=== PATIENT | male | born 1965 | race Caucasian/White ===

== ENCOUNTER 2018-04-18 15:30 | Outpatient (RCR) | payer BC, SELFPAY ==
--- NOTE | 2018-03-09 10:30 | PTTR_ITS ---
DATE: 04/06/18 SUBJECTIVE: Checo indicates today that he has had increased soreness in his L knee for the last few days. Has been trying very hard to pace himself with his activity level, especially things like walking. Did complain of some increased swelling, and noted sensitivity with end range stretching into extension, only limited over pressure was given with end range extension stretches. Manual therapy: ([id number]). Did perform soft tissue stretching of L hamstring , ITB, quad musculature as well as mobilization of patella in all planes, tibiofemoral, anterior, and posterior glides while in seated and supine positions. Gentle soft tissue stretching into end range extension was performed initially was giving patient slight over pressure, but due to complaints of this being uncomfortable, had patient focus on end range extension with towel under heel, pushing knee into full extension independently. Continues to lack approximately 5-10 degrees of end range extension and end range flexion, continues to remain at approximately 130 degrees. Therapeutic procedures ([id number]). * X See flow sheet: Focus was on strengthening of L LE and hip stabilizers as per TKA protocol. * x Provided skilled instruction in proper exercise performance: * x Provided skilled manual cues to facilitate proper muscle recruitment and/ or movement pattern: * Performed 15 mins of wellness as well as IFC and cryotherapy to the L knee with leg elevated on wedge pillow x15 mins. Direct treatment time: 30 mins Total treatment time: 60 mins SG/dl
--- NOTE | 2018-03-22 10:30 | PTTR_ITS ---
DATE: 03/22/18 SUBJECTIVE: Patient states he is less sore today than Monday. States he has been compliant with HEP. Patient educated to focus on ROM exercises at home. He has been icing with his cryocuff OBJECTIVE: Manual therapy: ([id number]). Performed grade 2/3 anterior tibiafemoral joint mobilizations in sitting with distraction. Seated knee flexion stretch. Performed supine tibial distraction to promote total knee extension. Grade 2/3 posterior tibiafemoral mobilizations. Patellafemoral mobilizations all directions. Single knee to chest and hamstring stretch left side. Knee flexion and extension P/AAROM. Knee AAROM after mobilizations and stretching 8-100 degrees. Therapeutic procedures ([id number]). [X] See flow sheet: Continued with left LE strengthening program and ROM. Able to perform 5 minutes pedaling backwards, and 5 minutes pedaling forwards on bike with mild pain. [X] Provided skilled instruction in proper exercise performance: [X] Provided skilled manual cues to facilitate proper muscle recruitment and/or movement pattern: 15 minutes of Wellness portion of the program followed. Inferential stim with cryotherapy x 15 minutes post session. Plan to focus on improving knee ROM emphasized compliancy with home stretching and to focus on the ROM more at home. Direct treatment time: 30 minutes Total treatment time: 60 minutes Geraldine Howard, SPT Mini Medley, MPT
--- NOTE | 2018-03-26 13:25 | PTTR_ITS ---
DATE: 03/26/18 SUBJECTIVE: Checo states that he is doing really well. He has been walking at home as well as his HEP. OBJECTIVE: Manual therapy: ([id number]). mobilization of tib/fem jt including posterior and anterior glides in seated and supine positions. Patellar glides in all directions as well as stretching of hamstrings, ITB and hip flex/quads in modified Jermain test position. LE distractions via leg pulls with over pressure into extension. STM t/o popliteal fossa, ITB and gastroc region. I then continued ROM into extension. He continues to lack approx 5 degrees of ext, and achieved 116 degrees of flex. Therapeutic procedures (64827a N/C). he performed a ther ex routine for global LE strength and stabilization via wellness at no charge. ESTIM, unattended ([id number]) ended with IFC and cryo x 15 min Direct treatment time: 45 min Total treatment time: 65 min
--- NOTE | 2018-03-29 10:30 | PTTR_ITS ---
DATE: March 29, 2018 SUBJECTIVE: Checo notes that last few days he has been really sore. He contributes it to his increased work out post last PT session however is unsure. He notes pain in the distal ITB and into the posterior compartment of his knee. He has not been doing much of anything due to this other than icing. OBJECTIVE: Upon observation incision continues to be healing well. No signs of increased edema. Does present with increased tenderness to the distal ITB and into the distal hamstring, medial compartment. Manual therapy: ([id number]).Patellofemoral joint mobilization all planes to the left knee. Tibiofemoral anterior glides Gr III in seated position to the left knee. Posterior glides to the tibiofemoral joint in supine Gr III to the left knee. Soft tissue stretching to the hamstring, ITB. P/AAROM performed throughout all planes to the left knee. LE distraction via leg pull also provided along with terminal extension stretching. STM throughout the distal ITB into the extensor mechanism and into the posterior hamstring. Good relief post mobilization. Therapeutic procedures (58021p5). * X See flow sheet: Completed open and closed chain stabilization holding on resisted tasks today due to level of irritation. He was able to complete full revolution on stationary bike with first revolution without irritation. * X Provided skilled instruction in proper exercise performance: avoiding compensatory movement promoting body mechanics and postural awareness. Also completed in an alternate fashion to avoid any prolonged stance to reduce irritation to the left knee. * X Provided skilled manual cues to facilitate proper muscle recruitment and/ or movement pattern: Electrical Stim Unattended - Provided to the left knee along with cryotherapy to the posterior and anterior knee with wedge pillow for elevation. This was provided for 15minutes post session. Tolerated session well without complaints of increased irritation. Will monitor his response and continue to advance within symptom allowance. Recommended due to not being back in clinic before next Monday that he complete the stationary bike for ROM. Direct treatment time: 55 minutes Total treatment time: 70 minutes
--- NOTE | 2018-04-04 10:30 | PTTR_ITS ---
DATE: April 04, 2018 SUBJECTIVE: Checo overall pleased with how he is recovering. He follows up with Dr. Leach later today He is having overall less swelling, pain and feels his range continues to improve. He has been doing more walking around campus taking rests as needed. OBJECTIVE: See copy of scanned MD note filed in patients chart Manual therapy: ([id number]).Patellofemoral joint mobilization all planes. Tibiofemoral joint mobilization Gr II/III anterior glides in seated position, posterior glides in supine. Soft tissue stretching to the hamstring, ITB, and SKC. P/AAROM with focus on TKE. LE distraction. Scar tissue mobilization. STM throughout the distal ITB. AA ROM 5-130. Therapeutic procedures ([id number]). * X HEP review: Upgraded to incorporate a TKE stretch * X See flow sheet: Open and closed chain strength and stabilization per protocol. Incorporated fashion pose with resisted theraband. Good isolation noted. Continued to increase repetitions and will continue to advance resistance training within symptom allowance. * X Provided skilled instruction in proper exercise performance: promoting body mechanics and postural awareness. * X Provided skilled manual cues to facilitate proper muscle recruitment and/ or movement pattern: Ended with unattended estim along with cryotherapy to the left knee post session for 15 minutes. Direct treatment time: 45 minutes Total treatment time: 60 minutes
--- NOTE | 2018-04-09 13:00 | PTTR_ITS ---
DATE: April 09, 2018 SUBJECTIVE: Checo notes that he had a good weekend. He did a lot of riding in the car so is a little stiff. He notes less overall soreness since Monday. He also notes that his follow up with his surgeon went great. Next follow up on Jun 20. Continues to note tightness into his hamstring, but less irritation into the distal ITB. Has been utilizing Vit E on his incision. Sleep is improving however still has not gotten a full nights rest. OBJECTIVE: Manual therapy: ([id number]).Patellofemoral joint mobilization all planes to the left knee. Tibiofemoral joint mobilization anterior and posterior glides Gr II/ III in seated and supine position. Sof tissue stretching to the hamstring, ITB, and SKC. Terminal knee extension stretching also provided with LE distraction. Scar tissue mobilization followed. Stitch protruding at distal incision. No drainage or redness noted. Will continue to monitor. Therapeutic procedures ([id number]). * X HEP review: Promoting TKE stretching. Gait mechanics * X See flow sheet: Incorporated open and closed chain stabilization per flow sheet. Completed alternate fashion to reduce stress on the right knee which is close to replacement level. He tolerated this much better in comparison to previous sessions. Advanced to sit to stand transfers with use of Airex under to reduce stress and promote eccentric control. * X Provided skilled instruction in proper exercise performance: promoting proper body mechanics and activation of the quadriceps musculature * X Provided skilled manual cues to facilitate proper muscle recruitment and/ or movement pattern: avoiding compensatory movement patterns. Electrical Stim Unattended : Provided to the left knee at no charge along with cryotherapy post session. Wedge pillow utilized for elevation. Completed for 15 minutes to end todays session. Patient hesitant to advance his strengthening in fear of increased pain. Will continue to advance slowly with PRE's. Direct treatment time: 45 minutes Total treatment time: 60 minutes
--- NOTE | 2018-04-12 08:14 | PTTR_ITS ---
DATE: 04/12/18 NO CHARGE OBJECTIVE: Today I took Checo through his strengthening program in a circuit fashion. Emphasized LE strengthening as well as core stabilization. See flow sheets for lists of exercises, weights and repetitions. He did note increased fatigue throughout the LE. Did report lateral quadriceps discomfort when performing sit to stands. At the conclusion of today's session did have what he describes as increased sensation to the popliteal fossa, not noting pain, but felt as though he had stretched the back of his knee during today's session. This could be contributed to the change in his program or stretching into extension. Will monitor [place]o's response progressing his program accordingly. He received cryotherapy to the left knee at the end of today's session x10 minutes. Direct treatment time: 11:00 til 11:40 A.M. ESTUARDO/arron
--- NOTE | 2018-04-12 10:30 | PTTR_ITS ---
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 He notes generalized stiffness however overall feels that he is holding up well. OBJECTIVE: Manual therapy: ([id number]). Patellofemoral joint mobilization to the left knee all planes. Tibiofemoral anterior glides in seated position Gr II. Posterior glides in supine Gr III. Soft tissue stretching to the hamstring, and SKC. P/ AAROM promoting TKE. Improved TKE post mobilization today. Flexion remains WNL. Therapeutic procedures: Under supervision of Paolo Sommers ATC see his note for specifics. 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 Will monitor his response to this and proceed accordingly. Direct treatment time: 30 minutes Continuation of treatment via ATC. See his note for specifics.
--- NOTE | 2018-04-18 15:30 | PTTR_ITS ---
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 Does not note any increase in pain after last session. OBJECTIVE: Manual therapy: ([id number]). Received patella-femoral mobs in all planes, PA and AP glides to the tibio-femoral joint, soft tissue stretching of hamstring and piriformis. PROM into left knee flexion and extension. Extension ROM coupled with tibial distraction in supine position. Therapeutic procedures ([id number]).After warm up on stationary bike performed modified therex program as per flow sheet focusing on open and closed chain strengthening of left LE. Treatment concluded with cryo for 10 min. Continues to present with excellent ROM into flexion with mild tightness into extension. * X See flow sheet: [] Direct treatment time: 30 min Total treatment time: 40 min
== END 2018-04-20 23:59 | disposition home or self-care (01) ==
LOC: PT 15:30
PROVIDERS: PCP Emergency Medicine; Referring Provider Orthopaedic Surgery Adult Reconstructive Orthopaedic Surgery; Visit Provider Orthopaedic Surgery Adult Reconstructive Orthopaedic Surgery
DX: Z47.1 Aftercare following joint replacement surgery (principal); Z96.652 Presence of left artificial knee joint
CPT/HCPCS: 97014; 97110; 97140

== ENCOUNTER 2018-10-15 12:20 | Outpatient (CLI) | payer BC, SELFPAY ==
[2018-10-15 13:55] LABS: Cholesterol 232 mg/dL (50-200); HDL Cholesterol 49 mg/dL (40-60); LDL CHOLESTEROL 152 mg/dL (<100); Triglyceride 132 mg/dL (30-150)
== END 2018-10-15 12:40 ==
PROVIDERS: PCP Emergency Medicine; Visit Provider Emergency Medicine
DX: E78.5 Hyperlipidemia, unspecified (principal)
CPT/HCPCS: 36415; 80061; 83721

== ENCOUNTER 2019-02-04 09:53 | Outpatient (CLI) | payer BC, SELFPAY ==
[2019-02-04 10:51] LABS: HCT 40.9 % (40.0-50.0); HGB 14.6 g/dL (13.5-17.5); Mean Corp. HGB Concentration 35.7 g/dL (32.0-36.0); Mean Corpuscular Volume 86.8 fL (80-95); Mean Platelet Volume 10.9 fL (8.0-11.0); Platelet Count 194 x1000/uL (130-400); RBC 4.71 m/cumm (4.50-6.00); RBC Distribution Width 13.3 % (11.8-14.1)
[2019-02-04 11:42] LABS: ALT 52 U/L (12-78); AST 27 U/L (15-37); Albumin 4.2 g/dL (3.4-5.0); Alkaline Phosphatase 82 U/L (46-116); Anion Gap 9.2 mmol/L (3-11); BUN 28 mg/dL (7-18); Bilirubin, Total 0.5 mg/dL (0.2-1.0); CO2 27.8 mmol/L (21.0-32.0); CREATININE 0.88 mg/dL (0.70-1.30); Calcium 9.6 mg/dL (8.5-10.1); Chloride 103 mmol/L (98-107); Glucose 124 mg/dL (70-100); Potassium 4.6 mmol/L (3.5-5.1); Sodium 140 mmol/L (136-145); Total Protein 7.5 g/dL (6.4-8.2)
== END 2019-02-04 10:13 ==
PROVIDERS: PCP Emergency Medicine; Visit Provider Family Medicine
DX: Z01.818 Encounter for other preprocedural examination (principal); M25.561 Pain in right knee
CPT/HCPCS: 36415; 80053; 85027

== ENCOUNTER 2020-12-10 04:03 | Outpatient (CLI) | payer BC, SELFPAY ==
[2020-12-10 07:42] LABS: Hemoglobin A1C 5.4 % (<5.7)
[2020-12-10 08:19] LABS: Calculated LDL 129 mg/dL (<100); Cholesterol 205 mg/dL (<200); HDL Cholesterol 42 mg/dL (40-60); Triglyceride 174 mg/dL (<150)
[2020-12-10 18:12] LABS: PSA, Screening <0.1 ng/mL (0.0-3.5)
== END 2020-12-10 04:04 | disposition home or self-care (01) ==
LOC: LBO 04:03
PROVIDERS: PCP Emergency Medicine; Visit Provider Emergency Medicine
DX: E11.9 Type 2 diabetes mellitus without complications (principal); E66.9 Obesity, unspecified; Z12.5 Encounter for screening for malignant neoplasm of prostate
CPT/HCPCS: 36415; 80061; 84153; 83036

== ENCOUNTER 2020-12-14 04:29 | Outpatient (CLI) | payer BC, SELFPAY ==
[2020-12-14 17:11] LABS: Calculated LDL 137 mg/dL (<100); Cholesterol 218 mg/dL (<200); HDL Cholesterol 48 mg/dL (40-60); Triglyceride 168 mg/dL (<150)
[2020-12-14 22:22] LABS: PSA, Diagnostic 0.9 ng/mL (0.0-3.5)
== END 2020-12-14 04:30 | disposition home or self-care (01) ==
LOC: LBO 04:29
PROVIDERS: PCP Emergency Medicine; Visit Provider Emergency Medicine
DX: E78.5 Hyperlipidemia, unspecified (principal); R97.20 Elevated prostate specific antigen [PSA]
CPT/HCPCS: 36415; 80061; 84153

== ENCOUNTER → 2022-03-08 00:33 | Outpatient (CLI) | payer BC, SELFPAY ==
--- OUTSIDE RECORDS SUMMARY | 2022-03-08 00:35 | XMS_ITS | Encounter Summary ---
:1965 Author Organization [facility] [place] [address] Care Team Providers Name Role Phone Jermain Montalvo DO Primary Care Provider Encounter Details Date Type Department Care Team Description 02/19/2019 Telephone Pre-Admission Rayna strange at [facility] [address] [facility] [place] [address] Social History Tobacco Use Types Packs/Day Years Used Date Never Smoker Smokeless Tobacco: Never Used Alcohol Use Standard Drinks/Week Comments Not Currently 0 (1 standard drink = 0.6 oz pure alcoho l) Sex Assigned at Date Recorded Not on file documented as of this encounter Plan of Treatment Upcoming Encounters Date Type Specialty Care Team Description 03/15/2022 Procedure visit Dermatology Olamide Grayson MD [facility] DERMATOLOGY [place], [place] [address] (Wo rk) documented as of this encounter Visit Diagnoses Not on filedocumented in this encounter Care Teams Electrophonic Engineer Relationship Specialty Start Date End Date Jermain Montalvo DO PCP - General 01/28/[address] [place] [address] documented as of this encounter
--- OUTSIDE RECORDS SUMMARY | 2022-03-08 00:35 | XMS_ITS | Encounter Summary ---
:1965 Author Organization [facility] [place] [address] Care Team Providers Name Role Phone Jermain Montalvo DO Primary Care Provider Encounter Details Date Type Department Care Team Description 12/05/2018 External Results Laboratory at Mesfin Meyers MD [address] [place] [address] [place] [address] [phone] Social History Tobacco Use Types Packs/Day Years Used Date Never Smoker Sex Assigned at Date Recorded Not on file documented as of this encounter Plan of Treatment Upcoming Encounters Date Type Specialty Care Team Description 03/15/2022 Procedure visit Dermatology Olamide Grayson MD [facility] DERMATOLOGY [place], [place] [address] (Wo rk) documented as of this encounter Procedures Procedure Name Priority Date/Time Associated Comments Diagnosis HEMOGRAM Routine 12/05/2018 12:00 Results for this PM EDT procedure are i n the results section. TYPE AND SCREEN Routine 12/05/2018 12:00 Results for this (MC/CGP/JUAN) PM EDT procedure a re in the results section. MRSA CULTURE Routine 12/05/2018 12:00 Results for this PM EDT procedure are i n the results section. COMPREHENSIVE Routine 12/05/2018 12:00 Results fo r this METABOLIC PANEL PM EDT procedure ar e in (NON-FASTING) the results section. documented in this encounter Results (ABNORMAL) Staph aureus/MRSA Culture Screen (12/05/2018 12:00 PM EDT[facility] Signature [facility] RESULT MRSA SCREEN [facility] (EXTERNAL/A [facility]) Specimen (Source) Anatomical Collection Method Collection Time Re ceived Time Location / / Volume Laterality Nasal structure 12/05/2018 12:00 12/06/19 19 1:23 (body structure) PM EDT PM EDT Narrative [facility] - 12/06/2018 7:4 0 AM EDT Specimen source: NARES Microbiology susceptibilities will displ ay in 'Abn?' column if performed. NO METHCILLIN RESISTANT STAPH. AUREUS (M RSA) ISOLATED. Mesfin Leach MD MICROBIOLOGY - GENERAL ORDER STEVEN Performing Organization Address City/[facility] Code Phon e Number [facility] [address] [place], [place] [address] (ABNORMAL) Type and screen (LEB/CGP) (12/05/2018 12:00 PM EDT) [facility] gist Method Time Signature ABO Grouping B (External ABO [facility] Lab) [facility] Rh POSITIVE [facility] (External [facility]) AB Screen NEGATIVE NEGATIVE [facility] Interp (External [facility]) Specimen Anatomical Collection Method Collection Time Receive d Time (Source) Location / / Volume Laterality 12/05/2018 12:00 12/05/2018 1:23 PM EDT PM EDT Narrative [facility] - 12/05/2018 3:4 3 PM EDT Has the pt. been transfused or in the last 3 mths? NO Mesfin Leach MD BLOOD BANK ORDERABLES Performing Organization Address City/[facility] Phon e Number [facility] [address] [place], [place] [address] (ABNORMAL) Comprehensive metabolic panel (non-fasting) (12/05/2018 12:00 PM EDT) Analysis Performed At Patho logist Time Signature Sodium 141 135 - 145 [facility] (External mmol/L [facility] Lab) Potassium 4.5 3.5 - 5.1 [facility] (External mmol/L [facility]) Chloride 103 98 - 107 [facility] (External mmol/L [facility]) CO2 28 21 - 32 [facility] (External mmol/L [facility]) Anion Gap 14.5 9 - 16.5 [facility] (External mmol/L [facility]) Osmolality 277 261 - 280 [facility] (External mosm/kg [facility]) Glucose Lvl 110 (ExtH) 74 - 106 [facility] mg/dL [facility] BUN 24 (ExtH) 7 - 18 [facility] mg/dL [facility] Creatinine 1.02 0.70 - [facility] (External 1.30 mg/dL [facility]) BUN/Cre Ratio 23.5 7.0 - 25.0 [facility] (External [facility]) Estimated GFR > 60 mL/min [facility] (External [facility]) Comment: Estimated GFR is to assist you in evalua ting your patient and optimizing drug dosing. Per NKDBP, they classify normal renal function as any GFR > 60 ml/min/1.72m2; chronic kidney disea se when GFR <60, and renal failure when GFR <15. ??This calcu lation may not be valid for patients with atypical muscle mass (very lean or obese), acute renal failure, and in ry ents with diabetic kidney disease. Calcium 9.5 (External Lab) 8.5 - 10.1 mg/dL [facility] Total Protein 8.4 (ExtH) 6.4 - 8.2 g/dL [facility] Albumin 4.6 (External Lab) 3.4 - 5.0 g/dL [facility] Globulin 3.8 (External Lab) 2.7 - 4.5 g/dL [facility] Alb/Globulin Ratio 1.2 (External Lab) 0.8 - 1.4 [facility] Alk Phos 81 (External Lab) 50 - 136 U/L [facility] ALT 45 (External Lab) 16 - 63 U/L [facility] AST 26 (External Lab) 15 - 37 U/L [facility] Total Bilirubin 0.6 (External Lab) 0.2 - 1.0 mg/dL [facility] Specimen Anatomical Collection Method Collection Time Receive d Time (Source) Location / / Volume Laterality 12/05/2018 12:00 12/05/2018 1:23 PM EDT PM EDT Mesfin Leach MD CHEMISTRY ORDERABLES Performing Organization Address City/[facility]/ZIP Code Phon e Number [facility] [address] [place], [place] [address] (ABNORMAL) Hemogram (12/05/2018 12:00 PM EDT) [facility] Method Time Signature WBC 5.5 4.0 - 10.0 [facility] (External 10^3/uL [facility]) RBC 4.76 4.63 - [facility] (External 6.08 [facility]) 10^6/uL Hemoglobin 14.5 13.7 - [facility] (External 17.5 g/dL [facility]) Hematocrit 41.3 40.0 - [facility] (External 51.0 % [facility]) MCV 86.8 79.0 - [facility] (External 92.0 fL [facility]) MCH 30.5 25.6 - [facility] (External 32.2 pg [facility]) MCHC 35.1 32.0 - [facility] (External 36.5 g/dL [facility]) RDWCV 13.4 10.9 - [facility] (External 14.4 % [facility]) RDWSD 41 35 - 46 fL [facility] (External [facility]) Platelets 215 145 - 370 [facility] (External 10^3/uL [facility]) MPV 11.0 9.0 - 12.0 [facility] (External fL [facility]) Periph Smear NO [facility] Rev (External [facility]) Specimen Anatomical Collection Method Collection Time Receive d Time (Source) Location / / Volume Laterality 12/05/2018 12:00 12/05/2018 1:23 PM EDT PM EDT Mesfin Leach MD HEMATOLOGY ORDERABLES Performing Organization Address City/[facility] Phon e Number [facility] [address] [place], [place] [address] documented in this encounter Visit Diagnoses Not on filedocumented in this encounter Care Teams Net Front End Developer Relationship Specialty Start Date End Date Jermain Montalvo DO PCP - General 01/28/[address] [place] [address] (work) documented as of this encounter
--- OUTSIDE RECORDS SUMMARY | 2022-03-08 00:35 | XMS_ITS | Encounter Summary ---
:1965 Author Organization [facility] [place] [address] Care Team Providers Name Role Phone Jermain Montalvo DO Primary Care Provider Encounter Details Date Type Department Care Team Description 02/08/2021 Clinical Support Dermatology at [facility] Yam[place], Neris sit for suture Road Mini Salomon MD removal [address] [place], [place] [address] [facility] [phone] [place] [address] Social History Tobacco Use Types Packs/Day Years Used Date Never Smoker Smokeless Tobacco: Never Used Alcohol Use Standard Drinks/Week Comments Not Currently 0 (1 standard drink = 0.6 oz pure alcoho l) Sex Assigned at Date Recorded Not on file documented as of this encounter Progress Notes Mini Ovalle MD - 02/08/2021 9:40 AM EDT Images from the original note were not included. Patient: Checo Sanchez Date of . 1965 Today's Date: 02/08/2021 Checo Sanchez is a 55 y.o. male here for suture removal, 7 days s/p Mohs for BCC on right paranasalwith advancement flap repair and Mohs for BCC on right nasal dorsum with FTSG. Photograph: Plan: 1. Sutures removed today 2. 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 3. Follow up with Dr. Buck as scheduled - Thursday 02/15 Reviewed and signed by: Mini Ovalle MD Dermatology Resident [facility] documented in this encounter Plan of Treatment Upcoming Encounters Date Type Specialty Care Team Description 03/15/2022 Procedure visit Dermatology Olamide Grayson MD [facility] DERMATOLOGY [place], [place] [address] (Wo rk) documented as of this encounter Visit Diagnoses Diagnosis Visit for suture removal Encounter for removal of sutures documented in this encounter Care Teams Residential Treatment Staff Relationship Specialty Start Date End Date Jermain Montalvo DO PCP - General 01/28/[address] [place] [address] documented as of this encounter
--- OUTSIDE RECORDS SUMMARY | 2022-03-08 00:35 | XMS_ITS | Encounter Summary ---
:1965 Author Organization [facility] [place] [address] Care Team Providers Name Role Phone Jermain Montalvo DO Primary Care Provider Reason for Visit Reason Comments Basal Cell Carcinoma Consultation (Routine) - Closed Specialty Diagnoses / Procedures Referred By Contact Refer red To Contact Dermatology Diagnoses Neoplasm of uncertain behavior of skin Basal cell carcinoma (BCC) of forehead Alayna Villalba MD Leboeuf, Matthew R, MD [facility] [address] [facility] [place] [address] [place] [address] Fax: Referral ID Status Reason Start Date Expiration Date Visits V isits Requested Authorized [id number] Closed Consult, 12/07/2020 12/07/2021 1 1 Test & Treat Encounter Details Date Type Department Care Team Description 02/01/2021 Procedure visit Dermatology at [facility] Basal cell carcinoma (BCC) of dorsum of nose; Annmarie Mckay MD Basal cell carcinoma of right side of no se; [address] [facility] Prophylactic antibiotic [facility] [id number] [place] [phone] [place] [address] Social History Tobacco Use Types Packs/Day Years Used Date Never Smoker Smokeless Tobacco: Never Used Alcohol Use Standard Drinks/Week Comments Not Currently 0 (1 standard drink = 0.6 oz pure alcoho l) Sex Assigned at Date Recorded Not on file documented as of this encounter Last Filed Vital Signs Vital Sign Reading Time Taken Comments Blood Pressure 135/88 02/01/2021 7:58 AM EDT Pulse 60 02/01/2021 7:58 AM EDT Temperature - - Respiratory Rate - - Oxygen Saturation - - Inhaled Oxygen Concentration - - Weight - - Height - - Body Mass Index - - documented in this encounter Patient Instructions Patient InstructionsSaGretel calles, KILN FURNITURE CASTER - 02/01/2021 8:00 AM EDT Your staff Mohs surgeon today was Alexys Siegel MD, PhD. FLAP CLOSURE Your wound(s) was repaired by a flap closure. A flap closure is rearrangement of skin tissue. A flapis performed when the area has too much tension, or when a simple side to side closure cannot be performed, or when a flap would lead to better cosmetic outcome with a flap. You will need to have sutures removed in one week. Caring for a flap is very similar to caring for regular side to side stitches, except more caution should be used when cleaning the incisions as some flaps can be delicate. Instructions for wound care are below. Please keep in mind these are general guidelines. When in doubt, or if you have more specific questions, please call us. Keep below as a reference while caring for your wound(s): Wound Care ??? Gently remove your initial bandage (after 48 hours from surgery). It is normal to have swelling and bruising. ??? Begin wound care as below. ??? If your initial bandage only stayed on for 24 hours (for example, falls off sooner), this is okay. Resume your wound care and bandaging instructions as below. ??? Change your bandage once a day (and whenever it becomes wet or soaks through) continue for 7 days. ??? For bandage changes: o Wash hands with soap and water, or use gloves that you can purchase at a local pharmacy or drug store. o Clean the surgical area with cotton-tipped swabs or soft gauze dipped in soapy water (recommend liquid soap in clean room temperature water). Roll the cotton swab over the incision with soapy water, then with plain water, and then gently pat dry. Do not scrub the area with a washcloth. Do not put direct shower water pressure onto your wound. Do not pick off any scabs. It is okay to allow soapy water to run over your wound in the shower, however. o If you cannot remove any bloody or crusted areas, you may soak the area with wet gauze first for 15 to 20 minutes to help soften it o Pat the area dry with clean gauze or cotton swabs. Do not rub. o Use a cotton swab to apply a generous layer of petrolatum over the incision lines and any open-wound areas. o Make sure your tube or jar of petrolatum is new or unused to prevent prior contamination from entering your wound. Avoid double dipping. o After applying petrolatum, use a clean nonstick gauze or other nonstick dressing, such as Telfa. This may be purchased over the counter at a drug store. Do not use regular gauze as it will stick to your wound and can peel off healing skin with bandage changes. o Secure the bandage with paper tape or a bandage. Band-aids are okay, but typically have more adhesive that can irritate the skin compared to paper tape. This can be purchased at a drug store. o Continue this wound care daily for 7 days. If any areas of the flap were left open to heal, continue to apply Vaseline until healed. o Keep in mind that if you do not want to use a bandage at all due to difficulty, irritation of skin, cost, or inconvenience --- you can certainly avoid bandages altogether. However, it is imperative that you continue with topical petrolatum (plain, fragrance-free). This may need to be applied several times daily if it gets wiped off, washed off, or dries out. Things to purchase for wound care: -Nonstick gauze -A tube or tub of petrolatum jelly (fragrance-free, no dye, not lotion) -paper tape -cotton swabs -gloves (optional) -Dial or other antibacterial liquid soap After Surgery 1. Avoid tobacco, smoking/vapors, and cannabis (marijuana) for at least 3 weeks after your surgery. Smoking impairs healing and leads to worse scarring. Even cutting back on tobacco is helpful if you cannot abstain completely. 2. Limit alcohol intake to one drink per day over the next 3 days. 3. Do not participate in athletic activities for 5-7 days. Athletic activity is a relative term, butthis is considered to be anything that could potentially raise your heartrate or blood pressure. Elevating your heart rate and blood pressure can increase risks of swelling, bleeding, wound opening, orlead to worse scarring. Walking at a leisurely pace is fine for most people, but not if you are going walking for the purpose of exercise. 4. Do not lift anything heavier than 10 pounds until your sutures are removed. 5. Some project controls scheduler may need to be delayed or delegated such as vacuuming, mowing the lawn, snow shoveling, or caring for young children that need to be carried/lifted. Working any major muscle groups increases your heart rate and can increasing bleeding. 6. Avoid swimming, hot tubs, and direct water pressure for 3 weeks after surgery. You may shower once your initial bandage comes off in 48 hours, however. 7. Avoid antibiotic ointments such as triple antibiotic creams. Stick with your wound care instructions, please. 8. Whenever possible, it is helpful to take photographs with your camera or cell phone of any problems or concerns you see with your wound. We often ask for photos when you call with questions. 9. Starting 2 months following surgery, you can begin firm massage to any areas of firm scar along your incision to soften the scar and reduce bumpiness. Do this 3 times per day, 3 minutes each time. Do not start massage before 2 months. 10. Your wound will appear completely healed soon after sutures are removed (about 1 week), but incisions can remain bright red for several weeks. Then the scarring and healing process continues under the skin for 6 months up to 2 years. The scar may become less red, less firm, and more subtle during this time but the rate of improvement varies depending on the person. Most redness, discoloration, bumpiness resolves by 6 months. 11. Keep your follow-up appointments and make sure to continue to have your skin checked, as often as is recommended by your crime scene investigator, for new skin cancers. This is once per year for most patients. 12. Your can expect your scar to be red for several weeks with gradual fading of the redness. The scar will also be raised and lumpy until the dissolvable sutures under the skin get absorbed by your body which can take 3-4 months. The scar will flatten eventually. 13. Occasionally, about 20% of the time, on the face, the stitches under the skin can spit out of the incision to the surface. It can start out looking like a pimple or blemish directly on your incision. Sometimes it can look like a small mini infection so please let us know before you go to another provider for antibiotics. This means that the suture may need to be trimmed or removed when you return for your wound check. This typically occurs a few weeks after surgery if it does occur. 14. To optimize your scar, and best cosmetic result, please avoid direct sunlight to your incision for the first 6 months following surgery. UV ray exposure to your incision may cause the redness to last longer, or to cause permanent darkening of your scar. You can avoid sun by covering your incision w ith a bandage when outdoors, or wearing SPF 30 to 50 sunscreen (broad spectrum). 15. Sometimes after your sutures are removed, your incision may still be healing for 1 more week. Because of this, avoid make-up and sunscreen until approximately 2 weeks after surgery, or sooner if your skin edges look completely sealed. 16. Flaps may sometimes thicken or become firm several weeks after surgery. This is expected in sometypes of flaps and in certain locations on the face. This is called hypertrophy. If this occurs, at your wound check, you may need small amounts of medicine injected into your flap to help it soften orthin. This will be determined at your follow-up visit. 17. Flaps and skin surgery in general can lead to mild sensation loss (numbness) in the area of surgery. Massage starting at 8 weeks after surgery can help. 18. Bruising. It is very common to have bruising in swelling in any area of the face, even in areas that are distant from where we did surgery. This is especially common 24 to 48 hours after surgery when fluid and swelling shifts around in the face. For example, surgery on the forehead, temples, or cheeks often leads to eyelid swelling of both eyes, black eyes, or dark purple bruising. This is expected in most patients and will gradually resolve. However, if you have severe pain not resolving withover the counter medicine, please call us. You can use ice packs or a bag of frozen peas for 15-20 minutes 3-4 times daily to areas of swelling on the face; use caution not to put the icy item directlyon your incision, directly onto your skin as this can damage skin, and avoid prolonged use more than20 minutes. The best way to use ice packs is over the bandage, or a light cloth/paper towel between the ice pack and your skin. You can ice for as many days as needed until swelling has resolved. Antibiotics: If you were given antibiotic prescription, it is important to start them the evening of your surgerydate. Most patients do not need antibiotics after surgery. For pain: Most patients of different ages do not require pain medications. If you do feel soreness or pain, start by taking over the counter extra strength acetaminophen (up to 3000 mg in a 24 hour period). Generally, we like you to avoid NSAIDS (non-steroid anti-inflammatory drugs such as ibuprofen) for the first 48 hours after surgery as this can increase risk of bleeding. However, if acetaminophen is not helping with pain, you can alternate acetaminophen with iburpofen (ibuprofen 400 mg every 4 hours.) Icepacks over your bandage without getting your bandage wet can also help with pain and swelling, for up to 20 minutes at a time (20 minutes off between icing sessions). Frozen peas work well as ice packs. THIS IS AN EXAMPLE OF A PAIN TREATMENT SCHEDULE: 1) You can take 500 mg acetaminophen one tablet by mouth at 6:00pm. This is over the counter. 2) You can take 400 mg of ibuprofen two hours later, at 8:00 pm, or other NSAID such as naproxen, aslong as it does not interact with your other medications and your other doctors have not told you toavoid this. This is over the counter. Check to see how many milligrams (mg) each of your ibuprofen tablets are. Most of the time, ibuprofen comes in 200 mg tablets, so 400 mg would mean taking two of these tablets or capsules. 3) You can take 500 mg of acetaminophen at 10:00 pm. Keep track of your total acetaminophen in a 24 hour period as your maximum should be 3000 mg total in a 24 hour period of this medication. 4) At midnight, you can take another 400 mg of ibuprofen. 5) you can continue on this schedule over the next 2 days, making sure to keep tabs of your total acetaminophen. If you are still in pain after trying the above, please call us. When to call your surgeon: ??? Fever of 100.4 degrees Fahrenheit or higher ??? Bleeding not controlled with direct firm pressure to your wound. Bleeding is most common in the first 48 hours. ??? Pain that is worsening and not relieved by over the counter medications such as acetaminophen (up to 3000 mg in a 24 hour period) ??? Wound reopening after stitching ??? Pus or bad odor from your wound ??? Worsening redness and warmth around your wound ??? If you think your surgery site is infected, please call us before seeking care or antibiotics from other providers ??? Please call us before seeking care in an emergency room or primary care. ??? If you do call, please leave your full name, phone number, date of , date of surgery, and medical record number if you have it. If after hours, please call the terminal system operator or [phone] and ask for the crime scene investigator on-call. If you have any non-urgent questions or concerns, please feel free to call my office or contact me through our patient portal, DIY, at [email or web address] How to contact us during business hours Dermatology at [facility] [address]: Mohs scheduling or Mohs follow-up appointments: [phone] documented in this encounter Progress Notes Alexys Siegel MD - 02/01/2021 8:00 AM EDT Images from the original note were not included. Summary of Procedure(s): Site#1: Right paranasal Tumor Type: basal cell carcinoma Stages to clear tumor: 2 Repair: advancement flap Site#2: Right nasal dorsum Tumor Type: Basal Cell Carcinoma, nodular Stages to clear tumor: 1 Repair: full-thickness skin graft Images: Patient with multiple other sites that will be treated at a future visit. The patient was asked to call with any issues and is aware that I am available 13/03 should questionsarise. Alexys Siegel MD PhD Mohs Micrographic Surgery and Dermatologic Oncology Department of Dermatology Please note that I have reviewed the preoperative checklist from today's nursing visit including relevant social history and medications. I have reviewed the preoperative photos if available and the biopsy report. VITAL SIGNS: BP 135/88 (BP Location (NBP): Left arm, Patient Position: Sitting, BP Cuff Sizes: Adult (25-34 cm)) Pulse 60 PHYSICAL EXAMINATION: General: patient is awake, alert, oriented and in no acute distress. Skin: Focused examination of surgical site(s) performed which shows a pearly plaque. PHYSICIAN REVIEW OF REPORTS, RECORDS, IMAGES: 1) The accompanying pathology report(s) associated with aforementioned biopsy slide(s) were/was alsoreviewed. Assessment: Checo Sanchez is a 55 y.o. male presenting for: 1. Biopsy-proven basal cell carcinoma located on the right paranasal. Frozen biopsy performed today. 2. Biopsy-proven basal cell carcinoma, nodular located on the right nasal dorusm. Frozen biopsy performed today. Plan: 1. Findings from the biopsy report, today's clinical exam, and other pertinent details were reviewedwith patient today. All questions were answered. 2. Discussed treatment options based on the above findings. We recommended Mohs micrographic surgeryfor treatment of this tumor. Mohs micrographic surgery was indicated due to patient, site and/or tumor characteristics (see operative report for specific indication). 3. We discussed risks, benefits, and alternative treatment options to the Mohs micrographic surgery procedure and pertinent information including but not limited to the following: ?? Risks include bleeding, infection, scar, recurrence, incomplete tumor removal or inability to cure with surgery alone if the tumor features are more aggressive than the initial pathology indicates. Occasionally, additional adjuvant treatments may be recommended. Additional risks include large wound, prolonged wound and healing, pain, swelling, bruising, increased appearance of vessels or worseningerythema of baseline skin; more rarely risks include damage to underlying structures such as nerves,cartilage, or muscle which could lead to temporary or permanent loss of sensation or motor function. ?? Benefit is precise tumor removal ?? If reconstruction is performed, it is specific to the patient and defect. ?? Discussed that the shape, size, depth of the wound is often not known until the tumor is cleared and thus the reconstruction options are sometimes not known until after tumor clearance. Occasionally, referrals to other providers may be recommended for reconstruction based on patient preference and need. ?? Reviewed the pros and cons of common reconstructions used for this tumor type, size, and location, and that reconstruction may lead to change in appearance. ?? Natural history of scar was discussed, including that the scar will continue to mature for 1-2 years. Recommended avoidance of special ointments or scar creams, and avoidance of direct sun exposure to the scar for optimal recovery. ?? Reviewed that there are some aspects of cosmesis that are dependent on patient's characteristics such as age, skin laxity/texture factors, inflammatory skin diseases such as rosacea, prior surgery/radiation, degree of actinic damage, smoking status, strength of the patient's immune system, diligentwound care, medications, and genetics. ?? Having Mohs surgery may lead to physical limitations for optimal healing, such as restricted physical activity and heavy lifting. 4. The nature of sun-induced photo-aging and skin cancers was discussed. Recommended sun avoidance when possible, especially peak hours of sun 10 am to 2pm, protective clothing such as wide-brimmed hats and long-sleeved clothing, and the use of SPF broad-spectrum sunscreen SPF 50 or higher. 5. Signs and symptoms of skin cancer reviewed. Patient to report any new, changing, or symptomatic lesions and follow up with his or her crime scene investigator or other skin provider. 6. Discussed avoiding direct sun exposure to scars for best cosmetic result. Note initiated by Adalgisa Santana, RN Adalgisa Santana RN has performed the documentation for this encounter in the presence of and acting as a scribe for Dr. Siegel I performed the above scribed service and agree with the accuracy of the documentation in this encounter. Reviewed and signed by: Alexys Siegel Dermatology [facility] Alexys Siegel MD - 02/01/2021 8:00 AM EDT Frozen Biopsy Procedure: Skin biopsy by shave technique Location: right paranasal Discussed indications for procedure and expectations including risks and benefits. Verbal consent obtained. Skin prep with alcohol. Local anesthesia with 1% xylocaine, 1/100,000 epinephrine. A sample of the lesion was removed by shave technique to the level of the dermis and submitted for frozen sections and revealed basal cell carcinoma. Hemostasis obtained (AlCl and/or electrocautery). There were no complications; the pt. tolerated the procedure well. Alexys Siegel MD PhD Mohs Micrographic Surgery and Dermatologic Oncology Department of Dermatology [address] [place] [address] Mohs micrographic Surgery Operative Report Site#1: Right paranasal Patient name: Checo Sanchez : 1965 Date: 02/01/2021 Staff Surgeon: Alexys Siegel MD PhD Nursing/Road Grader Operator(s): Adalgisa Santana RN, Gretel Brush KILN FURNITURE CASTER, Laura Senior KIER OPERATOR, Ava Viveros [facility], Ton Mendenhall KILN FURNITURE CASTER, Dilcia Smith [facility] Claims Representative (s): Michelle Johnson Pre-operative diagnosis: Basal Cell Carcinoma Post-operative diagnosis: Basal Cell Carcinoma Location/Site: right paranasal Procedure: Mohs micrographic surgery Indication(s) for Mohs micrographic surgery: Anatomic location for tissue conservation Stages: 2 Preoperative size of tumor: 1.0 x 0.8 cm Stage I The nature and purpose of the procedure, associated risks, possible consequences and complications,and alternative forms of treatment were explained in detail. We reviewed the possible repairs based on the clinical appearance of tumor but discussed that often the repair options may not be known until the tumor has hayder extirpated. Informed consent and permission to take photographs were obtained. The site was confirmed with the patient/authorized route service representative/referring physician and/or a photograph form time of biopsy. A pre-operative time-out (procedural pause) was conducted with no unresolved d iscrepancies noted. Local anesthesia was obtained with 1% lidocaine with 1:100,000 epinephrine. The surgical site was prepped and draped in the usual sterile manner. With all visible gross tumor completely excised, the borders of the tumor and 2-3 mm margins were excised as a complete layer. Hemostasis was achieved by electrocoagulation. The excised tissue was oriented and divided into 2 sections, chromacoded, and submitted for frozen sections. The patient tolerated the procedure well and without complications. On microscopic evaluation of the frozen sections, residual tumor was identified as basal cell carcinoma (type of tumor) on section A2 (see section number on map). Stage II The surgical site was re-anesthetized with 1% lidocaine with 1:100,000 epinephrine, re-prepped and redraped in a sterile manner. The residual tumor was re-excised as a complete layer 2-3mm in thickness using the Mohs map to delineate area of residual tumor. Hemostasis was achieved with electrocoagulat ion. The tissue was oriented and divided into 1 sections, chromacoded, and submitted for frozen sections. The patient tolerated the procedure well and without complications. On microscopic evaluation of the frozen sections, no residual tumor was identified on the deep or outer border of the sections. Depth of excision subcutaneous tissue Final defect size: 1.6 x 1.3 cm Alexys Siegel MD PhD Mohs Micrographic Surgery and Dermatologic Oncology Department of Dermatology [address] [place] [address] Repair Report (Flap) Patient name: Checo Sanchez Staff Surgeon: Alexys Siegel MD PhD Nurse Transition(s): same as above assistant account executive: Mini Harris MD, Adalgisa Santana RN Date: 02/01/2021 Clinical Diagnosis: skin and soft tissue defect status post Mohs micrographic surgery Location/Site: right paranasal Indication: repair of wound with hinduism of anatomy/function Defect size to be repaired: 1.6 x 1.3 cm Procedure: advancement flap repair (tissue rearrangement) Final flap size: 5 x 3 cm 2 Procedure Details: Due to the size and location of the defect resulting from the complete removal of the tumor, the postoperative risk of hemorrhage, infection, and the possibility of serious deformity from scarring, and in order to restore proper function and prevent loss of function, the defect was closed with an advancement flap. The nature and purpose of the procedure, associated risks, possible consequences, complications andalternative methods of treatment were explained to the patient in detail. An informed consent was obtained. Local anesthesia was obtained with a solution of 1-% lidocaine with 1:100,000 epinephrine. The surgical site was prepped and draped in the usual sterile manner. Any beveled edges of the defect were repaired with a scalpel blade. The flap was created by making incisions along right paranasal cheek. The flap and the wound edges were undermined, and hemostasis was obtained with electrocoagulation. The flap was advanced onto the defect. The skin edges were closed using 4.0 Monocryl dermal/subcutaneous sutures and 6.0 Prolene skin sutures. Final flap size: 5 x 3 cm2. Estimated blood loss: Minimal. Complications: None. Wound care:Routine. Follow up for suture removal in 7 days. The patient was discharged in good condition. Alexys Siegel MD PhD Mohs Micrographic Surgery and Dermatologic Oncology Department of Dermatology [address] [place] [address] Note initiated by Gretel Brush CMA. Gretel Brush CMA has performed the documentation for this encounter in the presence of and acting as a scribe for Dr. Siegel I performed the above scribed service and agree with the accuracy of the documentation in this encounter. Reviewed and signed by: Alexys Siegel [facility] Frozen Biopsy Procedure: Skin biopsy by shave technique Location: right nasal dorsum Discussed indications for procedure and expectations including risks and benefits. Verbal consent obtained. Skin prep with alcohol. Local anesthesia with 1% xylocaine, 1/100,000 epinephrine. A sample of the lesion was removed by shave technique to the level of the dermis and submitted for frozen sections and revealed basal cell carcinoma, nodular. Hemostasis obtained (AlCl and/or electrocautery). There were no complications; the pt. tolerated the procedure well. Alexys Siegel MD PhD Mohs Micrographic Surgery and Dermatologic Oncology Department of Dermatology [address] [place] [address] Mohs micrographic Surgery Operative Report Site#2: Right nasal dorsum Patient name: Checo Sanchez : 1965 Date: 02/01/2021 Staff Surgeon: Alexys Siegel MD PhD Nursing/Road Grader Operator(s): Adalgisa Santana RN, Gretel Brush CMA, Laura Senior LPN, Ava Viveros CMA, Ton Mendenhall CMA, Dilcia Smith CMA Claims Representative (s): Michelle Johnson Pre-operative diagnosis: Basal Cell Carcinoma nodular Post-operative diagnosis: Basal Cell Carcinoma nodular Location/Site:right nasal dorsum Procedure: Mohs micrographic surgery Indication(s) for Mohs micrographic surgery: Anatomic location for tissue conservation Stages: 1 Preoperative size of tumor: 0.5 x 0.4 cm Stage I The nature and purpose of the procedure, associated risks, possible consequences and complications,and alternative forms of treatment were explained in detail. We reviewed the possible repairs based on the clinical appearance of tumor but discussed that often the repair options may not be known until the tumor has hayder extirpated. Informed consent and permission to take photographs were obtained. The site was confirmed with the patient/authorized route service representative/referring physician and/or a photograph form time of biopsy. A pre-operative time-out (procedural pause) was conducted with no unresolved d iscrepancies noted. Local anesthesia was obtained with 1% lidocaine with 1:100,000 epinephrine. The surgical site was prepped and draped in the usual sterile manner. With all visible gross tumor completely excised, the borders of the tumor and 2-3 mm margins were excised as a complete layer. Hemostasis was achieved by electrocoagulation. The excised tissue was oriented and divided into 2 sections, chromacoded, and submitted for frozen sections. The patient tolerated the procedure well and without complications. On microscopic evaluation of the frozen sections, no residual tumor was identified on the deep or outer border of the sections. The final size of the defect after complete tumor removal was 0.9 x 0.8 cm, extending to level of subcutaneous tissue. Aleyxs Siegel MD PhD Mohs Micrographic Surgery and Dermatologic Oncology Department of Dermatology [address] [place] [address] Repair Report (Burow's Full-thickness skin graft) Patient name: Checo Sanchez Staff Surgeon: Alexys Siegel MD PhD Nurse Transition(s): same as above Clinical Diagnosis: skin and soft tissue defect status post Mohs micrographic surgery Location/Site: right nasal dorsum Indication: repair of wound with hinduism of anatomy/function Defect size to be repaired: 0.9 x 0.8 cm Procedure: Reji's full-thickness skin graft Final graft size: 0.9 x 0.8 cm Graft donor site: redundant tissue from the right paranasal Procedure Details: Due to the size and location of the defect resulting from the complete removal of the tumor, the postoperative risk of hemorrhage, infection, and the possibility of serious deformity from scarring, and in order to restore proper function and prevent loss of function, the defect was closed with the following graft repair. The nature and purpose of the procedure, associated risks, possible consequences, complications andalternative methods of treatment were explained to the patient in detail. An informed consent was obtained. Local anesthesia was obtained with 1-% lidocaine with 1:100,000 epinephrine. The surgical site was prepped and draped in the usual sterile manner. Procedural pause (timeout performed). First, any beveled edges of the defect were undermined with scissors. A Reji's graft was designed adjacent to the defect using tissue redundancy, and strategically to minimize tension vectors affecting free margin(s). The Burow's graft borders were incised down to the dermal subcutaneous junction and graft excised. Hemostasis was achieved with electrocoagulation. The graft donor site (redundancy) was located on the right paranasal and repaired primarily with 4.0 Monocryl subcutaneous/dermal sutures and 6.0 Prolene epidermal sutures. The full-thickness skin graft was defatted and trimmed to fit the defect and sutured into place with 6.0 Prolene sutures. After the resulting closure, there was no active bleeding from the incision site. There was minimalto no distortion to surrounding anatomic structures. The surgical site was cleaned and covered with white petrolatum and a Xeroform and gauze pressure dressing. The patient tolerated the procedure welland without complications and was given both verbal and written instructions on postoperative wound care. Follow up for suture removal in 7 days. The patient was discharged in good condition. Total local anesthesia with 1% lidocaine with 1:100,000 epinephrine used: 15 cc Total local with 0.25% bupivacaine with 1:100,000 epinephrine used: 3 cc Preoperative Medications: None Post-operative medications: Keflex 500 mg PO BID x 7 days Note initiated by BERENICE Bernardo CMA has performed the documentation for this encounter in the presence of and acting as a scribe for Dr. Cielo Lord performed the above scribed service and agree with the accuracy of the documentation in this encounter. Reviewed and signed by: Alexys Siegel [facility] Alexys Siegel MD PhD Mohs Micrographic Surgery and Dermatologic Oncology Department of Dermatology [address] [place] [address], [place] [address] documented in this encounter Plan of Treatment Upcoming Encounters Date Type Specialty Care Team Description 03/15/2022 Procedure visit Dermatology Olamide Grayson MD [facility] D[facility]Y [place], [place] [address] (Wo rk) documented as of this encounter Visit Diagnoses Diagnosis Basal cell carcinoma (BCC) of dorsum of nose Basal cell carcinoma of right side of no se Basal cell carcinoma of skin of other an d unspecified parts of face Prophylactic antibiotic Encounter for long-term (current) use of antibiotics documented in this encounter Care Teams Grated Cheese Maker Relationship Specialty Start Date End Date Jermain Montalvo DO PCP - General 01/28/[address] [place] [address] documented as of this encounter
--- OUTSIDE RECORDS SUMMARY | 2022-03-08 00:35 | XMS_ITS | Encounter Summary ---
:1965 Author Organization [facility] [place] [address] Care Team Providers Name Role Phone Jermain Montalvo DO Primary Care Provider Encounter Details Date Type Department Care Team Description 11/15/2017 Abstract Luisa Gross Conversion Apd Conversion, Flowsheet Results Provider, [place] [address] Social History Tobacco Use Types Packs/Day Years Used Date Never Smoker Sex Assigned at Date Recorded Not on file documented as of this encounter Last Filed Vital Signs Vital Sign Reading Time Taken Comments Blood Pressure - - Pulse - - Temperature - - Respiratory Rate - - Oxygen Saturation - - Inhaled Oxygen - - Concentration Weight 95.9 kg (211 lb 6.7 11/15/2017 3:45 Sourced from [facility] oz) PM EDT Conversion Height 185 cm (6' 0.84) 11/15/2017 3:45 Sourced from [facility] PD PM EDT Conversion Body Mass Index 28.02 11/15/2017 3:45 PM EDT documented in this encounter Plan of Treatment Upcoming Encounters Date Type Specialty Care Team Description 03/15/2022 Procedure visit Dermatology Olamide Grayson MD [facility] DER[facility] [place], [place] [address] (Wo rk) documented as of this encounter Visit Diagnoses Not on filedocumented in this encounter Care Teams Financial Brokers Relationship Specialty Start Date End Date Jermain Montalvo DO PCP - General 01/28/[address] [place], [place] [address] documented as of this encounter
--- OUTSIDE RECORDS SUMMARY | 2022-03-08 00:35 | XMS_ITS | Encounter Summary ---
:1965 Author Organization [facility] Address [address] [place] [address] Care Team Providers Name Role Phone Jermain Montalvo DO Primary Care Provider Reason for Visit Reason Comments Follow-up consent signing RT TKR Encounter Details Date Type Department Care Team Description 02/15/2019 Office Visit Orthopaedics at [facility] Prim ary osteoarthritis Peck Day MD of right knee 10 [address] Gross [address] [place] [address] [phone] [place] [address] Social History Tobacco Use Types Packs/Day Years Used Date Never Smoker Sex Assigned at Date Recorded Not on file documented as of this encounter Last Filed Vital Signs Vital Sign Reading Time Taken Comments Blood Pressure 128/81 02/15/2019 8:01 AM EDT Pulse 51 02/15/2019 8:01 AM EDT Temperature - - Respiratory Rate - - Oxygen Saturation 98% 02/15/2019 8:01 AM EDT Inhaled Oxygen Concentration - - Weight 95.3 kg (210 lb) 02/15/2019 8:01 AM EDT Height 185.4 cm (6' 1) 02/15/2019 8:01 AM EDT Body Mass Index 27.71 02/15/2019 8:01 AM EDT documented in this encounter Patient Instructions Patient InstructionsFany Enriquez RN - 02/15/2019 8:00 AM EDT Surgical Consent -Surgery: Right total knee replacement with a Gutierrez and Nephew component Date: 02/26/19 - Non-operative options were reviewed: activity modification, physical therapy, medication, injection, assistive devices. The patient has failed with these non- operative modalities. - The patient is significantly impacted with their worsening pain, weakness and decreased range of motion. The pain is affecting their quality of life and ability to perform ADL's. The patient would like to proceed with surgical intervention and will be prepared for surgery at [facility] on 02/26/19. - The consent was reviewed with the patient in its entirety and signed during the office visit today. - I reviewed the surgical as well as non-operative measures, and we discussed the risks of infection, blood clot, fracture, dislocation, leg length inequality, ongoing pain, nerve or blood vessel injury, reoperation and the risk of anesthesia. Pre Op Medical Clearance - The patient has been seen by their PCP and has been medically cleared to proceed with the planned procedure. Pre Op Instructions - No food or drink after midnight the night before surgery. - Hibiclens antimicrobial wash was provided to the patient today. Please wash with Hibiclens the night before surgery and the morning of surgery, paying special attention to the surgical site area. Useclean towels with each shower, put on clean clothes after each shower, and put clean sheets on the bed the night before surgery. You may use your own face wash and shampoo. Recommend avoiding use on genital region. - Confirmed that patient obtained Mupirocin from the pharmacy and reviewed instructions to apply small amount to both nostrils morning and night for 5 consecutive days the week prior to surgery. - You may continue to use NSAIDs for pain control up to the day prior to surgery. (Advil, Motrin, Aleve, ibuprofen, naproxen) - If you take multivitamins containing Vitamin K, Vitamin E, Fish Oil or herbal supplements, you should stop these medications 7 days prior to surgery. - If you take any of the following medications, please contact the office for instructions on when to stop them prior to surgery: methotrexate, Arava (leflunomide), Gold, Azulfidine (sulfasalazine), Plaquenil (hydroychloroquine), Imuran (azathioprine), cyclosporine, Cytoxan (cyclophosphamide), Cuprimine (penicillamine), Enbrel (etanercept ), Humira (adalimumab), Remicade (infliximab), Kineret (anakinra), Rituxan (rituximab). - Items to bead picker and have at home for use after surgery: Prune juice, bottle of Aspirin 81mg tabs,Colace (docusate sodium) 100mg capsules, Miralax powder (polyethylene glycol), Bottle of Extra Strength Tylenol (acetaminophen) 500mg tabs. Sleep Apnea: - Have you ever been diagnosed with sleep apnea? no - If you have a CPAP (continuous positive airway pressure) machine, please bring it with you on the day of surgery. Pre Admission Testing (PAT) - The PAT office will send you a letter in the mail with a phone number and a time to call in. During that call they will give you a 'tentative' arrival time for surgery. Your 'actual' arrival time will be confirmed the day before surgery by a phone call from the Pre-op staff. If you have not receivedyour letter within a week of your surgery, you can reach the nurses in the PAT office at . DVT Prevention - Have you ever had a clot in your leg (Deep Vein Thrombosis or DVT) or a clot in your lung (Pulmonary Embolism or PE)? no - Have any of your family members ever had a DVT or PE? no - Have you had a personal history of cancer in the last two years? no - Do you have a clotting or bleeding disorder? no - Do you take any blood thinning medications such as Coumadin (warfarin), Plavix (clopidogrel) or Xarelto (rivaraoxaban)? no - The patient has no risk factors for thromboembolic disease, in other words no previous DVT (a clotin your leg) or PE (a clot in your lung), no cancer history in the last 2 years, no family history of DVT, PE or clotting disorder and consequently we will use aspirin 81 mg by mouth twice a day for 4 weeks after surgery for clot prevention. Post Op Instructions -Pain medication will be prescribed upon discharge from the hospital -Narcotic pain medications can cause constipation. We recommend taking over the counter Colace (docusate) 100mg by mouth twice daily while taking the pain medication. - After surgery, you can also use Tylenol (acetaminophen) for pain. Extra Strength Tylenol 500mg tablets. Take 2 tablets, 3 times a day. DO NOT EXCEED 3000mg in a 24 hour period. Anesthesia and code status - Anesthesia: Spinal and Sedation Code Status: Full code. Rehabilitation and Post Op Instructions - Rehabilitation: He plans to go home after surgery with VNA for Physical Therapy. - Expected Length of Stay in hospital:1-2 days - Support at home after surgery: Mother/Friend - Best phone number to reach you at after surgery: [phone] - You may shower the day after surgery. No baths, pools , hot tubs or submerging the incision for 1 month post-op or until the wound is completely healed. - Disposition: A post-operative follow-up appointment has already been scheduled. Please plan to arrive early for check-in and x-rays. - No driving for 4 weeks after surgery. - Dressing can be removed 5 days after surgery. You will be given another dressing to apply once thefirst is removed. Remove 5 days after applying. - Ice is recommended for 20 minutes of every hour. - Bruising, swelling and pain are to be expected during the post-operative recovery period and should resolve over time. Please keep in mind that the initial recovery period is four weeks and total recovery is one year. - Some numbness, burning or stinging can be a normal part of healing after surgery. - Lifting restriction of 10lbs for post-operative month 1, then lifting restriction of 25 lbs for post-op months 2 and 3. Avoid high impact exercises. Avoid twisting motions. Do not pivot on your operative leg. Returning to high impact/endurance activities should be to tolerance after post-op month 3. Additional Instructions - No dental procedures for 1 month PRIOR to surgeryand 6 months AFTER surgery. Please call us for antibiotics prior to any dental work. - Bring your walker with you on the day of surgery. Physical therapy will adjust the height for you and assist with proper use. - Post-op follow-up visits are scheduled at 1 month, 3 months, 1 year, 5 year, 10 years. You will have x-rays at all of these visits with the exception of the 3 month visit. - If you have any questions, please call us at . You can ask to speak with any of our Registered Nurses. - Patient was provided with the Opioid Factsheet, material reviewed and patient verbalized understanding documented in this encounter Progress Notes Fany Enriquez RN - 02/15/2019 8:00 AM EDT Surgical Consent -Surgery: Right total knee replacement with a Gutierrez and Nephew component Date: 02/26/19 - Non-operative options were reviewed: activity modification, physical therapy, medication, injection, assistive devices. The patient has failed with these non- operative modalities. - The patient is significantly impacted with their worsening pain, weakness and decreased range of motion. The pain is affecting their quality of life and ability to perform ADL's. The patient would like to proceed with surgical intervention and will be prepared for surgery at [facility] on 02/26/19. - The consent was reviewed with the patient in its entirety and signed during the office visit today. - I reviewed the surgical as well as non-operative measures, and we discussed the risks of infection, blood clot, fracture, dislocation, leg length inequality, ongoing pain, nerve or blood vessel injury, reoperation and the risk of anesthesia. Pre Op Medical Clearance - The patient has been seen by their PCP and has been medically cleared to proceed with the planned procedure. Pre Op Instructions - No food or drink after midnight the night before surgery. - Hibiclens antimicrobial wash was provided to the patient today. Please wash with Hibiclens the night before surgery and the morning of surgery, paying special attention to the surgical site area. Useclean towels with each shower, put on clean clothes after each shower, and put clean sheets on the bed the night before surgery. You may use your own face wash and shampoo. Recommend avoiding use on genital region. - Confirmed that patient obtained Mupirocin from the pharmacy and reviewed instructions to apply small amount to both nostrils morning and night for 5 consecutive days the week prior to surgery. - You may continue to use NSAIDs for pain control up to the day prior to surgery. (Advil, Motrin, Aleve, ibuprofen, naproxen) - If you take multivitamins containing Vitamin K, Vitamin E, Fish Oil or herbal supplements, you should stop these medications 7 days prior to surgery. - If you take any of the following medications, please contact the office for instructions on when to stop them prior to surgery: methotrexate, Arava (leflunomide), Gold, Azulfidine (sulfasalazine), Plaquenil (hydroychloroquine), Imuran (azathioprine), cyclosporine, Cytoxan (cyclophosphamide), Cuprimine (penicillamine), Enbrel (etanercept ), Humira (adalimumab), Remicade (infliximab), Kineret (anakinra), Rituxan (rituximab). - Items to bead picker and have at home for use after surgery: Prune juice, bottle of Aspirin 81mg tabs,Colace (docusate sodium) 100mg capsules, Miralax powder (polyethylene glycol), Bottle of Extra Strength Tylenol (acetaminophen) 500mg tabs. Sleep Apnea: - Have you ever been diagnosed with sleep apnea? no - If you have a CPAP (continuous positive airway pressure) machine, please bring it with you on the day of surgery. Pre Admission Testing (PAT) - The PAT office will send you a letter in the mail with a phone number and a time to call in. During that call they will give you a 'tentative' arrival time for surgery. Your 'actual' arrival time will be confirmed the day before surgery by a phone call from the Pre-op staff. If you have not receivedyour letter within a week of your surgery, you can reach the nurses in the PAT office at . DVT Prevention - Have you ever had a clot in your leg (Deep Vein Thrombosis or DVT) or a clot in your lung (Pulmonary Embolism or PE)? no - Have any of your family members ever had a DVT or PE? no - Have you had a personal history of cancer in the last two years? no - Do you have a clotting or bleeding disorder? no - Do you take any blood thinning medications such as Coumadin (warfarin), Plavix (clopidogrel) or Xarelto (rivaraoxaban)? no - The patient has no risk factors for thromboembolic disease, in other words no previous DVT (a clotin your leg) or PE (a clot in your lung), no cancer history in the last 2 years, no family history of DVT, PE or clotting disorder and consequently we will use aspirin 81 mg by mouth twice a day for 4 weeks after surgery for clot prevention. Post Op Instructions -Pain medication will be prescribed upon discharge from the hospital -Narcotic pain medications can cause constipation. We recommend taking over the counter Colace (docusate) 100mg by mouth twice daily while taking the pain medication. - After surgery, you can also use Tylenol (acetaminophen) for pain. Extra Strength Tylenol 500mg tablets. Take 2 tablets, 3 times a day. DO NOT EXCEED 3000mg in a 24 hour period. Anesthesia and code status - Anesthesia: Spinal and Sedation Code Status: Full code. Rehabilitation and Post Op Instructions - Rehabilitation: He plans to go home after surgery with [facility]NA for Physical Therapy. - Expected Length of Stay in hospital:1-2 days - Support at home after surgery: Mother/Friend - Best phone number to reach you at after surgery: [phone] - You may shower the day after surgery. No baths, pools , hot tubs or submerging the incision for 1 month post-op or until the wound is completely healed. - Disposition: A post-operative follow-up appointment has already been scheduled. Please plan to arrive early for check-in and x-rays. - No driving for 4 weeks after surgery. - Dressing can be removed 5 days after surgery. You will be given another dressing to apply once thefirst is removed. Remove 5 days after applying. - Ice is recommended for 20 minutes of every hour. - Bruising, swelling and pain are to be expected during the post-operative recovery period and should resolve over time. Please keep in mind that the initial recovery period is four weeks and total recovery is one year. - Some numbness, burning or stinging can be a normal part of healing after surgery. - Lifting restriction of 10lbs for post-operative month 1, then lifting restriction of 25 lbs for post-op months 2 and 3. Avoid high impact exercises. Avoid twisting motions. Do not pivot on your operative leg. Returning to high impact/endurance activities should be to tolerance after post-op month 3. Additional Instructions - No dental procedures for 1 month PRIOR to surgeryand 6 months AFTER surgery. Please call us for antibiotics prior to any dental work. - Bring your walker with you on the day of surgery. Physical therapy will adjust the height for you and assist with proper use. - Post-op follow-up visits are scheduled at 1 month, 3 months, 1 year, 5 year, 10 years. You will have x-rays at all of these visits with the exception of the 3 month visit. - If you have any questions, please call us at . You can ask to speak with any of our Registered Nurses. - Patient was provided with the Opioid Factsheet, material reviewed and patient verbalized understanding Iqra Alexander LNA - 02/15/2019 8:00 AM EDT REVIEW OF SYMPTOMS: Constitutional: Denies fever, chills, fatigue Cardiovascular: Denies chest pain Respiratory: Denies shortness of breath Gastrointestinal: Denies nausea, vomiting, diarrhea, constipation or abdominal pain Neurovascular: Denies numbness or tingling Musculoskeletal: Admits pain in the right knee depending on activity Psychiatric: Mood and affect appropriate Laura Kemp Maeve - 02/15/2019 8:00 AM EDT REVIEW OF SYMPTOMS: Constitutional: Denies fever, chills, fatigue Cardiovascular: Denies chest pain Respiratory: Denies shortness of breath Gastrointestinal: Denies nausea, vomiting, diarrhea, constipation or abdominal pain Neurovascular: Denies numbness or tingling Musculoskeletal: Admits pain in the right knee depending on activity Psychiatric: Mood and affect appropriate PHYSICAL EXAM: Constitutional : alert, in no acute distress, well-developed, well-nourished, well-groomed, body habitus normal Head/Face : Atraumatic, normocephalic Gait/Station: Normal Gait, Station normal . General: alert and oriented. He appears in no acute discomfort and is resting comfortably in a chair in the exam room. Lumbar/Pelvis: Full ROM of lumbar spine in all planes, no point tenderness, no SI joint tenderness Right lower extremity : Hip: Inspection/Plan: no tenderness to palpation, no greater trochanteric tenderness, no effusion, no warmth, no swelling. Range of Motion: Full and painless ROM Strength: 5/5 Stability: normal Test/Signs Thigh: no tenderness, no ecchymosis, no swelling Knee : Flexion 0-129 Lower leg: No tenderness to palpation, no swelling, no ecchymosis, stable ligaments, mid flexion ACL looseness Left lower extremity : Hip: Inspection/Plan: no tenderness to palpation, no greater trochanteric tenderness, no effusion, no warmth, no swelling Range of Motion: Full and painless ROM Strength: 5/5 Stability: normal Test/Signs Thigh: no tenderness, no ecchymosis, no swelling Knee : Flexion 0-128 Lower leg: No tenderness to palpation, no swelling, no ecchymosis Muscle tone: tone normal Leg Length Discrepancy: No Skin: no erythema present, no ecchymosis present, no signs of skin lesions or infection Sensation: : normal sensation, neurovascularly intact Mental status Examination: grossly oriented to person, place and time Mood and Affect: mood normal, affect appropriate Imaging Results: Impression/Plan: Right knee pain I Laura Kemp am acting as scribe for Mesfin Leach MD. All work documented was performed by Mesfin Leach MD. I, Mesfin Leach MD personally performed the services described in this documentation, as scribed by Laura Kemp is both accurate and complete. documented in this encounter Plan of Treatment Upcoming Encounters Date Type Specialty Care Team Description 03/15/2022 Procedure visit Dermatology Olamide Grayson MD [facility] [address] [place], [place] [address] (Wo rk) documented as of this encounter Visit Diagnoses Diagnosis Primary osteoarthritis of right knee Primary localized osteoarthrosis, lower leg documented in this encounter Care Teams Solderer Assembly Repair Relationship Specialty Start Date End Date Jermain Montalvo DO PCP - General 01/28/13 [facility] [address] [place] [address] documented as of this encounter
--- OUTSIDE RECORDS SUMMARY | 2022-03-08 00:35 | XMS_ITS | Encounter Summary ---
:1965 Author Organization [facility] [place] [address] Care Team Providers Name Role Phone Jermain Montalvo DO Primary Care Provider Reason for Visit Reason Comments Follow Up Surgery right total knee Encounter Details Date Type Department Care Team Description 03/29/2019 Office Visit Orthopaedics at [facility]ry Harper tatus post total Charlton Day ROBERTH Castellon right knee 10 Luisa [address] Day 10 [address] [place] [address] [facility] on 02/26/19 [place] [id number] (Wo rk) Social History Tobacco Use Types Packs/Day Years Used Date Never Smoker Smokeless Tobacco: Never Used Alcohol Use Standard Drinks/Week Comments Not Currently 0 (1 standard drink = 0.6 oz pure alcoho l) Sex Assigned at Date Recorded Not on file documented as of this encounter Progress Notes Ary Alexander PA - 03/29/2019 2:00 PM EDT Date of Surgery: 02/26/2019 Procedure: Right total knee arthroplasty Checo Sanchez is a 53 y.o. male presents today for a first postoperative visit after undergoing a total knee arthroplasty with Dr. Leach. He is currently full weightbearing without an assistive device. Pain: Minimal pain at this time Current pain medications: Tylenol, Meloxicam, Dilaudid once every several days. DVT Prophylaxis: ASA 81mg BID Physical Therapy: Outpatient twice weekly PHYSICAL EXAM: Well-appearing male in NAD. A&O x 3 and answers all questions appropriately. Easily gets up from a seated position. Normal gait. Mild generalized tenderness. Mild residual soft tissue swelling present. No effusion. No erythema, warmth or ecchymosis. Incision is well healed without erythema or drainage. Knee ROM: 130 degrees flexion, 6 degrees extension Strength: 5/5 knee flexion and extension Negative Madeline's. No varus or valgus instability. Motor and sensory function are intact in the superficial peroneal, deep peroneal, and tibial nerve distributions. Calves are soft and nontender. Negative Allyson's. X-RAYS: Weightbearing PA, lateral and sunrise views were obtained and demonstrate a stable well seated total knee arthroplasty in good alignment with no evidence of loosening or periprosthetic fracture ASSESSMENT: 4 weeks s/p Right total knee arthroplasty with Dr. Leach. PLAN: Continue weightbearing as tolerated Slowly and gradually increase activity to tolerance Continue use of ice, elevation and compression as needed for swelling Continue working on range of motion including stretching, strengthening, heat before exercise, patellar mobilization and scar massage with Vitamin E oil Stop DVT prophylaxis at 4 weeks post op Continue with outpatient PT. 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 Patient is permitted to drive at 4 weeks postoperatively if He is not taking any medications that can cause drowsiness including Dilaudid, Oxycodone, Tramadol, Flexeril, etc We discussed the appropriate precautions surrounding dental prophylaxis. The patient should avoid elective dental procedures for the first 6 months after surgery. After 6 months, antibiotics will not be required for routine dental cleanings. Patient advised to call our office before any more invasive dental work to determine if a prophylactic antibiotic is warranted. Katie Batres LNA - 03/29/2019 2:00 PM EDT REVIEW OF SYMPTOMS: Constitutional: Denies fever, chills, fatigue Cardiovascular: Denies chest pain Respiratory: Denies shortness of breath Gastrointestinal: Denies nausea, vomiting, diarrhea, constipation or abdominal pain Neurovascular: Admits numbness Musculoskeletal: Admits limitation of range of motion Psychiatric: Mood and affect appropriate documented in this encounter Plan of Treatment Upcoming Encounters Date Type Specialty Care Team Description 03/15/2022 Procedure visit Dermatology Olamide Grayson MD [facility] [address] [place], [place] [address] (Wo rk) documented as of this encounter Visit Diagnoses Diagnosis Status post total right knee replacement with Dr. Leach on 02/26/19 documented in this encounter Care Teams Silk Spreader Relationship Specialty Start Date End Date Jermain Montalvo DO PCP - General 01/28/[address] [place] [address] documented as of this encounter
--- OUTSIDE RECORDS SUMMARY | 2022-03-08 00:35 | XMS_ITS | Encounter Summary ---
:1965 Author Organization [facility] [place] [address] Care Team Providers Name Role Phone Jermain Montalvo DO Primary Care Provider Encounter Details Date Type Department Care Team Description 06/20/2018 Abstract Luisa Gross Conversion Apd Conversion, Flowsheet Results Provider, [place] [address] Social History Tobacco Use Types Packs/Day Years Used Date Never Smoker Sex Assigned at Date Recorded Not on file documented as of this encounter Last Filed Vital Signs Vital Sign Reading Time Taken Comments Blood Pressure - - Pulse - - Temperature - - Respiratory Rate - - Oxygen Saturation - - Inhaled Oxygen - - Concentration Weight 95.8 kg (211 lb 3.2 06/20/2018 3:30 Sourced from [facility] oz) PM EDT Conversion Height 185 cm (6' 0.84) 06/20/2018 3:30 Sourced from [facility] PM EDT Conversion Body Mass Index 27.99 06/20/2018 3:30 PM EDT documented in this encounter Plan of Treatment Upcoming Encounters Date Type Specialty Care Team Description 03/15/2022 Procedure visit Dermatology Olamide Grayson MD [facility] ER DERMATOLOGY [place], [place] [address] (Wo rk) documented as of this encounter Visit Diagnoses Not on filedocumented in this encounter Care Teams Product Tester [employer]erg[employer] Relationship Specialty Start Date End Date Jermain Montalvo DO PCP - General 01/28/[address] [place], [place] [address] documented as of this encounter
--- OUTSIDE RECORDS SUMMARY | 2022-03-08 00:35 | XMS_ITS | Encounter Summary ---
:1965 Author Organization [facility] Address [address] [place] [address] Care Team Providers Name Role Phone Jermain Montalvo DO Primary Care Provider Reason for Visit Reason Comments Follow Up Surgery RIGHT TKR - 02/26/2019 Encounter Details Date Type Department Care Team Description 06/12/2019 Office Visit Orthopaedics at [facility] post total right knee replacement with Dr. Leach on 02/26/19; ROBERTH Chaudhari Aftercare following surgery of the [facility] [address] [place], [place] [address] [id number] [place], [place] [id number] Social History Tobacco Use Types Packs/Day Years Used Date Never Smoker Smokeless Tobacco: Never Used Alcohol Use Standard Drinks/Week Comments Not Currently 0 (1 standard drink = 0.6 oz pure alcoho l) Sex Assigned at Date Recorded Not on file documented as of this encounter Last Filed Vital Signs Vital Sign Reading Time Taken Comments Blood Pressure 143/89 06/12/2019 3:42 PM EDT Pulse 76 06/12/2019 3:42 PM EDT Temperature - - Respiratory Rate - - Oxygen Saturation 97% 06/12/2019 3:42 PM EDT Inhaled Oxygen Concentration - - Weight 95.3 kg (210 lb) 06/12/2019 3:42 PM EDT Height 185.4 cm (6' 1) 06/12/2019 3:42 PM EDT Body Mass Index 27.71 06/12/2019 3:42 PM EDT documented in this encounter Patient Instructions Patient InstructionsThierno Do PA - 06/12/2019 3:30 PM EDT ASSESSMENT: 3 months s/p Right total knee arthroplasty with Dr. Leach. PLAN: Continue working on your home physical therapy exercises focusing on lower extremity strengthening, gait, balance, proprioception and return to functional activities. Recommended that the patient progress activities to tolerance. Use of an assistive device for safety with ambulation until strength and balance improve. Antibiotic prophylaxis reviewed. We recommend that the patient please wait until they are 6 months postoperative to undergo any routine dental cleaning. After this period recommend the patient will call the clinic to determine if antibiotic prophylaxis prior to any dental care is necessary. Discussed with patient indications for prompt return or to call the clinic if they have any questions, otherwise they will follow-up in 9 months with repeat images and with their PCP as scheduled. documented in this encounter Progress Notes Thierno Do PA - 06/12/2019 3:30 PM EDT Date of Surgery: 02/26/2019 Procedure: Right total knee arthroplasty Checo Sanchez is a 54 y.o. male presents today for a second postoperative visit after undergoing a total knee arthroplasty with Dr. Leach. He has been back at school for 5-6 weeks. He continues to go to PT and will go up until the end of the year. He is happy with his progress thus far. Only discomfort is when he is going upstairs. He is currently full weightbearing without an assistive device. Pain: Minimal pain at this time Current pain medications: Tylenol DVT Prophylaxis: ASA 81mg BID Physical Therapy: Outpatient twice weekly PHYSICAL EXAM: Well-appearing male in NAD. A&O x 3 and answers all questions appropriately. Easily gets up from a seated position. Normal gait. Mild generalized tenderness. Mild residual soft tissue swelling present. No effusion. No erythema, warmth or ecchymosis. Incision is well healed without erythema or drainage. Knee ROM: 134 degrees flexion, 6 degrees extension Strength: 5/5 knee flexion and extension Negative Madeline's. No varus or valgus instability. Motor and sensory function are intact in the superficial peroneal, deep peroneal, and tibial nerve distributions. Calves are soft and nontender. Negative Allyson's. X-RAYS: Weightbearing PA, lateral and sunrise views were obtained on and demonstrated a stable well seated total knee arthroplasty in good alignment with no evidence of loosening or periprosthetic fracture ASSESSMENT: 3 months s/p Right total knee arthroplasty with Dr. Leach. PLAN: Continue working on your home physical therapy exercises focusing on lower extremity strengthening, gait, balance, proprioception and return to functional activities. Recommended that the patient progress activities to tolerance. Use of an assistive device for safety with ambulation until strength and balance improve. Antibiotic prophylaxis reviewed. We recommend that the patient please wait until they are 6 months postoperative to undergo any routine dental cleaning. After this period recommend the patient will call the clinic to determine if antibiotic prophylaxis prior to any dental care is necessary. Discussed with patient indications for prompt return or to call the clinic if they have any questions, otherwise they will follow-up in 9 months with repeat images and with their PCP as scheduled. documented in this encounter Plan of Treatment Upcoming Encounters Date Type Specialty Care Team Description 03/15/2022 Procedure visit Dermatology Olamide Grayson MD [facility] [address] [address] (Wo rk) documented as of this encounter Visit Diagnoses Diagnosis Status post total right knee replacement with Dr. Leach on 02/26/19 Aftercare following surgery of the [facility] Aftercare [facility] documented in this encounter Care Teams [employer] Interpreter Relationship Specialty Start Date End Date Jermain Montalvo DO PCP - General 01/28/[address] [place] [address] documented as of this encounter
--- OUTSIDE RECORDS SUMMARY | 2022-03-08 00:35 | XMS_ITS | Encounter Summary ---
:1965 Author Organization [facility] [place] [address] Care Team Providers Name Role Phone Jermain Montalvo DO Primary Care Provider Encounter Details Date Type Department Care Team Description 11/15/2017 Orders Only Radiology and Cardiology Apd Conversion, Results Results Provider, [address] [place] [phone] Social History Tobacco Use Types Packs/Day Years Used Date Never Smoker Sex Assigned at Date Recorded Not on file documented as of this encounter Plan of Treatment Upcoming Encounters Date Type Specialty Care Team Description 03/15/2022 Procedure visit Dermatology Olamide Grayson MD [facility] ER DERMATOLOGY [place], [place] [address] (Wo rk) documented as of this encounter Procedures Procedure Name Priority Date/Time Associated Diagnosis Comme nts TYPE AND SCREEN Routine 11/15/2017 Results for this ([facility] procedure a re in the results section . documented in this encounter Results (ABNORMAL) Type and screen (LEB/CGP) (11/15/2017) [facility] gist Method Time Signature AB Screen NEGATIVE NEGATIVE [facility] Interp (External CONVERSION Lab) Rh POSITIVE [facility] (External CONVERSION Lab) ABO Grouping B (External ABO [facility] Lab) CONVERSION Specimen (Source) Anatomical Location Collection Method / Collectio n Time Received Time / Laterality Volume 11/15/2017 Results Provider Apd Conversion BLOOD BANK ORDERABL ES Performing Organization Address City/State/ZIP Code Phon e Number [facility] CONVERSION [address] [place], [place] [address] [facility] CONVERSION documented in this encounter Visit Diagnoses Not on filedocumented in this encounter Care Teams Conservation Planner Relationship Specialty Start Date End Date Jermain Montalvo DO PCP - General 01/28/[address] [place] [address] documented as of this encounter
--- OUTSIDE RECORDS SUMMARY | 2022-03-08 00:35 | XMS_ITS | Encounter Summary ---
:1965 Author Organization [facility] [place] [address] Care Team Providers Name Role Phone Jermain Montalvo DO Primary Care Provider Reason for Visit Auth/Cert Specialty Diagnoses / Procedures Referred By Contact Refer red To Contact Diagnoses Unilateral primary osteoarthritis, right knee OA/DJD Procedures PRO TOTAL KNEE ARTHROPLASTY TOTAL KNEE ARTHROPLASTY (WRVU 20.72) [facility] Referral ID Status Reason Start Date Expiration Date Visits Requ ested Visits Authorized [id number] 1 1 Encounter Details Date Type Department Care Team Description 02/26/2019 Surgery Operating Room Mesfin García MD TOTAL KNEE ARTHROPLASTY [facility] [address] ([facility]VU 20.72) [address] [place] [address] [place] [address] [phone] Social History Tobacco Use Types Packs/Day Years Used Date Never Smoker Smokeless Tobacco: Never Used Alcohol Use Standard Drinks/Week Comments Not Currently 0 (1 standard drink = 0.6 oz pure alcoho l) Sex Assigned at Date Recorded Not on file documented as of this encounter Last Filed Vital Signs Vital Sign Reading Time Taken Comments Blood Pressure 132/78 02/26/2019 1:52 PM EDT Pulse 55 02/26/2019 1:52 PM EDT Temperature 36.5 ??C (97.7 ??F) 02/26/2019 12:42 PM EDT Respiratory Rate 14 02/26/2019 1:52 PM EDT Oxygen Saturation 97% 02/26/2019 1:52 PM EDT Inhaled Oxygen Concentration - - Weight 93 kg (205 lb) 02/26/2019 12:42 PM EDT Height 185.4 cm (6' 1) 02/26/2019 12:42 PM EDT Body Mass Index 27.05 02/26/2019 12:42 PM EDT documented in this encounter Discharge Summaries Thierno Do PA - 02/28/2019 8:31 AM EDT Luisa [facility] Discharge Summary Admit date: 02/26/2019 Expected D/C date and time: 02/28/19 Attending Physician: Mesfin Leach MD Discharge Physician: ROBERTH Milligan Discharge disposition: Home without services Discharge Diagnoses (Hospital Problems) Active Hospital Problems Status post total right knee replacement with Dr. Leach on 02/26/19 Resolved Hospital Problems No resolved problems to display. Active Non-Hospital Problems Diagnosis ??? Knee pain ??? Hyperlipidemia ??? Hiatal hernia ??? Conductive hearing loss ??? Bradycardia ??? Basal cell carcinoma of skin ??? Actinic keratosis ??? Abnormal sexual function ??? Osteoarthrosis Follow-up Recommendations for Providers: Follow-up with PCP as scheduled Pending Studies and Lab Data: N/A Hospital course: The patient was admitted electively from the same day surgery area, and underwent total replacement of the right knee using a spinal and sedation anesthetic. The postoperative course followed the postoperative pathway for lower extremity total joint replacement. A multimodal analgesia protocol was used, with intraoperative injection of bupivacaine and additives into the tissues surrounding the operated joint. The patient received a total of 24 hours of perioperative intravenous antibiotics. A referral to physical therapy was ordered, and the goals for safe discharge were reinforced including safe am bulation with an assistive device, stair climbing, and exercises specific to the muscle groups around the replaced joint. An occupational therapy referral was also entered, and goals for safe dischargeincluded functional mobility and training in activities of daily living including toileting, dressing, and self-care. On postoperative day #1 the bandages were removed and changed. The surgical incision was clean, dry,well approximated and dressed with Steri-Strips. A Mepilex dressing was applied over the surgical incision without complication. Notable medical or safety events related to the hospitalization include the following:none. Significant Procedures, Labs and Imaging Tests: Operations: Procedure(s): TOTAL KNEE ARTHROPLASTY (WRVU 20.72) [facility] 02/26/2019 Other Major Procedures: none Labs: Last 3 wbc, hgb, hct plt Recent Labs 02/28/19 0628 02/27/19 0612/05/18 1200 WBC 9.5 11.2* 5.5* HGB 13.1* 13.2* 14.5* HCT 37.1* 37.0* 41.3* PLATELET 185 195 215* Last 3 Lytes Recent Labs 02/28/1962702/27/1960512/05/18 1200 NA 139 139 141* K 4.6 4.6 4.5* CL 102 105 103* CO2 25 24 28* BUN 23* 16 24* CREATININE 0.90 0.93 1.02* Discharge Medications/Significant Medication Changes: Your Medications New Medications Dose Details acetaminophen 500 mg Tab Commonly known as: TYLENOL Take 1 tablet by mouth every 4 hours. 500 mg Quantity: 30 tablet Refills: 1 aspirin 81 mg Tbec Take 1 tablet by mouth 2 times daily. 81 mg Quantity: 30 tablet Refills: 3 HYDROmorphone 2 mg Tab Commonly known as: DILAUDID Take 1 tablet by mouth every 4 hours as needed for Pain. 2 mg Quantity: 40 tablet Refills: 0 polyethylene glycol 17 gram Pwpk Commonly known as: MIRALAX Take 17 g by mouth daily as needed. 17 g Quantity: 14 each Refills: 0 senna-docusate 8.6-50 mg Tab Commonly known as: PERICOLACE Take 1 tablet by mouth 2 times daily. 1 tablet Quantity: 60 tablet Refills: 11 Continued medications with new dosing Dose Details gabapentin 300 mg Cap Commonly known as: NEURONTIN Take 1 capsule by mouth nightly. Attempt to wean off as tolerated What changed: ?? how much to take ?? how to take this ?? when to take this ?? additional instructions 300 mg Quantity: 35 capsule Refills: 0 Continued medications, unchanged Dose Details gemfibrozil 600 mg Tab Commonly known as: LOPID Take 600 mg by mouth 2 times daily (before meals). 600 mg Refills: 0 meloxicam 15 mg Tab Commonly known as: MOBIC Take 1 tablet by mouth daily. 15 mg Quantity: 30 tablet Refills: 12 multivitamin Tab Commonly known as: THERAGRAN Take by mouth. Refills: 0 omeprazole 20 mg Cpdr Commonly known as: PriLOSEC Take 40 mg by mouth daily. Indications: TAKING EVERY OTHER DAY WILL BE DUE ON THE February 40 mg Refills: 0 [place] 500-1,000 mg Cap Take by mouth. Refills: 0 STOPPED Medications mupirocin 2 % Oint Commonly known as: BACTROBAN The patient???s preoperative medications were resumed after surgery, see above. Aspirin 81 mg was ordered as chemical thromboprophylaxis to prevent deep venous thrombosis. The patient was instructed tocontinue on this regimen for a total of 4 weeks and to avoid for 4 weeks any vitamins (E and K), herbal or dietary supplements that may affect blood clotting. The patient was specifically told to contact the clinic in cases of visible bleeding, swelling that was painful to manual compression, or extreme cases of swelling. In addition, the following medications were prescribed by the orthopaedic team and prescriptions (when necessary) were provided: - Dilaudid 2 mg 1-2 tabs every 4 hours PRN Pain, Meloxicam 15 mg once daily and Gabapentin 300 mg once nightly and begin to wean - Aspirin 81 mg A full summary of discharge medications was completed by the discharging provider, and reviewed by the nursing staff with the patient before leaving the hospital. Allergies: Allergies Allergen Reactions ??? Ranitidine Hcl Other reaction(s): swelling and soreness ASSESSMENT AND PLAN: At the time of discharge, the patient was medically stable, meeting PT and OT goals, had good pain control, no active nausea, and satisfactory bladder and bowel function. They weredischarged with out-patient Physical therapy referral starting next week, at their request. The following unique medical or postsurgical issues were identified at the time of discharge, and the following plans of care were reviewed: The patient did not tolerate gabapentin and will lower his dose to 300 mg nightly and taper off to tolerance. Discharge Condition: At the time of discharge patient's vitals were as noted below. Patient Vitals for the past 8 hrs: BP Temp Temp src Pulse Resp SpO2 02/28/19 0412 130/76 36.4 ??C (97.5 ??F) Temporal 63 18 96 % Patient Instructions: ACTIVITY: The patient was counseled about gradually resuming activity after joint replacement. Specific limitations were discussed regarding physical activity (no strenuous activity until 3 months after surgery), lifting (no more than 10 lbs for first month, 20 lbs maximum for months 2 and 3, then no formal limit), and the use of assistive devices. The importance of muscle strengthening around the joint was emphasized. Range of motion exercises were taught to the patient and reviewed before discharge, with instructions to continue doing those exercises at home. The patient was told to contact orthopedic clinic at any time with questions, and was specifically counseled on signs and symptoms of infec tion, blood clot, or the types of cardiopulmonary symptoms that should prompt immediate or urgent attention. In addition, the patient was asked to not submerge their incision in water for the first 4 weeks after the operation, even though contact with water such as in a shower is normal and permissible. First follow-up clinic visit will take place 4 weeks after the date of surgery approximately. New radiographs will be obtained of the operated joint during the course of his post-operative follow-up. Patient was counseled specifically about opioid narcotics, the fact that they should be used in conjunction with nonnarcotic pain medication, the fact that their dosage and frequency should be tapered gradually as symptoms allow. General Instructions Precautions: ??? Try not to bend, lift, twist, or carry heavy objects. No lifting greater than 10lbs for one month after surgery. ??? Do not turn your feet excessively inward or outward. ??? Use of a shower seat is recommended to prevent a fall. ??? Use a walker, crutches, or cane. As your strength and stability improve you may begin to decrease use of an assistive walking device. ??? It is recommended you follow the above precautions for 3 months after surgery. ??? Use of narcotic pain medications and muscle relaxants can have a sedating effect; please use caution as this may increase your risk of a fall. Restrictions: ??? Do not drive a car. The ability to drive will be decided by your physician, physician preschool teacher's assistant and physical therapist. ??? To be able to return to driving the following is recommended: o No longer taking pain medications. o Having the leg strength to press hard on the car brakes. o Clearance is usually between 4-6 weeks after surgery. ??? Do not return to work until cleared by your physician or physician preschool teacher's assistant. o You may need to return to modified duty initially. ??? No routine dental work or dental cleaning until 6 months after joint replacement surgery. Pleasecall if you have a dental emergency and it will determined if you need a prophylactic antibiotic to prevent a joint infection. o Please call the orthopaedic if you have any questions. Home Care Instructions: ??? Good personal hygiene and hand washing is recommended at home as they are critical to preventingillness and infection. If soap and water are unavailable, you can use an alcohol-based hand emergency response officer to clean your hands. ??? A Mepilex dressing was applied to your incision site. This dressing should stay on for 5 days. After 5 days the dressing can be removed. INCISION INSTRUCTIONS: Dressing change 5 days from application of Mepilex dressing post-op, trim distal incision suture tail to skin level after 14 days post-op ??? You may shower (no bathing), with a Mepilex dressing covering your incision site. Pat the incision/dressing dry with a clean, dry towel. ??? Once the Mepilex dressing is removed you often do not need additional dressings to cover your incision unless otherwise instructed by your physician, physician preschool teacher's assistant, or nurse. ??? Steri-strips have been applied to your incision and should fall off on their own. If they have not fallen off they can be gently removed 21 days after your surgery. ??? Do not apply ointments, lotions, or creams to your incision site. ??? Once your incision is completely healed, you may use Vitamin E and Aloe on the incision to lessen and soften the scar, please obtain clearance from Orthopedics prior to doing so. Diet: ??? Continue your usual diet. Fresh fruits, vegetables, and foods containing fiber and iron are recommended. ??? Drink plenty of fluids especially water. Comfort: ??? Surgical incision soreness can be expected. ??? Frequent use of ice is recommended. ??? Take pain medications as prescribed. Lessen the use of pain medication as your pain decreases. ??? You may take Tylenol (Acetaminophen) for mild to moderate pain. Please avoid use if you have an allergy or sensitivity to Tylenol. o Tylenol 650 mg may be taken every 6-8 hours or Tylenol 500 mg may be taken every 4 hours. Do not take more than 3000 mg of Tylenol in a 24 hour period of time. o Avoid use of Ibuprofen, Naproxen or other NSAIDs in the first four weeks following surgery and while taking an anti-coagulant medication, unless otherwise directed by your physician or physician preschool teacher's assistant. ??? Celebrex is a non-steroidal anti-inflammatory (NSAID) that may be prescribed for you to take after surgery. Do not take additional NSAIDs such as Ibuprofen or Naproxen at the same time. ??? Your throat may be sore for the first 2-3 days following surgery; throat lozenges may be helpful. ??? Pain medications can cause you to become constipated. You will need to have a bowel movement before discharge to home and then again within 2-3 days. o Stool softeners or mild laxatives are encouraged and may be needed for the duration of pain medication use. o Zgch-zft-crqqpnk options: Colace 100 mg twice daily or MiraLAX 17 grams mixed in 8 ounces of wateronce daily. ??? Prescription Dilaudid 2 mg 1-2 tabs every 4 hours PRN Pain PRN pain was written and sent to yourpharmacy. ??? Call the orthopaedic office to discuss medication refills if needed. The prescriptions will needto be picked up at the office or could be mailed to you with several days??? notice. Exercise/Activities: ??? Activities of daily living as tolerated. ??? Use a cane, crutches, or walker while walking until your strength and stability improves. Your Physical Therapist will provide you with guidance. EXERCISE/ACTIVITIES (continued): ??? Walk several times each day on flat surfaces to tolerance. Gradually work up to a mile (20 minutes) per day. ??? Avoid sitting for longer than an hour when not asleep. Short walks around the home every hour isrecommended. This will help to prevent a blood clot. ??? Stairs are difficult after surgery; use an assistive walking device for stair safety. ??? Sexual activity can be resumed 4-6 weeks after surgery. ANTICOAGULATION therapy: You will be prescribed Aspirin, Coumadin, or Eliquis to thin your blood and prevent a blood clot after surgery. Please check your prescription and refer to the instructions below. [x]Aspirin, Enteric Coated: ??? After surgery, take Aspirin 81 mg tablet every 12 hours for 4 weeks. ??? Once you have completed your initial 4 week Aspirin Therapy, you may return to your routine aspirin dose if you were taking it prior to surgery. MEDICATIONS: ??? Read all medication instructions and take as prescribed. ??? Keep a list of your medicines, vitamins, and herbal supplement you take. Keep this list with youat all times. Show it to all of your caregivers at every visit. Keep the list up-to-date. ??? If any new medications are prescribed as a result of this surgery, and you have questions, please ask for written information on their side effects, interactions, foods to avoid, and when to stop taking it. Information will be provided by the pharmacy that fills the prescription. ??? Only take glmd-avi-adjwvby or prescription medicine for pain, discomfort or fever as directed byyour caregiver. ??? Consult your Orthopaedic provider, nurse or pharmacist with any questions. CALL YOUR SURGEON OR SEEK MEDICAL CARE IF: ??? You have a fever over 101.5 degrees Fahrenheit. ??? You have increased pain, tenderness, or redness in your calf or leg. ??? You have increased swelling of your thigh, calf, ankle, or foot. ??? You develop redness, swelling, or drainage from your incision. ??? You have increased hip pain with both activity and rest. ??? You have pain with urination, increased frequency and urgency of urination. Your physician may want to assess you for a urinary tract infection. CALL 911 IF: ??? You have shortness of breath or chest pain with breathing. SMOKING CESSATION INFORMATION: ??? [place] QUITLINE: ??? [place] QUITLINE: ??? www.[employer].Availink If you smoke, stop now! Smoking may impede healing. MAKE SURE YOU: ??? Understand these instructions. ??? Will seek medical care if you are feeling poor, or get worse. ??? Will call the Orthopaedic Department with any questions or concerns at . Future Appointments Date Time Provider Department Center 03/29/2019 2:00 PM Ary Alexander PA [facility] OR[facility]O [facility] very [facility] and we look forward to seeing you in the office soon. Future Appointments and Orders Future Appointments and Orders Future Appointments Provider Department Dept Phone 03/29/2019 2:00 PM Ary Alexander PA Orthopaedics at [facility] Arrive at: [facility] Inpatient Provider Contact Information: For questions regarding this summary or this inpatient hospitalization, please call the [facility] Orthopedic Office at [phone]. ROBERTH Milligan 02/28/2019 documented in this encounter Discharge Instructions Discharge InstructionsThierno Do PA - 02/28/2019 8:31 AM EDT Precautions: ??? Try not to bend, lift, twist, or carry heavy objects. No lifting greater than 10lbs for one month after surgery. ??? Do not turn your feet excessively inward or outward. ??? Use of a shower seat is recommended to prevent a fall. ??? Use a walker, crutches, or cane. As your strength and stability improve you may begin to decrease use of an assistive walking device. ??? It is recommended you follow the above precautions for 3 months after surgery. ??? Use of narcotic pain medications and muscle relaxants can have a sedating effect; please use caution as this may increase your risk of a fall. Restrictions: ??? Do not drive a car. The ability to drive will be decided by your physician, physician preschool teacher's assistant and physical therapist. ??? To be able to return to driving the following is recommended: o No longer taking pain medications. o Having the leg strength to press hard on the car brakes. o Clearance is usually between 4-6 weeks after surgery. ??? Do not return to work until cleared by your physician or physician preschool teacher's assistant. o You may need to return to modified duty initially. ??? No routine dental work or dental cleaning until 6 months after joint replacement surgery. Pleasecall if you have a dental emergency and it will determined if you need a prophylactic antibiotic to prevent a joint infection. o Please call the orthopaedic if you have any questions. Home Care Instructions: ??? Good personal hygiene and hand washing is recommended at home as they are critical to preventingillness and infection. If soap and water are unavailable, you can use an alcohol-based hand emergency response officer to clean your hands. ??? A Mepilex dressing was applied to your incision site. This dressing should stay on for 5 days. After 5 days the dressing can be removed. INCISION INSTRUCTIONS: Dressing change 5 days from application of Mepilex dressing post-op, trim distal incision suture tail to skin level after 14 days post-op ??? You may shower (no bathing), with a Mepilex dressing covering your incision site. Pat the incision/dressing dry with a clean, dry towel. ??? Once the Mepilex dressing is removed you often do not need additional dressings to cover your incision unless otherwise instructed by your physician, physician preschool teacher's assistant, or nurse. ??? Steri-strips have been applied to your incision and should fall off on their own. If they have not fallen off they can be gently removed 21 days after your surgery. ??? Do not apply ointments, lotions, or creams to your incision site. ??? Once your incision is completely healed, you may use Vitamin E and Aloe on the incision to lessen and soften the scar, please obtain clearance from Orthopedics prior to doing so. Diet: ??? Continue your usual diet. Fresh fruits, vegetables, and foods containing fiber and iron are recommended. ??? Drink plenty of fluids especially water. Comfort: ??? Surgical incision soreness can be expected. ??? Frequent use of ice is recommended. ??? Take pain medications as prescribed. Lessen the use of pain medication as your pain decreases. ??? You may take Tylenol (Acetaminophen) for mild to moderate pain. Please avoid use if you have an allergy or sensitivity to Tylenol. o Tylenol 650 mg may be taken every 6-8 hours or Tylenol 500 mg may be taken every 4 hours. Do not take more than 3000 mg of Tylenol in a 24 hour period of time. o Avoid use of Ibuprofen, Naproxen or other NSAIDs in the first four weeks following surgery and while taking an anti-coagulant medication, unless otherwise directed by your physician or physician preschool teacher's assistant. ??? Celebrex is a non-steroidal anti-inflammatory (NSAID) that may be prescribed for you to take after surgery. Do not take additional NSAIDs such as Ibuprofen or Naproxen at the same time. ??? Your throat may be sore for the first 2-3 days following surgery; throat lozenges may be helpful. ??? Pain medications can cause you to become constipated. You will need to have a bowel movement before discharge to home and then again within 2-3 days. o Stool softeners or mild laxatives are encouraged and may be needed for the duration of pain medication use. o Skab-ktd-tpigzwo options: Colace 100 mg twice daily or MiraLAX 17 grams mixed in 8 ounces of wateronce daily. ??? Prescription Dilaudid 2 mg 1-2 tabs every 4 hours PRN Pain PRN pain was written and sent to yourpharmacy. ??? Call the orthopaedic office to discuss medication refills if needed. The prescriptions will needto be picked up at the office or could be mailed to you with several days??? notice. Exercise/Activities: ??? Activities of daily living as tolerated. ??? Use a cane, crutches, or walker while walking until your strength and stability improves. Your Physical Therapist will provide you with guidance. EXERCISE/ACTIVITIES (continued): ??? Walk several times each day on flat surfaces to tolerance. Gradually work up to a mile (20 minutes) per day. ??? Avoid sitting for longer than an hour when not asleep. Short walks around the home every hour isrecommended. This will help to prevent a blood clot. ??? Stairs are difficult after surgery; use an assistive walking device for stair safety. ??? Sexual activity can be resumed 4-6 weeks after surgery. ANTICOAGULATION therapy: You will be prescribed Aspirin, Coumadin, or Eliquis to thin your blood and prevent a blood clot after surgery. Please check your prescription and refer to the instructions below. [x]Aspirin, Enteric Coated: ??? After surgery, take Aspirin 81 mg tablet every 12 hours for 4 weeks. ??? Once you have completed your initial 4 week Aspirin Therapy, you may return to your routine aspirin dose if you were taking it prior to surgery. MEDICATIONS: ??? Read all medication instructions and take as prescribed. ??? Keep a list of your medicines, vitamins, and herbal supplement you take. Keep this list with youat all times. Show it to all of your caregivers at every visit. Keep the list up-to-date. ??? If any new medications are prescribed as a result of this surgery, and you have questions, please ask for written information on their side effects, interactions, foods to avoid, and when to stop taking it. Information will be provided by the pharmacy that fills the prescription. ??? Only take sihz-jcz-nmmazrf or prescription medicine for pain, discomfort or fever as directed byyour caregiver. ??? Consult your Orthopaedic provider, nurse or pharmacist with any questions. CALL YOUR SURGEON OR SEEK MEDICAL CARE IF: ??? You have a fever over 101.5 degrees Fahrenheit. ??? You have increased pain, tenderness, or redness in your calf or leg. ??? You have increased swelling of your thigh, calf, ankle, or foot. ??? You develop redness, swelling, or drainage from your incision. ??? You have increased hip pain with both activity and rest. ??? You have pain with urination, increased frequency and urgency of urination. Your physician may want to assess you for a urinary tract infection. CALL 911 IF: ??? You have shortness of breath or chest pain with breathing. SMOKING CESSATION INFORMATION: ??? [place] QUITLINE: ??? [place] QUITLINE: ??? [email or web address].Availink If you smoke, stop now! Smoking may impede healing. MAKE SURE YOU: ??? Understand these instructions. ??? Will seek medical care if you are feeling poor, or get worse. ??? Will call the Orthopaedic Department with any questions or concerns at . Future Appointments Date Time Provider Department Center 03/29/2019 2:00 PM Ary Alexander PA APD ORTHO APD We are very pleased [facility] and we look forward to seeing you in the office soon. AttachmentsThe following attachments cannot be sent through Care Everywhere.TKR (Total Knee Replacement): Post-op (Beninese)documented in this encounter Medications at Time of Discharge Medication Sig Dispensed Refills Start Date End Date acetaminophen (TYLENOL) Take 1 tablet by 30 tablet 1 2018 500 mg Tablet mouth every 4 hours. aspirin 81 mg Tablet, Take 1 tablet by 30 tablet 3 02/29/20 19 Delayed Release (E.C.) mouth 2 times daily. multivitamin (THERAGRAN) Take by mouth. 0 Tablet [place] 500-1,000 mg Take by mouth. 0 Capsule gemfibrozil (LOPID) 600 Take 600 mg by 0 mg tablet mouth 2 times daily (before meals). omeprazole (PRILOSEC) 20 Take 40 mg by mouth 0 mg capsule daily. gabapentin (NEURONTIN) Take 1 capsule by 35 capsule 0 201803/29/2019 300 mg mouth nightly. CapsuleIndications: Attempt to wean off Primary osteoarthritis of as tolerated right knee polyethylene glycol Take 17 g by mouth 14 each 0 02/29/20 19 03/29/2019 (MIRALAX) 17 gram Powder daily as needed. in Packet senna-docusate Take 1 tablet by 60 tablet 11 02/28/2019 08/0 04/2019 (PERICOLACE) 8.6-50 mg mouth 2 times Tablet daily. HYDROmorphone (DILAUDID) Take 1 tablet by 40 tablet 0 02/2812/07/2020 2 mg Tablet mouth every 4 hours as needed for Pain. meloxicam (MOBIC) 15 mg Take 1 tablet by 30 tablet 12 201812/07/2020 TabletIndications: mouth daily. Primary osteoarthritis of right knee documented as of this encounter Progress Notes Melanie Randall RN - 02/28/2019 10:05 AM EDT Checo Sanchez discharged per provider order to home via private car. All IV???s removed. Discharge instructions reviewed with patient . All questions or concerns answered at this time. Patient encouraged to call with any further questions or concerns. Copy of After Visit Summary given to patient at time of discharge. All personal belongings returned to patient, including prescription medications. Patient assisted to personal vehicle via staff member and wheelchair. Melanie Randall RN, 02/28/2019 Thierno Do PA - 02/28/2019 8:13 AM EDT [facility] PROGRESS NOTE Admit Date: 02/26/2019 Hospital Day 2 days ATTENDING: Mesfin Leach M.D. Problem List-based Assessment & Plan: No notes have been filed under this hospital service. Service: Orthopaedics Active Non-Hospital Problems Diagnosis ??? Knee pain ??? Hyperlipidemia ??? Hiatal hernia ??? Conductive hearing loss ??? Bradycardia ??? Basal cell carcinoma of skin ??? Actinic keratosis ??? Abnormal sexual function ??? Osteoarthrosis History of Present Illness: Checo Sanchez is a 53 y.o. male. Status post right total knee arthroplasty ROS: Negative Significant 24 hour events: Feeling well. Pain is well controlled. Tolerating PO, No N/V. No CP/SOB. Wood out, voiding. OOB with Room independence. Ready for DC. Infusions: ??? lactated ringers infusion 1,000 mL Intravenous Continuous ### Peripheral IV Line - Single Lumen 02/26/19 1310 basilic vein (medial side of arm), right 20 gauge (Active) Indication/Daily Review of Necessity medication therapy intermittent 02/27/2019 12:48 AM Site Preparation/Maintenance site cleansed: chlorhexidine solution 02/26/2019 1:09 PM Securement sterile tape strips, secured with 02/27/2019 12:48 AM Patency/Maintenance flushed without difficulty 02/27/2019 12:48 AM Phlebitis 0-->no symptoms 02/27/2019 9:15 AM Infiltration 0-->no symptoms 02/27/2019 9:15 AM Site Signs/Symptoms no redness;no swelling;no warmth;no pain 02/26/2019 4:42 PM Incision 07/09/19 1502 Right anterior knee (Active) Incision WDL WDL 02/27/2019 7:47 AM Dressing Appearance no drainage;dry;intact 02/27/2019 7:47 AM MEDICATIONS: Scheduled Meds: ??? sodium chloride 0.9 % (flush) 3 mL Intravenous 2 times per day ??? senna-docusate 1 tablet Oral BID ??? acetaminophen 500 mg Oral Q4H WILMER ??? ketorolac 30 mg Intravenous Q6H ??? dexamethasone 4 mg Intravenous BID ??? aspirin 81 mg Oral BID ??? gabapentin 600 mg Oral Nightly ??? pantoprazole 40 mg Oral Daily ??? lactobacillus with pectin 1 capsule Oral BID Continuous Infusions: ??? lactated Ringers Vitals: Patient Vitals for the past 8 hrs: BP Temp Temp src Pulse Resp SpO2 02/28/19 0412 130/76 36.4 ??C (97.5 ??F) Temporal 63 18 96 % Intake/Output Summary (Last 24 hours) at 02/28/2019 0813 Last data filed at 02/27/2019 1800 Gross per 24 hour Intake 720 ml Output 500 ml Net 220 ml Body mass index is 27.05 kg/m??. EXAM: General: WA. A&O x 3, NAD CV: RRR Resp: No acute distress Right LE: Mepilex bandage clean, dry and intact Calf and thigh compartments are soft, Homans negative Mild distal quadriceps tenderness, tolerates quad activation and active knee flexion/extension, 5/5 DF/PF, distally N/V intact Studies/Imaging previous 24hr reviewed. Remarkable for the following: NA LABS: Recent Results (from the past 24 hour(s)) Basic Metabolic Panel (non-fasting) Result Value Ref Range Glucose Lvl 166 65 - 199 mg/dL BUN 23 (H) 10 - 20 mg/dL Creatinine 0.90 0.80 - 1.50 mg/dL Sodium 139 135 - 145 mmol/L Potassium 4.6 3.5 - 5.0 mmol/L Chloride 102 98 - 107 mmol/L CO2 25 22 - 31 mmol/L Anion Gap 12 5 - 15 mmol/L Calcium 9.8 8.5 - 10.5 mg/dL eGFR 98 >=60 mL/min/1.73 m?? eGFR 113 >=60 mL/min/1.73 m?? Hemogram Result Value Ref Range WBC 9.5 4.0 - 9.5 x10(3)/mcL RBC 4.27 (L) 4.58 - 5.54 x10(6)/mcL Hemoglobin 13.1 (L) 13.7 - 16.5 gm/dL Hematocrit 37.1 (L) 40.5 - 48.5 % MCV 86.9 82.9 - 93.1 fL MCH 30.7 27.5 - 32.1 pg MCHC 35.3 32.0 - 35.7 gm/dL Platelets 185 145 - 357 x10(3)/mcL RDWSD 39.4 36.0 - 45.0 fL RDWCV 12.4 11.4 - 13.8 % MPV 10.9 7.6 - 12.9 fL Differential, Automated Result Value Ref Range Neutrophils % 86.9 % Neutr Abs (ANC) 8.29 (H) 1.70 - 6.10 x10(3)/mcL Lymphocytes % 8.2 % Lymphocytes Abs 0.8 (L) 0.9 - 3.2 x10(3)/mcL Monocytes % 4.6 % Monocyte Abs 0.4 0.3 - 0.9 x10(3)/mcL Eosinophils % 0.0 % Eosinophils Abs 0.0 0.0 - 0.4 x10(3)/mcL Basophils % 0.1 % Basophils Abs 0.0 0.0 - 0.1 x10(3)/mcL Immature Gran % 0.20 % Paula Gran Abs 0.02 0.00 - 0.04 x10(3)/mcL A/P: 53 y.o. male POD#2 Status post right knee arthroplasty. Doing very well. No current issues Plan: ?? Weight bear as tolerated with walker and assist. ?? Physical and Occupational Therapy twice daily during duration of stay ?? Frequent icing to the surgical site Antibiotics x 24 hours - completed Pain Control: Dilaudid 2mg, Acetaminophen 500 mg, Gabapentin 600 mg, Ketoralac and Dexamethasone DVT Prophalaxis: Aspirin 81 mg Case management for discharge planning and assistance with setting up home VNA services at the patient's request. Patient is set up with [facility] and declines VNA services. Dispo: Anticipate discharge today, 02/28/19, if patient is meeting safety goals with physical therapy. ROBERTH Milligan Trina Zarco OTA - 02/27/2019 2:38 PM EDT OT Progress Note BIB [facility] Note Type: Daily Note Charges: [x] Self-Care/Home Management x1 [] Therapeutic/Functional Dynamic Activities x [] Therapeutic Exercise x [] Neuro Re-education x Start Time: 1:44PM Minutes: 17 Equipment Recommendations: [] Power Press Operator []Sock Aid []Shoe Horn []Dressing Stick []Long Handled Sponge []Elastic Shoe laces []Walker Basket [x]Other: Pt reported he has a walker basket at home to use to assist with independence with ADL and IADL tasks. Precautions/Restrictions: WBAT Patient Assessment: Pt agreeable to engage in session. Pt attentive and interested in reviewing pacing, movement activities and rest breaks. Pt reports having assist as needed. At the end of his tx session, pt resting in recliner with his legs elevated and ice on his right knee. Call ely/tv remote, phone, bedside tray table and personal items within reach. Vital Signs: Pt's vital signs remained stable throughout his tx session. ADL: Bathing-Pt and DIGITAL TECHNICIAN(Radha) reported pt completing a shower at Mod I level. Pt reported no questions orconcerns. Dressing-Pt able to complete all dressing tasks at Mod I level. Pt reported no questions or concerns. toileting-Pt reported completing tasks independently. Grooming-Pt reported washing his hair while showering. He completed additional hair and oral care atthe sink. Mobility: Shower Transfers-Pt completes transfers with a FWW. Functional Mobility-Pt completes fxl mobility with a FWW. He completes sit<- >stand transfers independently. IADL: Pt able to gather clothing and shoes to complete ADL tasks. Goals: LTG: Complete TB dressing tasks with Mod I. STG: Complete TB dressing tasks with Mod I. Date Goal Established: 02/27/2019 Estimated time to achieve goal: 3 days Pt has met above goal with no questions or concerns. The patient did not demonstrate any signs of symptoms of pain throughout session. Education Completed ?? Education Topics: Other-pacing, movement activities and rest breaks ?? Completed with: [x] Patient [] Spouse [] Significant other [] Family [] Caregiver ?? [] Other ?? Completed by [x] Verbal education [] Demonstration [] Handout [] Other: ?? Response to Education: [x] Stated Understanding [] Reinforcement necessary [] Returned demonstration [x] Demonstrated understanding [] No evidence of learning [] Refused Barriers to d/c at this time include: [] Home environment [] Family support [x] Equipment needs-pt has items at home from previous surgery to use as needed. [] Cognitive deficits impacting functional independence [] Physical deficits impacting functional independence [] Self-care deficits impacting functional independence [] Other Ary Alexander PA - 02/27/2019 9:27 AM EDT [facility] PROGRESS NOTE Admit Date: 02/26/2019 Hospital Day 1 day ATTENDING: Mesfin Leach M.D. Problem List-based Assessment & Plan: No notes have been filed under this hospital service. Service: Orthopaedics Active Non-Hospital Problems Diagnosis ??? Knee pain ??? Hyperlipidemia ??? Hiatal hernia ??? Conductive hearing loss ??? Bradycardia ??? Basal cell carcinoma of skin ??? Actinic keratosis ??? Abnormal sexual function ??? Osteoarthrosis History of Present Illness: Cheoc Sanchez is a 53 y.o. male. Status post right total knee arthroplasty ROS: Negative Significant 24 hour events: Feeling well, good pain control. Tolerating PO, No N/V. No CP/SOB. Wood out, voiding. OOB with RN last night ambulating with walker. Infusions: ??? lactated ringers infusion 1,000 mL Intravenous Continuous ### Peripheral IV Line - Single Lumen 02/26/19 1310 basilic vein (medial side of arm), right 20 gauge (Active) Indication/Daily Review of Necessity medication therapy intermittent 02/27/2019 12:48 AM Site Preparation/Maintenance site cleansed: chlorhexidine solution 02/26/2019 1:09 PM Securement sterile tape strips, secured with 02/27/2019 12:48 AM Patency/Maintenance flushed without difficulty 02/27/2019 12:48 AM Phlebitis 0-->no symptoms 02/27/2019 9:15 AM Infiltration 0-->no symptoms 02/27/2019 9:15 AM Site Signs/Symptoms no redness;no swelling;no warmth;no pain 02/26/2019 4:42 PM Incision 02/26/19 1502 Right anterior knee (Active) Incision WDL WDL 02/27/2019 7:47 AM Dressing Appearance no drainage;dry;intact 02/27/2019 7:47 AM MEDICATIONS: Scheduled Meds: ??? sodium chloride 0.9 % (flush) 3 mL Intravenous 2 times per day ??? senna-docusate 1 tablet Oral BID ??? acetaminophen 500 mg Oral Q4H WILMER ??? ceFAZolin 2 g Intravenous Q8H ??? ketorolac 30 mg Intravenous Q6H ??? dexamethasone 4 mg Intravenous BID ??? aspirin 81 mg Oral BID ??? gabapentin 600 mg Oral Nightly ??? pantoprazole 40 mg Oral Daily ??? lactobacillus with pectin 1 capsule Oral BID Continuous Infusions: ??? lactated Ringers Vitals: Patient Vitals for the past 8 hrs: BP Temp Temp src Pulse Resp SpO2 02/27/19 0741 139/71 36.4 ??C (97.5 ??F) Oral 66 20 98 % 02/27/19 0408 132/81 36.8 ??C (98.2 ??F) -- 56 16 96 % Intake/Output Summary (Last 24 hours) at 02/27/2019 0928 Last data filed at 02/27/2019 0906 Gross per 24 hour Intake 3340 ml Output 3900 ml Net -560 ml Body mass index is 27.05 kg/m??. EXAM: General: WA. A&O x 3, NAD CV: RRR Resp: No acute distress Right LE: Postop bandage clean, dry and intact, removed Incision well approx, Mepilex applied Calf and thigh compartments are soft, Homans negative Mild distal quadriceps tenderness, tolerates quad activation and active knee flexion/extension, 5/5 DF/PF, distally N/V intact Studies/Imaging previous 24hr reviewed. Remarkable for the following: NA LABS: Recent Results (from the past 24 hour(s)) Basic Metabolic Panel (non-fasting) Result Value Ref Range Glucose Lvl 154 65 - 199 mg/dL BUN 16 10 - 20 mg/dL Creatinine 0.93 0.80 - 1.50 mg/dL Sodium 139 135 - 145 mmol/L Potassium 4.6 3.5 - 5.0 mmol/L Chloride 105 98 - 107 mmol/L CO2 24 22 - 31 mmol/L Anion Gap 10 5 - 15 mmol/L Calcium 9.2 8.5 - 10.5 mg/dL eGFR 94 >=60 mL/min/1.73 m?? eGFR 109 >=60 mL/min/1.73 m?? Hemogram Result Value Ref Range WBC 11.2 (H) 4.0 - 9.5 x10(3)/mcL RBC 4.28 (L) 4.58 - 5.54 x10(6)/mcL Hemoglobin 13.2 (L) 13.7 - 16.5 gm/dL Hematocrit 37.0 (L) 40.5 - 48.5 % MCV 86.4 82.9 - 93.1 fL MCH 30.8 27.5 - 32.1 pg MCHC 35.7 32.0 - 35.7 gm/dL Platelets 195 145 - 357 x10(3)/mcL RDWSD 39.2 36.0 - 45.0 fL RDWCV 12.4 11.4 - 13.8 % MPV 11.0 7.6 - 12.9 fL Differential, Automated Result Value Ref Range Neutrophils % 91.2 % Neutr Abs (ANC) 10.25 (H) 1.70 - 6.10 x10(3)/mcL Lymphocytes % 5.3 % Lymphocytes Abs 0.6 (L) 0.9 - 3.2 x10(3)/mcL Monocytes % 3.2 % Monocyte Abs 0.4 0.3 - 0.9 x10(3)/mcL Eosinophils % 0.0 % Eosinophils Abs 0.0 0.0 - 0.4 x10(3)/mcL Basophils % 0.1 % Basophils Abs 0.0 0.0 - 0.1 x10(3)/mcL Immature Gran % 0.20 % Paula Gran Abs 0.02 0.00 - 0.04 x10(3)/mcL A/P: 53 y.o. male POD#1 Status post right knee arthroplasty Plan: ?? Weight bear as tolerated with walker and assist. ?? Physical and Occupational Therapy twice daily during duration of stay ?? Frequent icing to the surgical site Antibiotics x 24 hours Pain Control: Dilaudid 2mg, Acetaminophen 500 mg, Gabapentin 600 mg, Ketoralac and Dexamethasone DVT Prophalaxis: Aspirin 81 mg Case management for discharge planning and assistance with setting up home VNA services at the patient's request. Patient is set up with [facility] and declines VNA services. Dispo: Anticipate discharge on 02/28/19, if patient is meeting safety goals with physical therapy. He lives alone and would benefit from an additional night and another day of PT/OT. ROBERTH Abdullahi Marcellus Green RN - 02/26/2019 6:47 PM EDT Welcomed patient to floor. Oriented to ely, bed, menu, bathroom, etc. Requested patient not try to ambulate with out staff assistance. Patient describes pain in knee as a 2(10). Patient had headache in pacu that is now gone. Patient attributes this as being caffeine related. Patient now bothered by burning right eye. Saline drops placed by friend. Dinner arranged to be ordered with PACU nurse from pacu. Lungs clear. No dyspnea noted. On room air. Heart sounds regular. Equal and palpable pulses in all extremities. No edema. No fever. Bowel sounds in all quadrants. Last bowel movement yesterday afternoon 02/25/19. Wood in place. Reviewed chart, orders, labs, vitals, mar, etc. Educated on medications, pain management and care going forward. Patient anticipates two overnights. Will continue to reassess as needed. Amy Lopez RN - 02/26/2019 6:22 PM EDT Uneventful recovery in PACU with exception of WILLIS, better after coffee and food. Report to Almaz Green RN and transferred in hospital bed. documented in this encounter H&P Notes Ary Alexander PA - 02/26/2019 2:09 PM EDT Patient Name: Checo Sanchez Patient Age: 53 y.o. Birthdate: 1965 Admit date: 02/26/2019 Attending Physician: Mesfin Leach MD The patient's history and physical exam have been reviewed and completed. There has been no intervalchange from that of the pre-operative history and physical exam done within the last 30 days. documented in this encounter Miscellaneous Notes Op Note - Mesfin Leach MD - 02/27/2019 1:11 PM EDT [facility] Operative Note [address] [address] Surgery Start Time: 1502 Surgery Stop Time: 163 Date: 02/26/2019 Surgeon: Mesfin Leach MD Railway Track Worker: ROBERTH Hardwick Grader Tender: Keny Meraz CRNA Anesthesia: Spinal and sedation Pre-operative diagnosis: Right knee osteoarthritis Body mass index is 27.05 kg/m??. Post-operative diagnosis: Same Surgical Procedure Performed: Injection right knee with weight-based marcaine 0.25% with epi, 10 mg morphine, ketorolac 30 mg, into skin, subcutaneous and deep tissues Right total knee arthroplasty, CR Findings: Severe right knee OA with full cartilage loss Components Used: Gutierrez and Nephew Journey 2 Oxinium cemented, CR Versabond, 1 package Estimated Blood Loss: 125 cc Tourniquet Time: 60 min Tourniquet Pressure: 200 mmHg Weight bearing status: Weight bearing as tolerated Wound closure: Monocryl Dressing changes: Bandage to be left in place for 5 days before removal. Follow-up Plan: In [facility] orth[facility] clinic in 4 weeks post-operatively with new x-rays of operated joint. Anticoagulation: As per orders Possible barriers to discharge: None Plan for hospital stay: Standard Anticipated Length of Stay: 1 days. Special orders: None Patient who has failed non-operative treatment for severely symptomatic knee osteoarthritis, including activity modification, pain/anti-inflammatory medication and therapy. Patient continues to have significant activity-limiting disability that is reducing quality of life. Prior to the procedure, informed consent was obtained and the patient was educated about surgical and non- surgical options for treatment. Patient understood benefits of total knee replacement including potential reduction of pain and improved joint function. Also understood were potential risks of infection, deep venous thrombosis, pulmonary embolus, stroke, fracture, continued pain or stiffness, bleeding, nerve or blood vessel injury, implant failure that may require further surgical procedures and possible cardiopulmonary morbidity or . Alternatives to surgery were thoroughly discussed. Patient understood, and elected to proceed with the following procedure. Procedure Note: After verification of patient and site, and after administration of adequate anesthesia, patient waspositioned supine and a well-padded tourniquet was placed on the thigh of the operated. A surgical timeout was carried out. Wood catheter was inserted with sterile technique. Patient received prophylactic intravenous antibiotics. Patient was then prepped and draped in the usual sterile manner with the entire operated extremity draped free. The leg was exsanguinated with Esmarch bandage, and tourniquet was inflated. A midline anterior incision was marked over the iodine-impregnated drape, measuring 15 cm, and extending from just above the patella to the medial side of the tibial tubercle. Local anesthetic was injected, skin was incised, and dissection was carried through subcutaneous fat down to the joint capsule, and bleeders were coagulated. A full-thickness medial skin flap was developed and a tendon-splitting medial arthrotomy was carried out after thoroughly freeing adhesions to overlying fat and deep tissues . We began with the patella, after resecting fully the fat pad, the patella was held with the patellarclamp, we obtained the preoperative measurement of the patellar thickness, aligned the clamp and then using an oscillating saw, we made the patellar cut. The patellar diameter was then determined and aappropriately- sized patellar jig was placed, and the three drill-holes were made. The trial patella button was placed, lateral osteophyte was resected, and again the patella was measured with a caliperand found to be restored to its pre-resection thickness. At this point, we turned our attention to the medial periosteum and superficial MCL, which were lifted off the anteromedial tibia, to the mid-saggital line. The patellar tendon adhesions to the anterior tibia were released, stopping at the level of the tibial tubercle. The patella was everted and the knee was flexed to 90 degrees. The ACL was resected from its footprint off the tibia but the PCL was preserved. A thin bent Castillo retractor was carefully placed behind the tibia, and by applying an anterior force, the knee joint was dislocated. The plateau was exposed by placing a second thin bent Hohmann retractor over the lateral side of the plateau, and the PCL footprint was protected with a round chisel. Attention turned to the femur, where the step drill was used to enter the femoral canal from a starting point just anterior and medial to the apex of the intercondylar notch. Canal was suctioned for fat contents, and the intramedularry femoral guide was fully seated, incorporating proper eternal rotation after palpating the epicondyles, with the distal femur cut set to 7 degrees. A 8 mm distal femoral resection was carried out. Rongeur was used to remove any osteophytes. Attention turned back to the tibia which was exposed with blunt Hohmann behind the tibia, then thin bent Hohmans both medially and laterally. While retracting collateral ligaments safely, the tibial alignment guide was set, we used a stylus which was situated in the most deficient portion of the tibial cut, and then the pins were inserted into the tibia. We checked our alignment with an alignment cesar. After confirming alignment, a cross pin was placed. The tibial cut was confirmed with an cirilo wing, and then the cut was made with a narrow oscillating saw, avoiding the bony PCL footprint. The knee was fully extended, a laminar line supply was placed in the intercondylar notch area, and this allowed us to distract the joint and visualize the menisci. Both the medial and lateral meniscus was then resected using electrocautery. Any bony debris in the back of the knee joint was removed. Attention then turned back to the femur where we began sizing of the femoral component. An anterior referencing system was used, using this we determined the correct size and placed the 2 drill holes in the anterior portion of the previously cut femur. The appropriate femoral sizing guide was applied, and we confirmed that the resection amounts were appropriate. The anterior then posterior and chamfer cuts were made, the cutting guide was removed. We returned back to the tibia at this point, we sized the tibial baseplate, and after placing the appropriate guide on a handle, we aligned the center of the component with the center of the tibial tubercle. The baseplate trial was then pinned, we used the drill followed by the punch according to field sales executive's instructions. The provisional baseplate was removed. All trial components were then placed, along with a trial tibial insert. Tracking was examined through [id number], and there was no evidence of lateral tilt or lift-off. No lateral release was performed. At this point, all trial components were removed, bone plug was fashioned to seal the intramedullarycanal, bony surfaces were thoroughly irrigated and then dried. Methylmethacrylate cement one 40 grampackage was then mixed, and applied to the backside of the femur, tibial baseplate, and the patellarbutton. Cement was also manually pressurized into the femur and tibia prior to application of the components. The tibial component was then inserted, fully seated, and excess cement was removed. Femoral component was then placed. An appropriately-sized polyethylene trial was placed after ensuring no debris remained on the baseplate. The knee was reduced, margot to full extension, and held while the pa tella was dried, cement digitally pressurized, and polyethylene button was clamped into place. Once cement completely polymerized, knee was flexed and dislocated, any extruded cement was removed, the final tibial polyethylene was inserted, and the knee was reduced. After thorough pulsatile lavage irrigation, Orthopat drain was placed exiting superolaterally, and the tourniquet was deflated. All visible bleeders were then coagulated. Closure was accomplished with Vicryl 1 for capsule followed by Quill #1, and closed-capsule ROM was from full extension to 120 degrees of flexion with gravity. The deep subcutaneous layers were closed with Vicryl 0, then Vicryl 2-0 was used to close the subdermal interval. Monocryl and Dermabond were used to close skin, and a dry sterile dressing and elastic wrap were applied. The post- surgery timeout, patient was returned to recovery room in stable condition. All counts were correct. The surgical services assistant, ROBERTH Hardwick, worked under my direction for the duration of the operativesession. The preschool teacher's assistant adequately prepped the operative site and maintained the best possible exposure of anatomy incident to the procedure. Implant Name Type Inv. Item Serial No. Medical Equipment Repair Technician Lot No. LRB No. Used Action CEMENT VERSABOND 40GR ([id number] - [id number] IMPLANTS CEMENT VERSABOND 40GR ([id number]) [id number] GUTIERREZ& NEPHEW - GUTIERREZ NEPH [id number] Right 1 Implanted FEMORAL OX WEB SOLUTIONS ARCHITECT CR SZ 6 RT ([id number]) (AutoReq) - [id number] IMPLANTS FEMORAL OX WEB SOLUTIONS ARCHITECT CR SZ 6 RT ([id number]) (AutoReq) [id number] GUTIERREZ [employer] NEPHEW - GUTIERREZ NEPH [id number] Right 1 Implanted PLATE BASE TIBIAL WEB SOLUTIONS ARCHITECT SZ 5 RT ([id number]) (AutoReq) - [id number] IMPLANTS PLATE BASE TIBIAL WEB SOLUTIONS ARCHITECT SZ 5 RT ([id number]) (AutoReq) [id number] GUTIERREZ [employer] NEPHEW - GUTIERREZ NEPH [id number] Right 1 Implanted PATELLA RESURFACING [id number] ([id number]) (AutoReq) - [id number] IMPLANTS PATELLA RESURFACING [id number] ([id number]) (AutoReq) [id number] GUTIERREZ [employer] NEPHEW - GUTIERREZ NEPH [id number] Right 1 Implanted INSRT CR ART XLPE SZ5/6 11MMRT ([id number]) (AutoReq) - [id number] IMPLANTS INSRT CR ART XLPE SZ5/6 11MMRT ([id number]) (AutoReq) [id number] GUT[employer]RE[employer] NEPHEW - GUTIERREZ NEPH [id number] Right 1 Implanted Initial Assessments - Joann Adams, PT - 02/27/2019 11:05 AM EDT PT Initial Ortho Eval Diagnosis: R TKA Rehab Potential: Good Evaluation Date: 02/27/2019 Orders through: 02/28/19 Referring Physician:Dr. Leach Anticipated DME and discharge needs: VNA PT/OT Time In/Out: 1105/1132 Total time: 27 minutes Cognitive Status: Alert and Oriented X3 Patient Active Problem List Diagnosis ??? Status post total right knee replacement with Dr. Leach on 02/26/19 ??? Knee pain ??? Hyperlipidemia ??? Hiatal hernia ??? Conductive hearing loss ??? Bradycardia ??? Basal cell carcinoma of skin ??? Actinic keratosis ??? Abnormal sexual function ??? Osteoarthrosis Past Surgical History: Procedure Laterality Date ??? COLONOSCOPY TIMES 2 ??? JOINT REPLACEMENT Left KNEE ??? KNEE ARTHROPLASTY Left 2018 ??? PRO TOTAL KNEE ARTHROPLASTY Right 02/26/2019 TOTAL KNEE ARTHROPLASTY ([facility] 20.72) performed by Mesfin Leach MD at [facility] OR ??? WISDOM TOOTH EXTRACTION ONLY ONE OF THEM EXTRACTED UNDER LOCAL Prior Hospital Care related to current admission: R TKA on 02/26/19. Hx of L TKA 02/2018 Precautions: WBAT, Fall, Full Code, Regular diet Weight Bearing status: R LE WBAT Subjective Patient reported history: Pt reports he had L TKA in 2018. He was able to get back to umping softball/baseball and was able to move as needed to see plays. 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 Mom and sister will be available to provide assistance as needed. NO stairs to enter/in home. Tub/shower combo with grab bar. Low toilet next to vanity and tub. Pt knows where to obtain shower chair and commode if needed. No trip hazards. Has a cat. Pain: initially: 08/30 with ambulation 11/28, 08/30 post ambulation Objective Pt position at start of session: Semi recumbant in room recliner, no visible discomfort at rest. Pt position and personal items at end of session: Semi recumbant in room recliner, ice to (R) knee. Call ely, room phone, personal items within reach. All Needs met Range of Motion ?? Affected Joint: R knee extension: lacking 11 deg R knee flexion: 98 ?? UE Quick Screen: WNL ?? LE Quick Screen: WNL Strength: ?? Affected Joint: able to move against gravity and accept WB ?? UE Quick Screen: able to move against gravity and accept WB ?? LE Quick Screen: able to move against gravity and accept WB Transfers: ??? Sit/stand o [place]: Mod I o Comments: no significant deviations from elevated surface ??? Ambulation: o [place]: Supervision o Assistive Device: FWW o Distance: 300 feet o Comments: cues to increase (R) knee flexion during toe off and swing phase of gait Balance ??? Static Balance Assessment: o Seated: able to balance safely with/without UE support o Standing normal BECKY: able to balance safely with/without UE support ??? Dynamic Balance Assessment o Seated: able to move within BECKY without LOB o Standing: able to move within BECKY without LOB Today's Treatment: ?? PT Evaluation ?? Self Care/Training: ?? Pt education: pacing, safety, precautions, AD use ?? TherEx: ?? Per protocol: seated, supine, long sitting ?? Gait Training: ?? Cue for heel/toe gait to improve knee flexion Assessment Assessment: Pt is a pleasant 53 y.o. male who presents to acute PT following (R) TKA performed by Dr. Leach on 02/26/19. Pt presents with strength and ROM deficits consistent with recent surgical history. Pt demonstrated good initial mobility. He required intermittent cues for proper mechanics with ambulation. He demonstrated improved ROM with ambulation with increased distance. Pt would benefit from skilled PT to address the above impairments and maximize function. Plan of care has been discussed with the pt and the pt is in agreement. Goals: 1. Pt able to ambulate 250 feet Mod I on regular, indoor surfaces, with use of FWW. 2. Pt able to perform sit/stand transfer Mod I from a variety of surfaces. 3. Pt able to ascend/descend 4 stairs Mod I with appropriate AD 4. Pt instructed in HEP and demonstrate understanding. 5. Pt instructed in pacing and verbalize understanding. Plan Frequency: BID Duration: 1-2 days Planned Interventions: TherEx, Thac, Neuro, GT, MT, Pt/family education, and d/c planning Plan of care has been discussed with the Pt and the Pt is in agreement Charges: Brianna Llanes, Theresilas 2016 PT Evaluation Code Rationale: ?? Diagnosis & Pertinent Co-Morbidities, personal factors, and present illness affecting Plan ofCare: (see above); Additional personal factors or co- morbidities that impact plan: ?? Total # of Factors: 0 1-2 3+ x ?? Examination of body system impairments, functional limitations and behaviors, and/or participation restrictions. Addressing 1-2 elements Addressing 3 + elements x Addressing 4 + elements ?? Clinical presentation: See assessment above. Stable/Uncomplicated Evolving/Fluctuating Symptoms Unstable/Unpredictable x ?? Clinical decision making of low complexity based on pt's functional performance as outlined in this evaluation. Care Management - Kia Carl RN - 02/27/2019 9:23 AM EDT Case Management Initial Assessment Kia Carl RN reviewed record and discussed patient with Interdisciplinary Team. CM introduced self and role of Case Management to patient and services accepted. Contact card left for patient and family???s reference. Source of Information: patient Reason for Hospitalization: Reason for Admission as Stated by Patient: Right Knee Replacement Expected length of stay expressed by patient: 2 nights Hospitalized in the last 30 days: no Current decision making capacity: full capacity Advance Care Planning: no and not interested in any information Functional status prior to admission: independent Home environment: single-level living Social & Family Supports/Community Resources: community supports, parents and friends Behavioral Health History: denied Substance Use/Abuse: denied Primary Care Provider: Jermain Montalvo DO [phone] Pharmacy: [facility] in [facility] /Prescription Coverage: Primary Insurance: [employer] [place] Secondary Insurance: N/A DME: ben Community Resources: lives on [facility] of [facility] VNA: none Transportation: family/friend Anticipated Barriers to discharge: none noted Plan: Plan is d/c to home 02/28/19 @ noon without VNA services. Pt is already set up with 4 weeks of outpatient PT 2x/week. The best phone number to reach you post discharge is home/cell on file. A member of the Case Management team will continue to monitor progress and collaborate with the interdisciplinary team to create a safe discharge plan. See MCG guidelines for further clinical documentation during patient???s hospital stay. Kia Carl RN Initial Assessments - Lacey Dee OT - 02/27/2019 8:33 AM EDT OT Initial Evaluation Lacey Dee OT Low - [id number] Moderate - 60892 High - 28000 History [x] Brief history including review of medical record [] Expanded review of medical records; additional review of physical, cognitive, or psychosocial skills [] Review of medical records; extensive additional review of physical, cognitive, or psychosocial skills Examination [x] Identification of 1-3 performance deficits []Identification of 3-5 performance deficits [] Identification of 5 or more performance deficits Decision Making [x] No comorbidities that affect occupational performance; modification of tasks or assistance is not needed to complete eval [] May present with comorbidities; minimal to moderate modification of tasks or assistance is needed to complete eval [] Presents with comorbidities; significant modification of tasks or assistance is needed to complete eval Clinical Decision Making Complexity: [x] Low 50869 [] Moderate 57202 [] High 51277 Start Time: 8:42 Minutes: 27 Equipment Recommendations: Equipment Provided: Has artist relationship manager and shoe horn, long handled sponge. [] Power Press Operator []Sock Aid []Shoe Horn []Dressing Stick []Long Handled Sponge []Elastic Shoe laces []Walker Basket []Other: Discharge Recommendations: Pt preferring OP therapies. Family will be assisting with household tasks. Precautions/Restrictions: WBAT, Fall risk Patient Living Environment: Pt [facility] an [facility]. Familylocal and able to assist. No stairs to enter the house. BA is shower/tub, grab bars overhead and in shower. No shower chair. Standard height toilet, vanity next to toilet to assist with STS. Patient Prior Level of Functioning: Pt was completing all ADL/IADL's independently. 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 1 indoor cat at home, will have family members assist with litter box. Drives still. Patient Assessment: Pt is a 53 yo female/male admitted for elective R TKR. Pts hx significant for GERD, basal cell CA, L TKR. Pt is s/p R TKR. Chart reviewed, evaluation completed. Pt agreeable to engage in session. Pt would continue to benefit from skilled OT services to address ADL's, IADL's, UE strengthening, Functional mobility, AE needs, D/C planning. Vital Signs: Remained stable throughout. Cognition: A&O x 4 Sensation: No reports numbness/tingling Vision: Contacts for distance. Power Press Operator. 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 ADL: Pt requested to hold on functional dressing tasks until after shower which he wants to do once he is done with his PT session. Will coordinate with treatment team. Mobility: Bed mobility: Pt reports not having any trouble completing bed mobility this AM. Reported he had totoilet multiple times and did not need assist to complete supine to sit transfer. Transfers: Pt reported he transferred to the toilet a few times, used assist initially but started requesting to complete transfer himself using the grab bars. Goals: LTG: Complete TB dressing tasks with Mod I. STG: Complete TB dressing tasks with Mod I. Date Goal Established: 02/27/2019 Estimated time to achieve goal: 3 days Clinical Impression: Rehab Potential: Good Therapy Frequency: follow up x1 Duration of Therapy Interventions: 3 days Planned Interventions: [x] ADL Training [] IADL Training [] Balance Training [] Bed Mobility Training [] Fine Motor Coordination Training [] Joint Mobilization [] Motor Control/Coordination Training [] Neuro Re-Education []Orthotic Fitting/Training [] Prosthetic Fitting/Training [] Range of Motion [] Strengthening [] Stretching [x] Transfer Training The patient did not demonstrate any signs of symptoms of pain throughout session Education Completed ?? Education Topics: pain mgt, POC, ADL's, D/C planning ?? Completed with: [x] Patient [] Spouse [] Significant other [] Family [] Caregiver ?? [] Other ?? Completed by [x] Verbal education [] Demonstration [] Handout [] Other: ?? Response to Education: [x] Stated Understanding [] Reinforcement necessary [] Returned demonstration [] Demonstrated understanding [] No evidence of learning [] Refused Focus for next session: Complete dressing once PT session and shower done Barriers to d/c at this time include: [] Home environment [] Family support [] Equipment needs [] Cognitive deficits impacting functional independence [] Physical deficits impacting functional independence [] Self-care deficits impacting functional independence [] Other documented in this encounter Plan of Treatment Upcoming Encounters Date Type Specialty Care Team Description 03/15/2022 Procedure visit Dermatology Olamide Grayson MD [facility] [address] [place], [place] [address] (Wo rk) documented as of this encounter Procedures Procedure Name Priority Date/Time Associated Comments Diagnosis HEMOGRAM Routine 02/28/2019 6:28 AM Results f or this EDT procedure are i n the results section. DIFFERENTIAL, Routine 02/28/2019 6:28 AM Results for this AUTOMATED EDT procedure are i n the results section. CBC (WITH DIFF) Routine 02/28/2019 6:28 AM EDT BASIC METABOLIC PANEL Routine 02/28/2019 6:28 AM Results for this (NON-FASTING) EDT procedure are in the results section. HEMOGRAM Routine 02/27/2019 6:06 AM Results f or this EDT procedure are i n the results section. DIFFERENTIAL, Routine 02/27/2019 6:06 AM Results for this AUTOMATED EDT procedure are i n the results section. CBC (WITH DIFF) Routine 02/27/2019 6:06 AM EDT BASIC METABOLIC PANEL Routine 02/27/2019 6:06 AM Results for this (NON-FASTING) EDT procedure are in the results section. MODIFIER GUTIERREZ & 02/26/2019 2:34 PM OA/DJD NEPHEW ORTHO EDT TOTAL KNEE 02/26/2019 2:34 PM OA/DJD ARTHROPLASTY ([facility] EDT 20.72) SCAN DOC: TELEMETRY 02/26/2019 12:00 Resu lts for this STRIPS AM EDT procedure are i n the results section. documented in this encounter Results (ABNORMAL) Differential, Automated (02/28/2019 6:28 AM EDT) [facility] gist Method Time Signature Neutrophils % 86.9 % [facility] Neutr Abs (ANC) 8.29 (H) 1.70 - [facility] 6.10 LABORATORY x10(3)/mc L Lymphocytes % 8.2 % [facility] Lymphocytes Abs 0.8 (L) 0.9 - 3.2 [facility] x10(3)/mc LABORATORY L Monocytes % 4.6 % [facility] Monocyte Abs 0.4 0.3 - 0.9 [facility] DAY x10(3)/mc LABORATORY L Eosinophils % 0.0 % [facility] Eosinophils Abs 0.0 0.0 - 0.4 DAY x10(3)/ LABORATORY L Basophils % 0.1 % LABORATORY Basophils Abs 0.0 0.0 - 0.1 x10(3)/ LABORATORY L Immature Gran % 0.20 % LABORATORY Comment: Immature granulocytes(IG's)percentage an d absolute count will include metamyelocytes, myelocytes, and promyelo cytes. Blood smears from CBCs yielding IG's will be scanned manually for concor dance. If this scan disagrees with the automated IG or if promyelocytes are not ed, a manual differential will be performed. Paula Gran Abs 0.02 0.00 - 0.04 x10(3)/mcL LABORATORY Specimen Anatomical Collection Method Collection Time Receive d Time (Source) Location / / Volume Laterality Blood specimen 02/28/2019 6:28 AM 019 7:17 (specimen) EDT AM EDT Resulting Agency Comment Spec In Lab / APD Ary [facility]AT[facility] ORDERABLES Performing Organization Address City/State/ZIP Code Phon e Number LABORATORY [address] [place], [place] [address] (ABNORMAL) Hemogram (02/28/2019 6:28 AM EDT) P athologist Signature WBC 9.5 4.0 - 9.5 x10(3)/mcL LABORATORY RBC 4.27 (L) 4.58 - DAY 5.54 LABORATORY x10(6)/mcL Hemoglobin 13.1 (L) 13.7 - DAY 16.5 gm/dL LABORATORY Hematocrit 37.1 (L) 40.5 - 48.5 % LABORATORY MCV 86.9 82.9 - 93.1 fL LABORATORY MCH 30.7 27.5 - DAY 32.1 pg LABORATORY MCHC 35.3 32.0 - 35.7 gm/dL LABORATORY Platelets 185 145 - 357 DAY x10(3)/mcL LABORATORY RDWSD 39.4 36.0 - DAY 45.0 fL LABORATORY RDWCV 12.4 11.4 - 13.8 % LABORATORY MPV 10.9 7.6 - 12.9 [place] LAB[facility] Specimen Anatomical Collection Method Collection Time Receive d Time (Source) Location / / Volume Laterality Blood specimen 02/28/2019 6:28 AM 019 7:17 (specimen) EDT AM EDT Resulting Agency Comment Spec In Lab / APD Ary [facility] ORDERABLES Performing Organization Address City/State/ZIP Code Phon e Number LABORATORY [address] [place], [place] [address] (ABNORMAL) Basic Metabolic Panel (non-fasting) (02/28/2019 6:28 AM EDT) athologist Signature Glucose Lvl 166 65 - 199 mg/dL LABORATORY Comment: Diabetes: >=200 mg/dL plus symp toms BUN 23 (H) 10 - 20 mg/dL L ABORATORY Creatinine 0.90 0.80 - 1.50 mg/dL LABORATORY Sodium 139 135 - 145 mmol/L LABORATORY Potassium 4.6 3.5 - 5.0 mmol/L LABORATORY Comment: Please note: ??Patients with WBC >100,00 0 may have falsely elevated Potassium levels. ??For accurate Potassium quantif ication in these patients send serum separator tube (gold top) for subsequent determinations. ??Contact the Clinical Chemistry Laboratory if there are any qu estions. Chloride 102 98 - 107 mmol/L LABORATORY CO2 25 22 - 31 mmol/L LABORATORY Anion Gap 12 5 - 15 mmol/L L ABORATORY Calcium 9.8 8.5 - 10.5 mg/dL LABORATORY Estimated GFR 98 >=60 mL/min/1.73 m?? LABORATORY Comment: The eGFR was calculated using the CKD-EP I equation. As with all creatinine based estimates of kidney function, eGFR values calculated with the CKD-EPI equation are not accurate in patients wi th acute kidney failure, extremes of body mass or the acutely ill. http://[employer]/[facility] eGFR 113 >=60 mL/min/1.73 m?? LABORATORY Comment: The eGFR was calculated using the CKD-EP I equation. As with all creatinine based estimates of kidney function, eGFR values calculated with the CKD-EPI equation are not accurate in patients wi th acute kidney failure, extremes of body mass or the acutely ill. http://[employer]/[facility] Specimen Anatomical Collection Method Collection Time Receive d Time (Source) Location / / Volume Laterality Blood specimen 02/28/2019 6:28 AM 019 7:17 (specimen) EDT AM EDT Resulting Agency Comment Spec In Lab / APD Mesfin Leach MD CHEMISTRY ORDERABLES Performing Organization Address City/State/ZIP Code Phon e Number LABORATORY [address] [place], [place] [address] (ABNORMAL) Differential, Automated (02/27/2019 6:06 AM EDT) [facility] Method Time Signature Neutrophils % 91.2 % LABORATORY Neutr Abs (ANC) 10.25 (H) 1.70 - DAY 6.10 LABORATORY x10(3)/mc L Lymphocytes % 5.3 % LABORATORY Lymphocytes Abs 0.6 (L) 0.9 - 3.2 DAY x10(3)/mc LABORATORY L Monocytes % 3.2 % LABORATORY Monocyte Abs 0.4 0.3 - 0.9 DAY x10(3)/mc LABORATORY L Eosinophils % 0.0 % LABORATORY Eosinophils Abs 0.0 0.0 - 0.4 DAY x10(3)/mc LABORATORY L Basophils % 0.1 % LABORATORY Basophils Abs 0.0 0.0 - 0.1 DAY x10(3)/mc LABORATORY L Immature Gran % 0.20 % LABORATORY Comment: Immature granulocytes(IG's)percentage an d absolute count will include metamyelocytes, myelocytes, and promyelo cytes. Blood smears from CBCs yielding IG's will be scanned manually for juan antonio sheehan. If this scan disagrees with the automated IG or if promyelocytes are not ed, a manual differential will be performed. Paula Gran Abs 0.02 0.00 - 0.04 x10(3)/mcL LABORATORY Specimen Anatomical Collection Method Collection Time Receive d Time (Source) Location / / Volume Laterality Blood specimen 02/27/2019 6:06 AM 019 6:43 (specimen) EDT AM EDT Resulting Agency Comment Spec In Lab / APD Ary [facility]AT[facility] ORDERABLES Performing Organization Address City/[facility] Phon e Number LABORATORY [address] [place], [place] [address] (ABNORMAL) Hemogram (02/27/2019 6:06 AM EDT) P athologist Signature WBC 11.2 (H) 4.0 - 9.5 DAY x10(3)/mcL LABORATORY RBC 4.28 (L) 4.58 - DAY 5.54 LABORATORY x10(6)/mcL Hemoglobin 13.2 (L) 13.7 - DAY 16.5 gm/dL LABORATORY Hematocrit 37.0 (L) 40.5 - 48.5 % LABORATORY MCV 86.4 82.9 - 93.1 fL LABORATORY MCH 30.8 27.5 - 32.1 pg LABORATORY MCHC 35.7 32.0 - 35.7 gm/dL LABORATORY Platelets 195 145 - 357 x10(3)/mcL LABORATORY RDWSD 39.2 36.0 - 45.0 fL LABORATORY RDWCV 12.4 11.4 - 13.8 % LABORATORY MPV 11.0 7.6 - 12.9 fL LABORATORY Specimen Anatomical Collection Method Collection Time Receive d Time (Source) Location / / Volume Laterality Blood specimen 02/27/2019 6:06 AM 019 6:43 (specimen) EDT AM EDT Resulting Agency Comment Spec In Lab / APD Ary [facility] ORDERABLES Performing Organization Address City/[facility]/ZIP Code Phon e Number LABORATORY [address] [place], [place] [address] Basic Metabolic Panel (non-fasting) (02/27/2019 6:06 AM EDT) P athologist Signature Glucose Lvl 154 65 - 199 [facility] mg/dL LAB[facility]ATORY Comment: Diabetes: >=200 mg/dL plus symp toms BUN 16 10 - 20 mg/dL [facility] L [facility] Creatinine 0.93 0.80 - 1.50 mg/dL [facility] Sodium 139 135 - 145 mmol/L [facility] Potassium 4.6 3.5 - 5.0 mmol/L [facility] Comment: Please note: ??Patients with WBC >100,00 0 may have falsely elevated Potassium levels. ??For accurate Potassium quantif ication in these patients send serum separator tube (gold top) for subsequent determinations. ??Contact the Clinical Chemistry Laboratory if there are any qu estions. Chloride 105 98 - 107 mmol/L [facility] CO2 24 22 - 31 mmol/L [facility] Anion Gap 10 5 - 15 mmol/L [facility] Calcium 9.2 8.5 - 10.5 mg/dL [facility] Estimated GFR 94 >=60 mL/min/1.73 m?? [facility] Comment: The eGFR was calculated using the CKD-EP I equation. As with all creatinine based estimates of kidney function, eGFR values calculated with the CKD-EPI equation are not accurate in patients wi th acute kidney failure, extremes of body mass or the acutely ill. http://[employer]/[facility] eGFR 109 >=60 mL/min/1.73 m?? [facility] Comment: The eGFR was calculated using the CKD-EP I equation. As with all creatinine based estimates of kidney function, eGFR values calculated with the CKD-EPI equation are not accurate in patients wi th acute kidney failure, extremes of body mass or the acutely ill. http://[employer]/[facility]f Specimen Anatomical Collection Method Collection Time Receive d Time (Source) Location / / Volume Laterality Blood specimen 02/27/2019 6:06 AM 019 6:43 (specimen) EDT AM EDT Resulting Agency Comment Spec In Lab / APD Mesfin Leach MD CHEMISTRY ORDERABLES Performing Organization Address City/State/ZIP Code Phon e Number [facility] [address] [place], [place] [address] SCAN DOC: TELEMETRY STRIPS (02/26/2019 12:00 AM EDT) Narrative 02/26/2019 12:00 AM EDT This result has an attachment that is no t available. Ordered by an unspecified provider. Scanning Provider MEDIA MGR SCAN EXT ORDR/RSLT documented in this encounter Visit Diagnoses Not on filedocumented in this encounter Admitting Diagnoses Diagnosis Status post total right knee replacement documented in this encounter Administered Medications Inactive Administered Medications - up to 3 most recent administrations Medication Order MAR Action Action Date Dose Rate Site acetaminophen (TYLENOL) tablet 500 Given 02/28/2019 7:27 AM EDT 500 mg mg 500 mg, Oral, EVERY 4 HOURS SCHEDULED, First dose on Mon02/26/19 at 2000, Until Discontinued, Maximum dose of acetaminophen is 4000 mg from all sources in 24 hours., Routine Given 02/28/2019 4:24 AM EDT 500 mg Given 02/28/2019 12:09 AM EDT 500 mg aspirin EC tablet 81 mg Given 02/28/2019 8:55 AM EDT 81 mg 81 mg, Oral, 2 TIMES DAILY, First dose on Mon02/26/19 at 2100, Until Discontinued, Routine Given 02/27/2019 9:13 PM EDT 81 mg Given 02/27/2019 9:07 AM EDT 81 mg bacitracin injection Given 02/26/2019 3:35 PM 50,000 Units 19- Surgi joseluis Site ONCE PRN, Starting on Mon EDT 02/26/19 at 1535, Until Keiko 02/28/19 at 1344, Intra-Operative (Intra-Procedure), Routine BUpivacaine-EPINEPHrine 0.25 Given 02/26/2019 3:35 PM 50 mg 19- Surgical Site %-1:200,000 injection EDT ONCE PRN, Starting on Mon02/26/19 at 1535, Until Mon02/28/19 at 1344, Intra-Operative (Intra-Procedure), Routine cloNIDine injection Given 02/26/2019 3:36 PM EDT 10 mcg 19- S urgical Site ONCE PRN, Starting on Mon02/26/19 at 1536, Until Keiko 02/28/19 at 1344, Intra-Operative (Intra-Procedure), Routine dexamethasone (DECADRON) injection 4 mg Given 02/28/2019 8:57 AM EDT 4 mg 4 mg, Intravenous, 2 TIMES DAILY, First dose on Mon02/26/19 at 2100, Until Discontinued, Routine Given 02/27/2019 9:14 PM EDT 4 mg Given 02/27/2019 9:06 AM EDT 4 mg gabapentin (NEURONTIN) capsule 600 mg Given 02/27/2019 9:14 PM EDT 600 mg 600 mg, Oral, NIGHTLY, First dose on Mon02/26/19 at 2100, Until Discontinued, Routine Given 02/26/2019 8:37 PM EDT 600 mg HYDROmorphone (DILAUDID) injection 0.5-1 mg 0.5-1 mg, Intravenous, EVERY 3 HOURS PRN , Starting on Mon02/26/19 at 1845, Until [facility] 02/28/19 at 1344, Pain, Give 0.5 mg for m ild to moderate pain (1-6), 1 mg for severe pain (7-10) Patient may have IV if unable to take PO, Routine HYDROmorphone (DILAUDID) tablet 2-4 mg Given 02/28/2019 4:24 AM EDT 2 mg 2-4 mg, Oral, EVERY 3 HOURS PRN, Starting on Mon02/26/19 at 1845, Until Keiko 02/28/19 at 1344, Pain, Give 2 mg for mild to moderate pain (1-6), 4 mg for severe pain (7-10) Patient may have IV if unable to take PO, Routine Given 02/27/2019 3:47 AM EDT 2 mg ketorolac (TORADOL) injection 30 mg Given 02/28/2019 8:56 AM EDT 30 mg 30 mg, Intravenous, EVERY 6 HOURS, 20 doses, First dose on Mon02/26/19 at 2130, Last dose on Mon03/03/19 at 1530, To be begin 6 hours post last dose given in OR Case, Recovery (Recovery-Hospital Unit), Routine Given 02/28/2019 4:25 AM EDT 30 mg Given 02/27/2019 9:13 PM EDT 30 mg ketorolac (TORADOL) injection Given 02/26/2019 3:36 PM EDT 30 mg 19- S urgical Site ONCE PRN, Starting on Mon02/26/19 at 1536, Until Keiko 02/28/19 at 1344, Intra-Operative (Intra-Procedure), Routine lactobacillus with pectin 1 capsule Given 02/28/2019 8:57 AM EDT 1 capsule 1 capsule, Oral, 2 TIMES DAILY, First dose on Mon02/26/19 at 2100, Until Discontinued, Routine Given 02/27/2019 9:13 PM EDT 1 capsule Given 02/27/2019 9:07 AM EDT 1 capsule morphine 10 mg/mL injection Given 02/26/2019 3:36 PM EDT 10 mg 19- S urgical Site ONCE PRN, Starting on Mon02/26/19 at 1536, Until Keiko 02/28/19 at 1344, Intra-Operative (Intra-Procedure), Routine ondansetron (ZOFRAN) injection 4 mg 4 mg, Intravenous, EVERY 8 HOURS PRN, Starting on Mon02/26/19 at 1845, Until Keiko 02/28/19 at 1344, Nausea, Vomiting, May repeat times on e in 30 minutes if ineffective. If multiple antiemetics are ordered, u se ondansetron first, Recovery (Recovery-Hospital Unit), Routine ondansetron (ZOFRAN) tablet 4 mg 4 mg, Oral, EVERY 8 HOURS PRN, Starting on Mon02/26/19 at 1845, Until Keiko 02/28/19 at 1344, Nausea, Vomiting, If multiple antiemetics are ordered, use ondansetron first. PO Preferred. If patient unable to take PO, may give IV if ordered. May repeat times one in 45 minutes if ineffe ctive., Recovery (Recovery-Hospital Unit), Routine pantoprazole (PROTONIX) tablet 40 mg Given 02/28/2019 8:56 AM EDT 40 mg 40 mg, Oral, DAILY, First dose on Mon02/27/19 at 0900, Until Discontinued, DO NOT CRUSH OR OPEN, Routine Given 02/27/2019 9:06 AM EDT 40 mg senna-docusate (PERICOLACE) 8.6-50 mg per Given 02/28/2019 8 :56 AM EDT 1 tablet tablet 1 tablet 1 tablet, Oral, 2 TIMES DAILY, First dose on Mon02/26/19 at 2100, Until Discontinued, Routine Given 02/27/2019 9:12 PM EDT 1 tablet Given 02/27/2019 9:07 AM EDT 1 tablet sodium chloride 0.9 % (flush) flush 3 mL Given 02/28/2019 9:02 AM EDT 3 mLs 3 mL, Intravenous, EVERY 12 HOURS SCHEDULED (2 times per day), First dose on Mon02/26/19 at 2100, Until Discontinued, Routine Given 02/27/2019 9:00 PM EDT 3 mLs Given 02/27/2019 9:07 AM EDT 3 mLs zolpidem (AMBIEN) tablet 5 mg Given 02/28/2019 12:18 AM EDT 5 mg 5 mg, Oral, NIGHTLY PRN, Starting on Mon02/26/19 at 1845, Until Mon02/28/19 at 1344, Sleep, Routine documented in this encounter Active and Recently Administered Medications Times are shown in EDT. Scheduled Medication Order 02/26/2019 02/27/2019 02/28/2019 acetaminophen (TYLENOL) tablet 500 mg 1931 (Given - Pr ovider: Chely Gillespie RN)2343 (Given - Provider: Chely Gillespie RN) 0340 (Given - Provider: Chely Gillespie RN)0732 (Given - Provider: Melanie Randall, ANTONIO)1157 (Given - Provider: Melanie Randall RN)1600 (Not Given - Provider: Melanie Randall RN - Reason: Patient/family refused) 0009 (Given - Provider: Michela Morales, ANTONIO)0424 (Given - Provider: Michela Morales, ANTONIO)0727 (Given - Provider: Melanie Randall, ANTONIO) 500 mg, Oral, EVERY 4 HOURS SCHEDULED, F irst dose on Mon02/26/19 at 2000, Until Discontinued, Maximum dose of acetaminophen is 4000 mg from all sources in 24 hours., Routine 2111 (Given - Provider: Nely Garnett) aspirin EC tablet 81 mg 2036 (Given - Provider: Chely Gillespie RN) 09 (Given - Provider: Melanie Randall RN)2112 (Given - Provider: Ramesh Myers, RN) 0855 (Given - Provider: Melanie Randall, ANTONIO) 81 mg, Oral, 2 TIMES DAILY, First dose o n Mon02/26/19 at 2100, Until Discontinued, Routine ceFAZolin (ANCEF) 2g in dextrose 5% 100mL (CANCELED) 1 441 (Given - Provider: Carrington Meraz CRNA)1715 (Not Given - Provider: Marcellus rGeen RN - Reason: Per MD Order) 2 g, Intravenous, EVERY 4 HOURS, First d ose on Mon02/26/19 at 1315, Until Discontinued, Administer over 30 Minutes, Administer over 30 minutes, Redose after 4 hours., Intra-Operative (Intra-Procedure), Indication for (Active or Suspected): Prophylaxis ceFAZolin (ANCEF) 2g in dextrose 5% 100mL (COMPLETED) 1931 (New Bag - Provider: Chely Gillespie RN)2001 (Stopped - Provider: Chely Gillespie, ANTONIO) 0347 (New Bag - Provider: Chely Gillespie, ANTONIO)0417 (Stopped - Provider: Chely Gillespie RN)1045 (New Bag - Provider: Melanie Randall, ANTONIO)1115 (Stopped - Provider: Melanie Randall, ANTONIO) 2 g, Intravenous, EVERY 8 HOURS, 3 doses , First dose on Mon02/26/19 at 1900, Last dose on Mon02/27/19 at 1100, Administer over 30 Minutes, Adjust to 4 hours from intraoperative dose. * Beta-lactam based antibiotics (eg. Ampicillin, Cefazolin, Aztreonam) should be administered within 4 hours of the preceding intraoperative dose., Indication for (Active or Suspected): Prophylaxis dexamethasone (DECADRON) injection 4 mg 2036 (Given - Provider: Chely Gillespie RN) 09 (Given - Provider: Melanie Randall, ANTONIO)2113 (Given - Provider: Ramesh Myers, ANTONIO) 0857 (Given - Provider: Melanie Randall, ANTONIO) 4 mg, Intravenous, 2 TIMES DAILY, First dose on Mon02/26/19 at 2100, Until Discontinued, Routine gabapentin (NEURONTIN) capsule 600 mg 2036 (Given - Pr ovider: Chely Gillespie RN) 2113 (Given - Provider: Ramesh Myers RN) 600 mg, Oral, NIGHTLY, First dose on Mon02/26/19 at 2100, Until Discontinued, Routine HYDROmorphone (DILAUDID) tablet 2 mg (COMPLETED) 1724 (Given - Provider: Amy Lopez RN - Comment: override required pyxis profile not showing medication) 2 mg, Oral, ONCE, 1 dose, Mon02/26/19 at 1730, Single dose when taking PO, PACU Recovery, Routine ketorolac (TORADOL) injection 30 mg 2037 (Given - Prov ider: Chely Gillespie RN) 0340 (Given - Provider: Chely casillas RN)0906 (Given - Provider: Melanie Randall RN)1454 (Given - Provider: Melanie Randall RN)2112 (Given - Provider: Ramesh Myers, ANTONIO) 0425 (Given - Provider: Michela Morales RN)0856 (Given - Provider: Melanie Randall, ANTONIO) 30 mg, Intravenous, EVERY 6 HOURS, 20 do ses, First dose on Mon02/26/19 at 2130, Last dose on Mon03/03/19 at 1530, To be begin 6 hours post last dose given in OR Case, Recovery (Recovery-Hospital Unit), Routine lactobacillus with pectin 1 capsule 2036 (Given - Prov ider: Chely Gillespie RN) 0907 (Given - Provider: Melanie Randall RN)2112 (Given - Provider: Ramesh Myers, ANTONIO) 0857 (Given - Provider: Melanie Randall, ANTONIO) 1 capsule, Oral, 2 TIMES DAILY, First do se on Mon02/26/19 at 2100, Until Discontinued, Routine pantoprazole (PROTONIX) tablet 40 mg 090 6 (Given - Provider: Melanie Randall RN) 0856 (Given - Provider: Melanie Randall RN) 40 mg, Oral, DAILY, First dose on 06/08 at 0900, Until Discontinued, DO NOT CRUSH OR OPEN, Routine senna-docusate (PERICOLACE) 8.6-50 mg per tablet 1 tab let 2036 (Given - Provider: Chely Gillespie RN) 09 (Given - Provider: Melanie Randall, ANTONIO)2111 (Given - Provider: Ramesh Myers RN) 0856 (Given - Provider: Melanie Randall, ANTONIO) 1 tablet, Oral, 2 TIMES DAILY, First dos e on Mon02/26/19 at 2100, Until Discontinued, Routine sodium chloride 0.9 % (flush) flush 3 mL 2121 (Given - Provider: Chely Gillespie RN) 09 (Given - Provider: Melanie Randall RN)2099 (Given - Provider: Michela Morales RN) 09 (Given - Provider: Melanie Randall, ANTONIO) 3 mL, Intravenous, EVERY 12 HOURS SCHEDU LED (2 times per day), First dose on Mon02/26/19 at 2100, Until Discontinued, Routine Continuous Medication Order 02/26/2019 02/27/2019 02/28/2019 lactated ringers infusion (CANCELED) 1318 (New Bag - P rovider: Amy Lopez RN)1434 (New Bag - Provider: Carrington Meraz CRNA)1505 (Anesthesia Volume Adjustment - Provider: Carrington Meraz CRNA)1605 (Anesthesia Volume Adjustment - Provider: Carrington Meraz CRNA) 1,000 mL, at 50 mL/hr, Intravenous, CONT INUOUS, Starting Mon02/26/19 at 1300, Until Mon02/26/19 at 1813, Day of Surgery (Day of Procedure) 1640 (Anesthesia Volume Adjustment - Provider: Carrington Meraz CRNA) lactated ringers infusion 1914 (Not Given - Provider: Chely Gillespie RN - Reason: See comment - Comment: LR still infusing) 1,000 mL, at 100 mL/hr, Intravenous, CON TINUOUS, Starting Mon02/26/19 at 1915, Until Keiko 02/28/19 at 1344 PRN Medication Order 02/26/2019 02/27/2019 02/28/2019 bacitracin injection (CANCELED) 1535 (Given - Provider: Mesfin maldonado MD) ONCE PRN, Starting 02/26/19 at 1535, U ntil Keiko 02/28/19 at 1344, Intra- Operative (Intra-Procedure), Routine bisacodyl (DULCOLAX) suppository 10 mg 10 mg, Rectal, ONCE PRN, 1 dose, Startin g 02/26/19 at 1845, Until Keiko 02/28/19 at 1344, Constipation, Administer if no bowel movement within 72 hours and Miralax given with no results If multiple PRN b owel medications ordered, start with Brock alax, then bisacodyl. Multiple medications may be given concomitantly for constipation., Routine BUpivacaine-EPINEPHrine 0.25 %-1:200,000 injection (CA NCELED) 1535 (Given - Provider: Mesfin Leach MD) ONCE PRN, Starting 02/26/19 at 1535, U ntil Keiko 02/28/19 at 1344, Intra- Operative (Intra-Procedure), Routine cloNIDine injection (CANCELED) 1536 (Given - Provider: Mesfin garcía MD) ONCE PRN, Starting 02/26/19 at 1536, U ntil Keiko 02/28/19 at 1344, Intra- Operative (Intra-Procedure), Routine HYDROmorphone (DILAUDID) injection 0.5-1 mg(Linked Group 1) 0347 (See Alternative - Provider: Chely Gillespie, ANTONIO) 0424 (See Alternative - Provider: Michela Morales, ANTONIO) 0.5-1 mg, Intravenous, EVERY 3 HOURS PRN , Starting 02/26/19 at 1845, Until Keiko 02/28/19 at 1344, Pain, Give 0.5 mg for mild to moderate pain (1-6), 1 mg for severe pain (7-10) Patient may have IV if unable to take PO, Routine HYDROmorphone (DILAUDID) tablet 2-4 mg(Linked Group 1) 0347 (Given - Provider: Chely Gillespie, RN) 0424 (Given - Provider: Michela Morales, ANTONIO) 2-4 mg, Oral, EVERY 3 HOURS PRN, Startin g e 02/26/19 at 1845, Until Keiko 02/28/19 at 1344, Pain, Give 2 mg for mild to moderate pain (1-6), 4 mg for severe pain (7-10) Patient may have IV if unable to take PO, Routine ketorolac (TORADOL) injection (CANCELED) 1535 (Given - Provider: Mesfin Leach MD - Comment: infiltration) ONCE PRN, Starting e 02/26/19 at 1536, U ntil Keiko 02/28/19 at 1344, Intra- Operative (Intra-Procedure), Routine LORazepam (ATIVAN) injection 0.5 mg 0.5 mg, Intravenous, EVERY 6 HOURS PRN, Starting e 02/26/19 at 1845, Until Keiko 02/28/19 at 1344, Anxiety, If medication ordered subcutaneously, do not administer more than 2 mL as a single injection., Routine magnesium hydroxide (Milk of Magnesia) (240 mg/mL) oral liquid 1 0 mL 10 mL, Oral, ONCE PRN, 1 dose, Starting e 02/26/19 at 1845, Until Keiko 02/28/19 at 1344, Constipation, Administer if needed per patient's routine or if no bowel movement within 72 hours If multiple PRN becca wel medications ordered, start with Stephani lax, then bisacodyl then Milk of Magnesia, Routine morphine 10 mg/mL injection (CANCELED) 1535 (Given - P rovider: Mesfin Leach MD - Comment: infiltration) ONCE PRN, Starting e 02/26/19 at 1536, U ntil Ekiko 02/28/19 at 1344, Intra- Operative (Intra-Procedure), Routine ondansetron (ZOFRAN) injection 4 mg(Linked Group 2) 4 mg, Intravenous, EVERY 8 HOURS PRN, St arting e 02/26/19 at 1845, Until Keiko 02/28/19 at 1344, Nausea, Vomiting, May repeat times one in 30 minutes if ineffective. If multiple antiemetics are ordered, use ondansetron first, Recovery (Recovery-Hospital Unit), Rou pollo ondansetron (ZOFRAN) tablet 4 mg(Linked Group 2) 4 mg, Oral, EVERY 8 HOURS PRN, Starting Mon02/26/19 at 1845, Until Keiko 02/28/19 at 1344, Nausea, Vomiting, If multiple antiemetics are ordered, use ondansetron first. PO Preferred. If patient unable to take PO, may give IV if ordered. May repeat times one in 45 minutes if ineffective., Recovery (Recovery-Hospital Unit), Routine polyethylene glycol (MIRALAX) packet 17 g 17 g, Oral, DAILY PRN, Starting Mon at 1845, Until Keiko 02/28/19 at 1344, Constipation, Start Post OP day 1 if no BM, Routine sodium chloride 0.9 % (flush) flush 5-20 mL 5-20 mL, Intravenous, EVERY 1 MIN PRN, S tarting Mon02/26/19 at 1845, Until Keiko 02/28/19 at 1344, flush, Flush pertains to all indwelling lines. Flush per protocol found in the job aid using the link provided on this medication record., Routine zolpidem (AMBIEN) tablet 5 mg 00 18 (Given - Provider: Michela Morales RN) 5 mg, Oral, NIGHTLY PRN, Starting 05/09 at 1845, Until Keiko 02/28/19 at 1344, Sleep, Routine Linked Groups Order Group 1: HYDROmorphone (DILAUDID) tablet 2-4 mgJump to med 2-4 mg, Oral, EVERY 3 HOURS PRN, Startin g Mon02/26/19 at 1845, Until Keiko 02/28/19 at 1344, Pain
Give 2 mg for mild to moderate pain (1-6), 4 mg for severe pain (7-10) Patient may have IV if unable to take PO
Routine Or HYDROmorphone (DILAUDID) injection 0.5-1 mgJump to med 0.5-1 mg, Intravenous, EVERY 3 HOURS PRN , Starting Mon02/26/19 at 1845, Until Keiko 02/28/19 at 1344, Pain
Give 0.5 mg for mild to moderate pain (1-6), 1 mg for severe pain (7-10) Patient may have IV if unable to take PO
Routine Group 2: ondansetron (ZOFRAN) tablet 4 mgJump to med 4 mg, Oral, EVERY 8 HOURS PRN, Starting 02/26/19 at 1845, Until Keiko 02/28/19 at 1344, Nausea, Vomiting
If multiple antiemetics are ordered, use ondansetron first. PO Preferred. If patient unable to take PO, may give I V if ordered. May repeat times one in 45 minutes if ineffective.
Recovery (Recovery-Hospital Unit), Routine Or ondansetron (ZOFRAN) injection 4 mgJump to med 4 mg, Intravenous, EVERY 8 HOURS PRN, St arting 02/26/19 at 1845, Until Keiko 02/28/19 at 1344, Nausea, Vomiting
May repeat times one in 30 minutes if ineffective. If multiple antieme tics are ordered, use ondansetron first* *
Recovery (Recovery-Hospital Unit), Routine documented in this encounter Care Teams Offset Press Operator Apprentice Relationship Specialty Start Date End Date Jermain Montalvo DO PCP - General 01/28/[address] [place] [address] documented as of this encounter
--- OUTSIDE RECORDS SUMMARY | 2022-03-08 00:35 | XMS_ITS | Encounter Summary ---
:1965 Author Organization [facility] [place] [address] Care Team Providers Name Role Phone Jermain Montalvo DO Primary Care Provider Encounter Details Date Type Department Care Team Description 12/05/2018 Interpretation Only Ary Gomez , [facility] [address] [place] [address] [phone] [place], [place] [address] (Wo rk) Social History Tobacco Use Types Packs/Day Years Used Date Never Smoker Sex Assigned at Date Recorded Not on file documented as of this encounter Plan of Treatment Upcoming Encounters Date Type Specialty Care Team Description 03/15/2022 Procedure visit Dermatology Olamide Grayson MD [facility] [address] [place], [place] [address] (Wo rk) documented as of this encounter Procedures Procedure Name Priority Date/Time Associated Diagnosis Comme nts XR KNEE AP & LAT Routine 12/05/2018 11:36 AM Resu lts for this RIGHT EDT procedure are i n the results section. documented in this encounter Results XR Knee 1-2 Views Right (Generic) (12/05/2018 11:36 AM EDT) Anatomical Region Laterality Modality Knee Right Radiographic Imaging Specimen (Source) Anatomical Collection Method Collection Time Re ceived Time Location / / Volume Laterality 12/05/2018 11:36 AM EDT Impressions 12/05/2018 12:07 PM EDT Severe narrowing the medial joint space right knee. Mild spurring at the inferior articular margin of the patella Thank you for letting us participate in the care of this patient. For questions regarding this report, please contact th e number below. ? Narrative 12/05/2018 12:07 PM EDT EXAMINATION: KNEE -RT (1-2VWS) CLINICAL HISTORY: ASSESS RT KNEE PAIN TECHNIQUE: 3 views right knee COMPARISON: None FINDINGS: There is no evidence for joint effusion, the patella position is good with spurring at the inferior articular celeste n. There is narrowing of the medial joint space with sclerotic change along the medial tibial total. No joint effusion is seen. No definite loose body is seen Procedure Note Kobe Dorman MD - 12/05/2018Format ting of this note might be different from the original. EXAMINATION: KNEE -RT (1-2VWS) CLINICAL HISTORY: ASSESS RT KNEE PAIN TECHNIQUE: 3 views right knee COMPARISON: None FINDINGS: There is no evidence for joint effusion, the patella position is good with spurring at the inferior articular celeste n. There is narrowing of the medial joint space with sclerotic change along the medial tibial total. No joint effusion is seen. No definite loose body is seen IMPRESSION Severe narrowing the medial joint space right knee. Mild spurring at the inferior articular margin of the patella Thank you for letting us participate in the care of this patient. For questions regarding this report, please contact e number below. Ary LEPE IMG DX ORDERABLES documented in this encounter Visit Diagnoses Not on filedocumented in this encounter Care Teams Base Ply Hand Relationship Specialty Start Date End Date Jermain Montalvo DO PCP - General 01/28/[address] [place] [address] documented as of this encounter
--- OUTSIDE RECORDS SUMMARY | 2022-03-08 00:35 | XMS_ITS | Encounter Summary ---
:1965 Author Organization [facility] [place] [address] Care Team Providers Name Role Phone Jermain Montalvo DO Primary Care Provider Encounter Details Date Type Department Care Team Description 03/05/2019 Telephone Orthopaedics at [facility] Mesfin Leach MD [address] [facility] [place] [address] [phone] [place], [place] [address] (Wo rk) Social History Tobacco Use Types Packs/Day Years Used Date Never Smoker Smokeless Tobacco: Never Used Alcohol Use Standard Drinks/Week Comments Not Currently 0 (1 standard drink = 0.6 oz pure alcoho l) Sex Assigned at Date Recorded Not on file documented as of this encounter Miscellaneous Notes Telephone Encounter - Fany Enriquez RN - 03/05/2019 1:06 PM EDT Checo Sanchez is contacted by the office today to follow up with then and check in to see how they're doing since their recent surgery. Checo Sanchez is status post right total knee replacement whichwas performed on 02/26/19 by Mesfin Leach MD . The patient states he is doing very well. He previously had his other knee replaced. He is doing outpatient physical therapy. He did not go home with VNA. His pain level is low and he has only taken 5-6 tabs of Dilaudid and doesn't feel he will need more. He is taking tylenol for pain. He is also taking ASA 81mg twice daily, meloxicam as directed, and states he did end up taking the neurontin as he feels better when taking it with food. He is icing frequently. He has changed his dressing. He is ambulatory with his walker but feels he won't need it much longer. The patient states that he does not have questions regarding his post operative instructions. The patient is advised to call the clinic with any concerns or questions that may arise. The patienthas a follow up appointment scheduled for 03/29/19. documented in this encounter Plan of Treatment Upcoming Encounters Date Type Specialty Care Team Description 03/15/2022 Procedure visit Dermatology Olamide Grayson MD [facility] [address] [place], [place] [address] (Wo rk) documented as of this encounter Visit Diagnoses Not on filedocumented in this encounter Care Teams Silver [employer]are Assembler Relationship Specialty Start Date End Date Jermain Montalvo DO PCP - General 01/28/[address] [place] [address] documented as of this encounter
--- OUTSIDE RECORDS SUMMARY | 2022-03-08 00:35 | XMS_ITS | Encounter Summary ---
:1965 Author Organization [facility] [place] [address] Care Team Providers Name Role Phone Jermain Montalvo DO Primary Care Provider Encounter Details Date Type Department Care Team Description 04/04/2018 Abstract Luisa Gross Conversion Apd Conversion, Flowsheet Results Provider, [place] [address] Social History Tobacco Use Types Packs/Day Years Used Date Never Smoker Sex Assigned at Date Recorded Not on file documented as of this encounter Last Filed Vital Signs Vital Sign Reading Time Taken Comments Blood Pressure 130/86 04/04/2018 1:58 Sourced from [facility] PM EDT Conversion Pulse - - Temperature - - Respiratory Rate - - Oxygen Saturation - - Inhaled Oxygen - - Concentration Weight 95.8 kg (211 lb 3.2 04/04/2018 1:58 Sourced from [facility] oz) PM EDT Conversion Height 185 cm (6' 0.84) 04/04/2018 1:58 Sourced from [facility] PM EDT Conversion Body Mass Index 27.99 04/04/2018 1:58 PM EDT documented in this encounter Plan of Treatment Upcoming Encounters Date Type Specialty Care Team Description 03/15/2022 Procedure visit Dermatology Olamide Grayson MD [facility] [address] [place], [place] [address] (Wo rk) documented as of this encounter Visit Diagnoses Not on filedocumented in this encounter Care Teams Clinical Cytogeneticist Relationship Specialty Start Date End Date Jermain Montalvo DO PCP - General 01/28/[address] [place] [address] documented as of this encounter
--- OUTSIDE RECORDS SUMMARY | 2022-03-08 00:35 | XMS_ITS | Encounter Summary ---
:1965 Author Organization [facility] Address [address] [place] [address] Care Team Providers Name Role Phone Jermain Montalvo DO Primary Care Provider Reason for Visit Reason Comments Skin Check Encounter Details Date Type Department Care Team Description 08/11/2014 Follow-Up Dermatology at Jaxson Waddell MD [place] (actinic keratosis); [facility] History of nonmelanoma skin cancer; [address] ALMANZAR (seborrheic keratosis) [place] [address] [facility] [phone] RD-DERMATOLOGY [place] [phone] (Wo rk) Social History Tobacco Use Types Packs/Day Years Used Date Never Smoker Sex Assigned at Date Recorded Not on file documented as of this encounter Progress Notes Anastasiia Price MD - 08/11/2014 8:38 AM EST I was the supervising physician working with dermatology resident Dr. Lazcano in the dermatology clinic during this patient visit. The level of Resident supervision for this patient visit was indirect supervision with direct supervision immediately available. (definition: [facility]ME Policy Statement [facility], Supervision of Graduate Medical Trainees) I was immediately available to Dr. Lazcano for questions and discussion regarding this visit. I have reviewed her encounter note detailsand level of service. ANASTASIIA PRICE MD Staff Physician Siobhan Lazcano MD - 08/11/2014 8:04 AM EST DERMATOLOGY - ESTABLISHED PATIENT FOLLOW-UP Date of service: 08/11/2014 Checo Sanchez : 1965 Dermatology Resident Note: Siobhan Lazcano MD Chief Problem: Chief Complaint Patient presents with ??? Skin Check Mr. Checo Sanchez is a 49 y.o. male. This is an established patient, last seen by myself on 12/04/2013. HPI: Mr. Sanchez presents for skin cancer evaluation. he is concerned with scaly red lesion on right cheekand right side of nose. He has a few new rough spots on his arms and back. Skin History: ?? BCC-left chest/excised 01/2013, outside facility ?? seborrheic keratosis ?? actinic keratosis ?? Tinea Versicolor ?? Guttate hypomelanosis lateral and posterior neck ?? Dermatofibroma-right lateral knee Medical History: There is no problem list on file for this patient. Medications: Current Outpatient Prescriptions Medication Sig Dispense Refill ??? gemfibrozil (LOPID) 600 mg tablet Take 600 mg by mouth 2 times daily (before meals). ??? omeprazole (PRILOSEC) 20 mg capsule Take 40 mg by mouth daily. No current facility-administered medications for this visit. 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 - Skin: As per HPI; no other skin concerns. Examination: - Constitutional: Patient was alert, well-appearing and in no noticeable distress. - Skin: Examination of skin from the waist up was performed. This includes examination of the skin of the face, ears, neck, chest, axillae, left and right upper extremities, hands, back, and abdomen. Specific skin findings: 1. 0.2-0.3cm scaly irregular pink papules right cheek adjacent to scar, right paranasal cheek 2. Multiple scattered 0.4-0.6cm brown papules with waxy, stuck-on appearance including lesions of concern on back and left arm. Milia like cysts, comedone- like openings and/or fissuring on dermoscopy. 3. Well healed violaceous surgical scar left lateral chest. No clinical evidence of recurrence. No re-pigmentation. No nodularity Diagnosis/Assessment/Treatment Plan: 1. Actinic keratoses- Discussed sun-induced etiology and potential to progress to non-melanoma skin cancer. Patient agreed to treatment with LN. Procedure Note: Procedure: Destruction of lesion(s) with cryotherapy. Number: 2 Location: as above Discussed procedure and expectations including risks (including risk of hypopigmentation) and benefits. Verbal consent obtained. Frozen with LN2, 15-30 second thaw time, TWICE. There were no complications; the patient tolerated the procedure well. Post-procedure expectations and wound care were reviewed. 2. Seborrheic keratoses- Benign lesions. Patient reassured. 3. Scar s/p BCC, NER- previously injected with [place] Kenalog. No longer bothersome. Follow-up: RTC in 1 year, sooner prn. Instructed to call for questions or concerns. PRAVIN CANAS LPN. has performed the documentation for this encounter in the presence of and acting as a scribe for Siobhan Lazcano MD, Dermatology Resident I performed the above scribed service and agree with the accuracy of the documentation in this encounter. Siobhan Lazcano MD Resident in Dermatology [facility] staff manager marketing sales: Anastasiia Price MD Section of Dermatology [facility] documented in this encounter Plan of Treatment Upcoming Encounters Date Type Specialty Care Team Description 03/15/2022 Procedure visit Dermatology Olamide Grayson MD [facility] [address] [place] [place], [place] [address] (Wo rk) documented as of this encounter Visit Diagnoses Diagnosis [place] (actinic keratosis) Actinic keratosis History of nonmelanoma skin cancer Personal history of other malignant neop lasm of skin [place] (seborrheic keratosis) Other seborrheic keratosis documented in this encounter Care Teams Sugar Refinery Supervisor Relationship Specialty Start Date End Date Jermain Montalvo DO PCP - General 01/28/[address] [place] [address] documented as of this encounter
--- OUTSIDE RECORDS SUMMARY | 2022-03-08 00:35 | XMS_ITS | Encounter Summary ---
:1965 Author Organization [place] [address] Care Team Providers Name Role Phone Jermain Montalvo DO Primary Care Provider Encounter Details Date Type Department Care Team Description 03/12/2021 Telephone Dermatology at [facility] Alayna Villalba MD [address] [place] [phone] [facility] [phone] [place] [address] (Wo rk) Social History Tobacco Use Types Packs/Day Years Used Date Never Smoker Smokeless Tobacco: Never Used Alcohol Use Standard Drinks/Week Comments Not Currently 0 (1 standard drink = 0.6 oz pure alcoho l) Sex Assigned at Date Recorded Not on file documented as of this encounter Miscellaneous Notes Telephone Encounter - Bia Lauren - 03/12/2021 9:23 AM EDT I received a call back from Checo Castellon Daniel about scheduling the follow up for the ED&C x 3. 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 He was wondering if we could do something on 03/26. I told him I would double check with Dr. Villalba and get back to him to see if we could squeeze him in. Telephone Encounter - Bia Lauren - 03/12/2021 9:14 AM EDT I left a voicemail for Checo Sanchez requesting a call back to schedule ED&C x 3. Dr. Villalba is requesting a 30min slot for this. It is ok to wait until April. Telephone Encounter - Bia Lauren - 03/12/2021 9:14 AM EDT ----- Message from Alayna Villalba MD sent at 03/11/2021 8:43 AM EDT ----- Regarding: RE: ED&Cs 11:30 on a surgery day would be good if the 11 just has one site and it's not a melanoma. It can wait until Apr. ----- Message ----- From: Bia Lauren Sent: 03/10/2021 1:10 PM EDT To: Alayna Villalba MD, Ary Rao Subject: RE: ED&Cs Oh! He does have a lot going on then! Dr. Villalba would this be ok to put into a 45 min surgery slot? Or maybe at the end of surgery? Let me know how you want me to proceed. Thanks! Bia ----- Message ----- From: Ary Rao Sent: 03/10/2021 11:10 AM EDT To: Bia Lauren Subject: RE: ED&Cs He had a lot of things going on when we saw him and has had 4 of his BCCs treated in Mohs but still has 3 BCCs that need ED&Cs. I just checked over Dr. Siegel's notes and he has only done the 4 sites on the head. Maybe you weren't routed Trina's note from the path report for the 4 we biopsied? Spoke with patient and discussed biopsy results today indicating a BCC x 4. Reviewed recommendation from Dr. Villalba for MOHS x 1 and ED&C x 3. Patient verbalized understanding. Will refer to MOHS and patient will wait for call from MOHS secretary board of commissioners to schedule Will have secretary board of commissioners call and schedule and ED&C 12/07/20: right temporal forehead, sBCC (Mohs on 02/15/21) 12/07/20: right trapezius, sBCC - ED&C 12/07/20: right lateral back, sBCC - ED&C 12/07/20: right anterior shoulder, sBCC - ED&C 12/07/20: right preauricular, BCC (Mohs on 02/15/21) 12/07/20: right paranasal, BCC (frozen section and Mohs on 02/01/21) 12/07/20: right nasal dorsum, BCC (frozen section and Mohs on 02/01/21) ----- Message ----- From: Bia Lauren Sent: 03/10/2021 10:46 AM EDT To: Alayna Villalba MD, Ary Rao Subject: RE: ED&Cs Can we re check this? It looks like Dr. Siegel treated theses in [facility]? I didn't receive any communications about doing the ED&C's there is a note that Dr. Villalba referred to [facility]? Em ----- Message ----- From: Ary Rao Sent: 03/05/2021 8:38 AM EDT To: Alayna Villalba MD, Bia Lauren Subject: ED&Cs Hi Em! This patient has not been scheduled to have these treated yet. DA, do you want a 30 min appointment since there's 3 sites? ALR 12/07/20: right trapezius, sBCC - ED&C 12/07/20: right lateral back, sBCC - ED&C 12/07/20: right anterior shoulder, sBCC - ED&C documented in this encounter Plan of Treatment Upcoming Encounters Date Type Specialty Care Team Description 03/15/2022 Procedure visit Dermatology Olamide Grayson MD [facility] MEDICAL [facility] [address] [place] [address] (Wo rk) documented as of this encounter Visit Diagnoses Not on filedocumented in this encounter Care Teams Chin Strap Sewer Relationship Specialty Start Date End Date Jermain Montalvo DO PCP - General 01/28/[address] [place] [address] documented as of this encounter
--- OUTSIDE RECORDS SUMMARY | 2022-03-08 00:35 | XMS_ITS | Encounter Summary ---
:1965 Author Organization [facility] Address [address] [place] [address] Care Team Providers Name Role Phone Jermain Montalvo DO Primary Care Provider Reason for Visit Auth/Cert Specialty Diagnoses / Procedures Referred By Contact Refer red To Contact Diagnoses Unilateral primary osteoarthritis, right knee OA/DJD Procedures PRO TOTAL KNEE ARTHROPLASTY TOTAL KNEE ARTHROPLASTY (WRVU 20.72) [facility] Referral ID Status Reason Start Date Expiration Date Visits Requ ested Visits Authorized [id number] 1 1 Encounter Details Date Type Department Care Team Description 02/26/2019 - Hospital Encounter Med Surg Unit at [facility]fin Leach ry osteoarthritis 02/28/2019 JAIME Jackson MD of right knee [address] [place] [place] [address] [address] [place], [place] [phone] [id number] Social History Tobacco Use Types Packs/Day Years Used Date Never Smoker Smokeless Tobacco: Never Used Alcohol Use Standard Drinks/Week Comments Not Currently 0 (1 standard drink = 0.6 oz pure alcoho l) Sex Assigned at Date Recorded Not on file documented as of this encounter Last Filed Vital Signs Vital Sign Reading Time Taken Comments Blood Pressure 126/71 02/28/2019 8:36 AM EDT Pulse 61 02/28/2019 8:36 AM EDT Temperature 36.6 ??C (97.9 ??F) 02/28/2019 8:36 AM EDT Respiratory Rate 18 02/28/2019 8:36 AM EDT Oxygen Saturation 99% 02/28/2019 8:36 AM EDT Inhaled Oxygen Concentration - - Weight 93 kg (205 lb) 02/26/2019 12:42 PM EDT Height 185.4 cm (6' 1) 02/26/2019 12:42 PM EDT Body Mass Index 27.05 02/26/2019 12:42 PM EDT documented in this encounter Discharge Summaries Thierno Do PA - 02/28/2019 8:31 AM EDT [facility] Discharge Summary Admit date: 02/26/2019 Expected D/C [...] ON THE February 40 mg Refills: 0 [place] 500-1,000 mg Cap Take by mouth. Refills: [...] will be decided by your physician, physician speech pathologist assistant and physical therapist. ??? To be able to return to driving the following is recommended: o No longer taking pain medications. o Having the leg strength to press hard on the car brakes. o Clearance is usually between 4-6 weeks after surgery. ??? Do not return to work until cleared by your physician or physician speech pathologist assistant. o You may need to return [...] unavailable, you can use an alcohol-based hand industrial maintenance mechanic to clean your hands. ??? A Mepilex [...] unless otherwise instructed by your physician, physician speech pathologist assistant, or nurse. ??? Steri-strips have been [...] otherwise directed by your physician or physician speech pathologist assistant. ??? Celebrex is a non-steroidal anti-inflammatory [...] the duration of pain medication use. o Jxjo-kla-cplylog options: Colace 100 mg twice daily or [...] that fills the prescription. ??? Only take cbfc-cen-rmeteth or prescription medicine for pain, discomfort or [...] pain with breathing. SMOKING CESSATION INFORMATION: ??? [place] QUITLINE: ??? [place] QUITLINE: ??? [email or web address] Color If you smoke, stop now! Smoking may [...] pleased you have decided to come [facility] and we look forward to seeing you in the office soon. Future Appointments and Orders Future Appointments and Orders Future Appointments Provider Department Dept Phone 03/29/2019 2:00 PM Ary Alexander PA Orthopaedics at [facility] Arrive at: [facility] Level Inpatient Provider Contact Information: For questions regarding this summary or this inpatient hospitalization, please call the [facility] Orthopedic Office at [phone]. ROBERTH Milligan 02/28/2019 documented in this encounter [...] will be decided by your physician, physician speech pathologist assistant and physical therapist. ??? To be able to return to driving the following is recommended: o No longer taking pain medications. o Having the leg strength to press hard on the car brakes. o Clearance is usually between 4-6 weeks after surgery. ??? Do not return to work until cleared by your physician or physician speech pathologist assistant. o You may need to return [...] unavailable, you can use an alcohol-based hand industrial maintenance mechanic to clean your hands. ??? A Mepilex [...] unless otherwise instructed by your physician, physician speech pathologist assistant, or nurse. ??? Steri-strips have been [...] otherwise directed by your physician or physician speech pathologist assistant. ??? Celebrex is a non-steroidal anti-inflammatory [...] the duration of pain medication use. o Jfyw-vfm-jdnjxrj options: Colace 100 mg twice daily or [...] that fills the prescription. ??? Only take dhuk-jgr-sztmxur or prescription medicine for pain, discomfort or [...] pain with breathing. SMOKING CESSATION INFORMATION: ??? [place] QUITLINE: ??? [place] QUITLINE: ??? [email or web address] Color If you smoke, stop now! Smoking may [...] pleased you have decided to come to [facility] and we look forward to seeing you in the office soon. AttachmentsThe following attachments cannot be sent through Care Everywhere.TKR (Total Knee Replacement): Post-op (Sammarinese)documented in this encounter Medications at Time of Discharge Medication Sig Dispensed Refills Start Date End Date acetaminophen (TYLENOL) Take 1 tablet by 30 tablet 1 2018 500 mg Tablet mouth every 4 hours. aspirin 81 mg Tablet, Take 1 tablet by 30 tablet 3 02/29/20 19 Delayed Release (E.C.) mouth 2 times daily. multivitamin (THERAGRAN) Take by mouth. 0 Tablet [place] 500-1,000 mg Take by mouth. 0 Capsule [...] PA - 02/28/2019 8:13 AM EDT [facility] ORTH[facility] PROGRESS NOTE Admit Date: 02/26/2019 [...] patient's request. Patient is set up with [facility] and declines VNA services. Dispo: [...] Time: 1:44PM Minutes: 17 Equipment Recommendations: [] Support Merchandiser []Sock Aid []Shoe Horn []Dressing Stick []Long [...] throughout his tx session. ADL: Bathing-Pt and STAIN SPRAYER(Radha) reported pt completing a shower at Mod [...] PA - 02/27/2019 9:27 AM EDT [facility] ORTHOP[facility]IC PROGRESS NOTE Admit Date: 02/26/2019 [...] patient's request. Patient is set up with [facility] and declines VNA services. Dispo: [...] Leach MD - 02/27/2019 1:11 PM EDT [facility] Operative Note [address] [address] Surgery Start Time: 1502 Surgery Stop Time: 163 Date: 02/26/2019 Surgeon: Mesfin Leach MD Segment Assembler: ROBERTH Hardwick Oncology Navigator: Keny Meraz CRNA Anesthesia: Spinal and sedation [...] 5 days before removal. Follow-up Plan: In [facility] orthopaedic clinic in 4 weeks post-operatively [...] The knee was fully extended, a laminar course developer was placed in the intercondylar notch area, [...] drill followed by the punch according to vp cardiovascular service line's instructions. The provisional baseplate was removed. All trial components were then placed, along with a trial tibial insert. Tracking was examined through pzjdw-iw-mfrkhx, and there was no evidence of lateral [...] stable condition. All counts were correct. The director medical surgical, ROBERTH Hardwick, worked under my direction for the duration of the operativesession. The speech pathologist assistant adequately prepped the operative site and maintained the best possible exposure of anatomy incident to the procedure. Implant Name Type Inv. Item Serial No. Night Shift Manager Lot No. LRB No. Used Action CEMENT VERSABOND [id number] - [id number] IMPLANTS CEMENT VERSABOND 40GR ([id number]) [id number] G[employer] NEPHEW - GUTIERREZ NEPH [id number] Right 1 Implanted FEMORAL OX MANAGER POKER CR SZ 6 RT ([id number]) (AutoReq) - [id number] IMPLANTS FEMORAL OX MANAGER POKER CR SZ 6 RT ([id number]) (AutoReq) [id number] [employer] - GUTIERREZ NEPH [id number] Right 1 Implanted PLATE BASE TIBIAL MANAGER POKER SZ 5 RT ([id number]) (AutoReq) - [id number] IMPLANTS PLATE BASE TIBIAL MANAGER POKER SZ 5 RT ([id number]) (AutoReq) [id number] [employer] - GUTIERREZ NEPH [id number] Right 1 Implanted PATELLA RESURFACING [id number] ([id number]) (AutoReq) - [id number] IMPLANTS PATELLA RESURFACING [id number] ([id number]) (AutoReq) [id number] [employer]W - GUTIERREZ NEPH [id number] Right 1 Implanted INSRT CR ART XLPE SZ5/6 11MMRT ([id number]) (AutoReq) - [id number] IMPLANTS INSRT CR ART XLPE SZ5/6 11MMRT ([id number]) (AutoReq) [id number] [employer]W - GUTIERREZ NEPH [id number] Right 1 Implanted Initial Assessments - Joann [...] 20.72) performed by Mesfin Leach MD at [facility] MAIN OR ??? 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 Sit/stand o [place]: Mod I o Comments: no significant deviations from elevated surface ??? Ambulation: o [place]: Supervision o Assistive Device: FWW o Distance: [...] and the Pt is in agreement Charges: Gladis Fiore 2016 PT Evaluation Code Rationale: ?? Diagnosis [...] denied Primary Care Provider: Jermain Montalvo DO [phone] Pharmacy: [facility] in [facility] Health /Prescription Coverage: Primary Insurance: [employer] [place] Secondary Insurance: N/A DME: ben Community Resources: lives on [facility] VNA: none Transportation: family/friend Anticipated Barriers to [...] Initial Evaluation Lacey Dee OT Low - 62220 Moderate - 55997 High - 09762 History [x] Brief history including review of [...] eval Clinical Decision Making Complexity: [x] Low 43385 [] Moderate 51579 [] High 20038 Start Time: 8:42 Minutes: 27 Equipment Recommendations: Equipment Provided: Has log loader and shoe horn, long handled sponge. [] Support Merchandiser []Sock Aid []Shoe Horn []Dressing Stick []Long Handled Sponge []Elastic Shoe laces []Walker Basket []Other: Discharge Recommendations: Pt preferring OP therapies. Family will be assisting with household tasks. Precautions/Restrictions: WBAT, Fall risk Patient Living Environment: Pt lives alone [facility] an [facility]. Familylocal and able to assist. No stairs to enter the house. BA is shower/tub, grab bars overhead and in shower. No shower chair. Standard height toilet, vanity next to toilet to assist with STS. Patient Prior Level of Functioning: Pt was completing all ADL/IADL's independently. 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 1 indoor cat [...] No reports numbness/tingling Vision: Contacts for distance. Support Merchandiser. 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 ADL: [...] 03/15/2022 Procedure visit Dermatology Olamide Grayson MD [facility] DERMATOLOGY [place], [place] [address] (Wo rk) documented as of [...] (ABNORMAL) Differential, Automated (02/28/2019 6:28 AM EDT) [facility] gist Method Time Signature Neutrophils % 86.9 % [facility] Neutr Abs (ANC) 8.29 (H) 1.70 - [facility] 6.10 [facility]AT[facility] x10(3)/mc L Lymphocytes % 8.2 % [facility] Lymphocytes Abs 0.8 (L) 0.9 - 3.2 [facility] x10(3)/mc LABORATORY L Monocytes % 4.6 % [facility] Monocyte Abs 0.4 0.3 - 0.9 [facility] x10(3)/mc LABORATORY L Eosinophils % 0.0 % [facility] Eosinophils Abs 0.0 0.0 - 0.4 DAY x10(3)/ LABORATORY L Basophils % 0.1 % LABORATORY Basophils Abs 0.0 0.0 - 0.1 DAY x10(3)/ LABORATORY L Immature Gran % 0.20 [...] City/State/ZIP Code Phon e Number LABORATORY [address] [place], [place] [address] (ABNORMAL) Hemogram (02/28/2019 6:28 AM EDT) P athologist Signature WBC 9.5 4.0 - 9.5 DAY x10(3)/mcL LABORATORY RBC 4.27 (L) 4.58 - DAY 5.54 LABORATORY x10(6)/mcL Hemoglobin 13.1 (L) 13.7 - DAY 16.5 gm/dL LABORATORY Hematocrit 37.1 (L) 40.5 - DAY 48.5 % LABORATORY MCV 86.9 82.9 - DAY 93.1 fL LABORATORY MCH 30.7 27.5 - DAY 32.1 pg LABORATORY MCHC 35.3 32.0 - DAY 35.7 gm/dL LABORATORY Platelets 185 145 - 357 DAY x10(3)/mcL LABORATORY RDWSD 39.4 36.0 - DAY 45.0 fL LABORATORY RDWCV 12.4 11.4 - 13.8 % LABORATORY MPV 10.9 7.6 - 12.9 MT LABORATORY Specimen Anatomical Collection Method Collection Time Receive d Time (Source) Location / / Volume Laterality Blood specimen 02/28/2019 6:28 AM 019 7:17 (specimen) EDT AM EDT Resulting Agency Comment Spec In Lab / APD [facility] ORDERABLES Performing Organization Address City/State/ZIP Code Phon e Number LABORATORY [address] [place], [place] [address] (ABNORMAL) Basic Metabolic Panel [...] of body mass or the acutely ill. http://[employer]/[facility] eGFR 113 >=60 mL/min/1.73 m?? LABORATORY Comment: The eGFR was calculated using the CKD-EP I equation. As with all creatinine based estimates of kidney function, eGFR values calculated with the CKD-EPI equation are not accurate in patients wi th acute kidney failure, extremes of body mass or the acutely ill. http://[employer]/[facility] Specimen Anatomical Collection Method Collection Time Receive d Time (Source) Location / / Volume Laterality Blood specimen 02/28/2019 6:28 AM 019 7:17 (specimen) EDT AM EDT Resulting Agency Comment Spec In Lab / APD Mesfin Leach MD CHEMISTRY ORDERABLES Performing Organization Address City/State/ZIP Code Phon e Number LABORATORY [address] [place], [place] [address] (ABNORMAL) Differential, Automated (02/27/2019 6:06 AM EDT) [facility] Method Time Signature Neutrophils % 91.2 % [...] A[facility]AT[facility] ORDERABLES Performing Organization Address City/[facility] Phon e Number LABORATORY [address] [place], [place] [address] (ABNORMAL) Hemogram (02/27/2019 6:06 AM EDT) P athologist Signature WBC 11.2 (H) 4.0 - 9.5 DAY x10(3)/mcL LABORATORY RBC 4.28 (L) 4.58 - DAY 5.54 LABORATORY x10(6)/mcL Hemoglobin 13.2 (L) 13.7 - DAY 16.5 gm/dL LABORATORY Hematocrit 37.0 (L) 40.5 - 48.5 % LABORATORY MCV 86.4 82.9 - 93.1 fL LABORATORY MCH 30.8 27.5 - DAY 32.1 pg LABORATORY MCHC 35.7 32.0 - DAY 35.7 gm/dL LABORATORY Platelets 195 145 - 357 x10(3)/mcL LABORATORY RDWSD 39.2 36.0 - 45.0 fL LABORATORY RDWCV 12.4 11.4 - DAY 13.8 % LABORATORY MPV 11.0 7.6 - 12.9 fL LABORATORY Specimen Anatomical Collection Method Collection Time Receive d Time (Source) Location / / Volume Laterality Blood specimen 02/27/2019 6:06 AM 019 6:43 (specimen) EDT AM EDT Resulting Agency Comment Spec In Lab / APD [facility] H[facility]AT[facility] ORDERABLES Performing Organization Address City/[facility]/ZIP Code Phon e Number LABORATORY [address] [facility] [place], [place] [address] Basic Metabolic Panel (non-fasting) (02/27/2019 6:06 AM EDT) P athologist Signature Glucose Lvl 154 65 - 199 [facility] mg/dL LABORATORY Comment: Diabetes: >=200 mg/dL plus symp toms BUN 16 10 - 20 mg/dL [facility] Creatinine 0.93 0.80 - 1.50 mg/dL [facility] Sodium 139 135 - 145 mmol/L [facility] Potassium 4.6 3.5 - 5.0 mmol/L [facility] Comment: Please note: ??Patients with WBC [...] Calcium 9.2 8.5 - 10.5 mg/dL [facility] Estimated GFR 94 >=60 mL/min/1.73 m?? [facility] Comment: The eGFR was calculated using the CKD-EP I equation. As with all creatinine based estimates of kidney function, eGFR values calculated with the CKD-EPI equation are not accurate in patients wi th acute kidney failure, extremes of body mass or the acutely ill. http://[employer]/[facility] eGFR 109 >=60 mL/min/1.73 m?? [facility] Comment: The eGFR was calculated using the CKD-EP I equation. As with all creatinine based estimates of kidney function, eGFR values calculated with the CKD-EPI equation are not accurate in patients wi th acute kidney failure, extremes of body mass or the acutely ill. http://[employer]/[facility] Specimen Anatomical Collection Method Collection Time Receive d Time (Source) Location / / Volume Laterality Blood specimen 02/27/2019 6:06 AM 019 6:43 (specimen) EDT AM EDT Resulting Agency Comment Spec In Lab / APD Mesfin Leach MD CHEMISTRY ORDERABLES Performing Organization Address City/State/ZIP Code Phon e Number [facility] [address] [place], [place] [address] SCAN DOC: TELEMETRY STRIPS (02/26/2019 12:00 AM EDT) Narrative 02/26/2019 12:00 AM EDT This result has an attachment that is no t available. Ordered by an unspecified provider. Scanning Provider MEDIA MGR SCAN EXT ORDR/RSLT documented in this encounter Visit Diagnoses Diagnosis Primary osteoarthritis of right knee Primary localized osteoarthrosis, lower leg Status post total right knee replacement with Dr. Leach on 02/26/19 documented in this encounter Admitting Diagnoses Diagnosis Status [...] Given 02/27/2019 9:07 AM EDT 81 mg ceFAZolin (ANCEF) 2g in dextrose 5% 100m L New Bag 02/27/2019 10:45 AM EDT 2 g 2 g, Intravenous, EVERY 8 HOURS, First dose on Mon02/26/19 at 1900, 3 doses, Last dose on Mon02/27/19 at 1100, Adjust to 4 hours from intraoperative dose. * Beta-lactam based antibiotics (eg. Ampicillin, Cefazolin, Aztreonam) should be administered within 4 hours of the preceding intraoperative dose. New Bag 02/27/2019 3:47 AM EDT 2 g New Bag 02/26/2019 7:32 PM EDT 2 g dexamethasone (DECADRON) injection 4 mg Given 02/28/2019 [...] , Starting on Mon02/26/19 at 1845, Until Keiko 02/28/19 at 1344, Pain, Give 0.5 mg for m ild to moderate pain (1-6), 1 mg for severe pain (7-10) Patient may have IV if unable to take PO, Routine HYDROmorphone (DILAUDID) tablet 2 mg Given 02/26/2019 5:25 PM EDT 2 mg 2 mg, Oral, ONCE, 1 dose, On Mon02/26/19 at 1730, Single dose when taking PO, PACU Recovery, Routine HYDROmorphone (DILAUDID) tablet 2-4 mg Given [...] Given 02/27/2019 9:13 PM EDT 30 mg lactated ringers infusion New Bag 02/26/2019 2:34 PM EDT 1,000 mL, at 50 mL/hr, Intravenous, CONTINUOUS, Starting on Mon02/26/19 at 1300, Until Mon02/26/19 at 1813, Day of Surgery (Day of Procedure) New Bag 02/26/2019 1:18 PM EDT 1,000 mLs 50 mL/hr lactobacillus with pectin 1 capsule Given 02/28/2019 8:57 AM EDT 1 capsule 1 capsule, Oral, 2 TIMES DAILY, First dose on Mon02/26/19 at 2100, Until Discontinued, Routine Given 02/27/2019 9:13 PM EDT 1 capsule Given 02/27/2019 9:07 AM EDT 1 capsule ondansetron (ZOFRAN) injection 4 mg 4 mg, [...] Until Keiko 02/28/19 at 1344, Sleep, Routine documented in this encounter Active and Recently Administered Medications Times are shown in EDT. Scheduled Medication Order 02/26/2019 02/27/2019 02/28/2019 acetaminophen (TYLENOL) tablet 500 mg 193 (Given - Pr ovider: Chely Gillespie RN)2343 (Given - Provider: Chely Gillespie RN) 0340 (Given - Provider: Chely Gillespie RN)0732 (Given - Provider: Melanie Randall, ANTONIO)1157 (Given - Provider: Melanie Randall, ANTONIO)1600 (Not Given - Provider: Melanie Randall RN - Reason: Patient/family refused) 0009 (Given - Provider: Michela Morales RN)0424 (Given - Provider: Michela Morales, ANTONIO)0727 (Given - Provider: Melanie Randall, ANTONIO) 500 mg, Oral, EVERY 4 HOURS SCHEDULED, F irst dose on Mon02/26/19 at 2000, Until Discontinued, Maximum dose of acetaminophen is 4000 mg from all sources in 24 hours., Routine 2111 (Given - Provider: Nely Garnett) aspirin EC tablet 81 mg 2036 (Given - Provider: Chely Gillespie RN) 0907 (Given - Provider: Melanie Randall RN)2112 (Given - Provider: Ramesh Myers, RN) 0855 (Given - Provider: Melanie Randall, ANTONIO) 81 mg, Oral, 2 TIMES DAILY, First dose o n Mon02/26/19 at 2100, Until Discontinued, Routine ceFAZolin (ANCEF) 2g in dextrose 5% 100mL (CANCELED) 1 441 (Given - Provider: Carrington Meraz CRNA)1715 (Not Given - Provider: Marcellus Green RN - Reason: Per MD Order) 2 g, Intravenous, EVERY 4 HOURS, First d ose on Mon02/26/19 at 1315, Until Discontinued, Administer over 30 Minutes, Administer over 30 minutes, Redose after 4 hours., Intra-Operative (Intra-Procedure), Indication for (Active or Suspected): Prophylaxis ceFAZolin (ANCEF) 2g in dextrose 5% 100mL (COMPLETED) 1931 (New Bag - Provider: Chely Gillespie RN)2001 (Stopped - Provider: Chely Gillespie RN) 0347 (New Bag - Provider: Chely Gillespie RN)0417 (Stopped - Provider: Chely Gillespie, ANTONIO)1045 (New Bag - Provider: Melanie Randall, ANTONIO)1115 [...] 2036 (Given - Provider: Chely Gillespie RN) 905 (Given - Provider: Melanie Randall, ANTONIO)2113 (Given [...] Routine HYDROmorphone (DILAUDID) tablet 2 mg (COMPLETED) 172 (Given - Provider: Amy Lopez RN - Comment: override required pyxis profile not showing medication) 2 mg, Oral, ONCE, 1 dose, Mon02/26/19 at 1730, Single dose when taking PO, PACU Recovery, Routine ketorolac (TORADOL) injection 30 mg 2037 (Given - Prov ider: Chely Gillespie RN) 0340 (Given - Provider: Chely casillas RN)0906 (Given - Provider: Melanie Randall, ANTONIO)145 (Given - Provider: Melanie Randall RN)2112 (Given - Provider: Ramesh Myers RN) 0425 (Given - Provider: Michela Morales RN)0856 [...] Melanie Randall RN)2112 (Given - Provider: Ramesh Myers RN) 0857 (Given - Provider: Melanie Randall, ANTONIO) [...] tab let 2036 (Given - Provider: Chely Gillespie, ANTONIO) 906 (Given - Provider: Melanie Randall, ANTONIO)2111 (Given - Provider: Ramesh Myers, ANTONIO) 0856 (Given - Provider: Melanie Randall, RN) 1 tablet, Oral, 2 TIMES DAILY, First dos e on Mon02/26/19 at 2100, Until Discontinued, Routine sodium chloride 0.9 % (flush) flush 3 mL 2121 (Given - Provider: Chely Gillespie, ANTONIO) 906 (Given - Provider: Melanie Randall, ANTONIO)2099 (Given - Provider: Michela Morales RN) 09 (Given - Provider: Melanie Radnall, ANTONIO) 3 mL, Intravenous, EVERY 12 HOURS [...] Rectal, ONCE PRN, 1 dose, Startin g e 02/26/19 at 1845, Until [...] Provider: Mesfin Leach MD) ONCE PRN, Starting e 02/26/19 at 1535, U ntil Keiko 02/28/19 at 1344, Intra- Operative (Intra-Procedure), Routine cloNIDine injection (CANCELED) 1536 (Given - Provider: Mesfin garcía MD) ONCE PRN, Starting e 02/26/19 at 1536, U ntil Keiko 02/28/19 at 1344, Intra- Operative (Intra-Procedure), Routine HYDROmorphone (DILAUDID) injection 0.5-1 mg(Linked Group 1) 0347 (See Alternative - Provider: Chely Gillespie RN) 0424 (See Alternative - Provider: Michela Morales, ANTONIO) 0.5-1 mg, Intravenous, EVERY 3 HOURS PRN , Starting e 02/26/19 at 1845, Until Keiko 02/28/19 at 1344, Pain, Give 0.5 mg for mild to moderate pain (1-6), 1 mg for severe pain (7-10) Patient may have IV if unable to take PO, Routine HYDROmorphone (DILAUDID) tablet 2-4 mg(Linked Group 1) 0347 (Given - Provider: Chely Gillespie RN) 0424 (Given - Provider: Michela Morales, ANTONIO) 2-4 mg, Oral, EVERY 3 HOURS PRN, Startin g e 02/26/19 at 1845, Until Keiko 02/28/19 at 1344, Pain, Give 2 mg for mild to moderate pain (1-6), 4 mg for severe pain (7-10) Patient may have IV if unable to take PO, Routine ketorolac (TORADOL) injection (CANCELED) 153 (Given - Provider: Mesfin Leach MD - [...] Magnesia, Routine morphine 10 mg/mL injection (CANCELED) 153 (Given - P rovider: Mesfin Leach MD [...] Routine documented in this encounter Care Teams Construction Project Manager Relationship Specialty Start Date End Date Jermain Montalvo DO PCP - General 01/28/[address] [place] [address] [address] [place] [address] documented as of this encounter
--- OUTSIDE RECORDS SUMMARY | 2022-03-08 00:35 | XMS_ITS | Encounter Summary ---
:1965 Author Organization [facility] [place] [address] Care Team Providers Name Role Phone Jermain Montalvo DO Primary Care Provider Reason for Visit Reason Comments Basal Cell Carcinoma Encounter Details Date Type Department Care Team Description 02/01/2021 Clinical Support Dermatology at [facility] Partha Siegel Basal cell carcinoma (BCC) of dorsum of nose; Annmarie Mckay MD Basal cell carcinoma of right side of no se [address] [facility] [id number] [facility] [phone] [address] Social History Tobacco Use Types Packs/Day Years Used Date Never Smoker Smokeless Tobacco: Never Used Alcohol Use Standard Drinks/Week Comments Not Currently 0 (1 standard drink = 0.6 oz pure alcoho l) Sex Assigned at Date Recorded Not on file documented as of this encounter Progress Notes Adalgisa Santana RN - 02/01/2021 7:45 AM EDT Mohs consultation and preoperative note (H&P) Patient Name: Checo Sanchez Age: 55 y.o. Date of : 1965 Today's Date: 02/01/2021 REFERRING PROVIDER: Alayna Villalba MD CC: Mohs micrographic surgery for treatment of a cutaneous tumor HPI: Checo Sanchez is a 55 y.o. male presenting for probable basal cell carcinoma of the right [place]anas[place] right nasal dorsum. Frozen biopsies performed today. The dermatologic preoperative information sheet was reviewed with pertinent positive and negative as below. DERMATOLOGIC PRE-OPERATIVE EVALUATION AND REVIEW OF SYSTEMS History of Mohs surgery? no If yes, have you ever had Mohs surgery with Dr. Siegel? no Pacemaker/Defibrillator? no Joint replacement or other implantable devices (e.g. Cochlear implant)? If yes then when? yes, bilateral knees, most recent 02/2019 Do you take a blood thinner? Yes Aspirin 81mg History of organ transplant? no History of artificial valve or stroke? no History of liver disease or bleeding disorder? no Do you have any medical problems that may affect your upcoming surgery? no Do you have any concerns regarding your upcoming surgery? no SOCIAL HISTORY: Makes Own Decisions Yes Hearing aid or other devices: Yes contact lenses Relevant travel history or future plans: None Tobacco use (amount per day, type of tobacco): no Do you have any physical limitations that may affect your surgery?: no ALLERGIES: Allergies reviewed MEDICATIONS: Medications reviewed documented in this encounter Plan of Treatment Upcoming Encounters Date Type Specialty Care Team Description 03/15/2022 Procedure visit Dermatology Olamide Grayson MD [facility] DERMATOLOGY [place], [place] [address] (Wo rk) documented as of this encounter Visit Diagnoses Diagnosis Basal cell carcinoma (BCC) of dorsum of nose Basal cell carcinoma of right side of no se Basal cell carcinoma of skin of other an d unspecified parts of face documented in this encounter Care Teams Tab Machine Operator Relationship Specialty Start Date End Date Jermain Montalvo DO PCP - General 01/28/[address] [place] [address] documented as of this encounter
--- OUTSIDE RECORDS SUMMARY | 2022-03-08 00:35 | XMS_ITS | Encounter Summary ---
:1965 Author Organization [facility] [place] [address] Care Team Providers Name Role Phone Jermain Montalvo DO Primary Care Provider Encounter Details Date Type Department Care Team Description 12/05/2018 Abstract Luisa Gross Conversion Apd Conversion, Flowsheet Results Provider, [address] [place] [address] Social History Tobacco Use Types Packs/Day Years Used Date Never Smoker Sex Assigned at Date Recorded Not on file documented as of this encounter Plan of Treatment Upcoming Encounters Date Type Specialty Care Team Description 03/15/2022 Procedure visit Dermatology Olamide Grayson MD [facility] DR DERMATOLOGY [place], [place] [address] (Wo rk) documented as of this encounter Visit Diagnoses Not on filedocumented in this encounter Care Teams Multi Mission Helicopter Aircrewman Relationship Specialty Start Date End Date Jermain Montalvo DO PCP - General 01/28/[address] [place] [address] documented as of this encounter
--- OUTSIDE RECORDS SUMMARY | 2022-03-08 00:35 | XMS_ITS | Encounter Summary ---
:1965 Author Organization [facility] [place] [address] Care Team Providers Name Role Phone Jermain Montalvo DO Primary Care Provider Reason for Referral Consultation (Routine) - Authorized Specialty Diagnoses / Procedures Referred By Contact Refer red To Contact Dermatology Diagnoses Epidermal inclusion cyst Alayna Villalba MD [facility] Dermatology [facility] [address] [facility] [place] [address] [place] [address] Referral ID Status Reason Start Date Expiration Visits Visits Date Requested Authorized [id number] Authorized Consult, 01/31/2022 01/31/2023 1 1 Test & Treat Reason for Visit Reason Comments Skin Cancer Examination Encounter Details Date Type Department Care Team Description 01/31/2022 Office Visit Dermatology at [facility] Ep idermal inclusion cyst; Annmarie ALFORD Basal cell carcinoma (BCC), unspecified site [address] [place] [address] [facility] [place] [place] [address] Social History Tobacco Use Types Packs/Day Years Used Date Never Smoker Smokeless Tobacco: Never Used Alcohol Use Standard Drinks/Week Comments Not Currently 0 (1 standard drink = 0.6 oz pure alcoho l) Sex Assigned at Date Recorded Not on file documented as of this encounter Progress Notes Alayna Villalba MD - 01/31/2022 2:45 PM EDT Images from the original note were not included. DEPARTMENT OF DERMATOLOGY Medical Dermatology Clinic Provider: ALAYNA VILLALBA MD Patient's preferred name Peter Preferred contact method for results [x]Phone (Home) []myD-H []Letter Detailed phone message OK? Yes Are there any other people with whom we may discuss your care? No Past Medical History Date, location, treatment Melanoma No Dysplastic nevi No SCC No BCC Patient reported BCC on the ? left flank ?? 12/07/20: Left scapula, sBCC (clinical diagnosis, LN2) 12/07/20: Midline lower back, sBCC (clinical diagnosis, LN2) 12/07/20: Right upper arm, sBCC (clinical diagnosis, LN2) 12/07/20: Right upper arm, sBCC (clinical diagnosis, LN2) 12/07/20: Left tricep, sBCC (clinical diagnosis, LN2) 12/07/20: Right temporal forehead, sBCC (Mohs 02/15/21) 12/07/20: Right trapezius, sBCC??(NER 03/26/21) 12/07/20: Right lateral back, sBCC??(ED&C 03/26/21) 12/07/20: Right anterior shoulder, sBCC??(ED&C 03/26/21) 12/07/20: Right preauricular, BCC (Mohs 02/15/21) 12/07/20: Right paranasal, BCC (Mohs 02/01/21) 12/07/20: Right nasal dorsum, BCC (Mohs 02/01/21) 08/09/21: Left scapula, sBCC (clinical diagnosis, LN2) AKs Yes UV Exposure & Protection Sun exposure: High as teen/young adult Other relevant past medical history EIC (midline mid back) Family History Details Melanoma No NMSC Mother Other relevant family history No 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 Patient returns to clinic today for a full skin exam with the following concerns: - Left lateral shoulder; site bleeds easily, noticeable for several months ; also a bothersome enlarging cyst on the mid back Last FSE: N/A Last visit at Dermatology: 08/09/2021 Medications: Reviewed in eD-H Allergies: Reviewed in eD-H Skin Examination: Full skin examination: Patient asked to undress to their comfort level. Verbalized that the provider???s preference is that the patient remove all clothing and that the provider will not examine areas patient elects to keep covered. Patient elects to keep underwear on and have the following examined: s calp, hair, face, ears, neck, chest, axillae, abdomen, back, and upper and lower extremities. Genitalia and buttocks were not examined. Assessment/Plan A. BCC - 0.5cm on the left lateral shoulder/deltoid (Figure 1). - Recommended a skin biopsy to confirm/clarify the nature of the skin lesion. After discussion of potential risks (scarring, bleeding, infection) and recurrence, patient agreed to proceed. - Patient denies known allergies to lidocaine and epinephrine. Procedure: Skin shave removal Location: left lateral shoulder/deltoid Time of procedure: 3:00pm Discussed indications for procedure and expectations including risks and benefits. Verbal consent obtained. Time out performed. Skin prepped with alcohol. Local anesthesia with 1% xylocaine, 1/100,000 epinephrine. The entire lesion was removed by shave technique to the level of the dermis and submitted to Pathology. Hemostasis obtained (AlCl). There were no complications; patient tolerated the procedure well. Wound dressed. Post-procedure expectations, wound care and activity restrictions reviewed. - Follow-up based on pathology results. B. Epidermal Inclusion Cyst - 4.5 cm subcutaneous nodule on the central back. (measured 3cm at last visit) - Discussed benign nature of lesion and provided reassurance. - Discussed that definitive treatment would require surgical excision. Referral sent for excision with Dr Giraldo for excision Figure 1 Photo(s) taken and charted with patient's verbal consent. Other: ??? Sun protection discussed (protective clothing and SPF30+ broad-spectrum sunscreen) RTC: August 2022 for FSE []Note routed to medical secretary receptionist []Recall placed in scheduling system [x]Appointment scheduled at checkout Scribe attestation: Ary Tom, RN has performed the documentation for this encounter in the presence of and acting as a scribe for ALAYNA VILLALBA MD. I performed the above scribed service and agree with the accuracy of the documentation in this encounter. Reviewed and signed by: ALAYNA VILLALBA MD [facility] documented in this encounter Plan of Treatment Upcoming Encounters Date Type Specialty Care Team Description 03/15/2022 Procedure visit Dermatology Olamide Grayson MD [facility] DR DERMATOLOGY [place], [place] [address] (Wo rk) Scheduled Referrals Name Type Priority Associated Order Schedule Diagnoses Referral to Outpatient Referral Routine Epidermal inclusion O rdered: Dermatology cyst 01/31/2022 documented as of this encounter Procedures Procedure Name Priority Date/Time Associated Diagnosis Comme nts SURGICAL PATHOLOGY Routine 01/31/2022 3:17 PM Res ults for this REPORT EDT procedure are i n the results section. SPECIMEN TO Routine 01/31/2022 3:17 PM Basal cell carcinoma R esults for this PATHOLOGY EDT (BCC), unspecified procedure are in site the results section. documented in this encounter Results Surgical Pathology Report (01/31/2022 3:17 PM EDT) Component Value Ref Test Analysis Performed At [facility] Method Time Signature Surgical [id number] ? Location: [facility] Report The signing pathologist has (i) examined the relevant preparation(s) for the MEMORIAL specimen(s) and (ii) rendered or confirmed the diagnosis(es) . HOSPITAL LABORATORY . ?Surgic al Pathology DIAGNOSIS Left lateral shoulder/deltoid, skin shave removal: - ??Basal cell carcinoma, no dular type, not identified at the histologic edges in planes of section examined Electronically signed by: ?Preet ALFORD, PhD, Heladio Verified: ??02/02/2022 13:56 ??Dermatopathologist Performed at: ??-[facility] [place] Dept. [place]ology, [place], [place] SPECIMEN(S) SUBMITTED A - Left lateral shoulder/deltoid, skin shave removal (1) CLINICAL INFORMATION BCC- 0.5 cm on the left lateral shoulder/deltoid SPECIMEN PROCESSING A - Labeled/Fixative: Left lateral shoulder/deltoid, formali n. Quantity/Size: ??Single, 0.9 x 0.7 x 0.3 cm. Tissue Description: Shave of white skin with an central 0.6 x 0.5 cm smooth, domed garcia-pink papule. Sections/Processing: Inked, quadrisected and entirely submitted in 2 cassettes as follows: ?A1: ??Tips ?A2: ??Body ??mnd Specimen (Source) Anatomical Collection Method Collection Time Re ceived Time Location / / Volume Laterality 01/31/2022 3:17 PM EDT Alayna Villalba MD PATHOLOGY/CYTOLOGY ORDERABLE S Performing Organization Address City/State/ZIP Code Phon e Number [address] Specimen to Pathology (01/31/2022 3:17 PM EDT) Specimen Anatomical Collection Method Collection Time Receive d Time (Source) Location / / Volume Laterality AP Specimen 01/31/2022 3:17 PM 3:17 EDT PM EDT Narrative [facility] - 01/31/2022 3:17 PM EDT Specimen requisition ordered. ??Separate Pathology report to follow Alayna Villalba MD PATHOLOGY/CYTOLOGY ORDERABLE S Performing Organization Address City/[facility]/ZIP Code Phon e Number [address] documented in this encounter Visit Diagnoses Diagnosis Epidermal inclusion cyst Sebaceous cyst Basal cell carcinoma (BCC), unspecified site documented in this encounter Care Teams Polish Compounder Relationship Specialty Start Date End Date Jermain Montalvo DO PCP - General 01/28/[address] [place] [address] [address] [place] [address] documented as of this encounter
--- OUTSIDE RECORDS SUMMARY | 2022-03-08 00:35 | XMS_ITS | Encounter Summary ---
:1965 Author Organization [place] [address] Care Team Providers Name Role Phone Jermain Montalvo DO Primary Care Provider Encounter Details Date Type Department Care Team Description 04/04/2018 Interpretation Only Ary Gomez , [facility] [address] [place] [address] D [phone] [place], [place] [address] (Wo rk) Social History Tobacco Use Types Packs/Day Years Used Date Never Smoker Sex Assigned at Date Recorded Not on file documented as of this encounter Plan of Treatment Upcoming Encounters Date Type Specialty Care Team Description 03/15/2022 Procedure visit Dermatology Olamide Grayson MD [facility] [address] [place], [place] [address] (Wo rk) documented as of this encounter Procedures Procedure Name Priority Date/Time Associated Diagnosis Comme nts XR KNEE AP LAT Routine 04/04/2018 1:08 PM Results for this AXIAL PATELLA LEFT EDT procedure are in the results section. documented in this encounter Results XR Knee 3 Views Left (04/04/2018 1:08 PM EDT) Anatomical Region Laterality Modality Knee Left Radiographic Imaging Specimen (Source) Anatomical Collection Method Collection Time Re ceived Time Location / / Volume Laterality 04/04/2018 1:08 PM EDT Impressions 04/04/2018 1:44 PM EDT Status post total left knee arthroplasty without evidence of complication. Narrative 04/04/2018 1:44 PM EDT EXAMINATION: KNEE BL/WB & 2+VWS -LT CLINICAL HISTORY: ASSES HEALING, ?? TECHNIQUE: Frontal weightbearing and lateral and iqbal nrise views of the left knee COMPARISON: None FINDINGS: The patient is status post total left kn ee arthroplasty. Hardware components are in good position. No periprosthetic frac ture. No. Hardware lucency to indicate loosening or infection. There is a moder ate-sized left-sided suprapatellar knee joint effusion. There is moderate loss of right medial a nd lateral compartment joint space height with accompanying marginal osteop hyte proliferation. Procedure Note Joel Garcia MD - 04/04/2018Formattin g of this note might be different from the original. EXAMINATION: KNEE BL/WB & 2+VWS -LT CLINICAL HISTORY: ASSES HEALING, TECHNIQUE: Frontal weightbearing and lateral and iqbal nrise views of the left knee COMPARISON: None FINDINGS: The patient is status post total left kn ee arthroplasty. Hardware components are in good position. No periprosthetic frac ture. No. Hardware lucency to indicate loosening or infection. There is a moder ate-sized left-sided suprapatellar knee joint effusion. There is moderate loss of right medial a nd lateral compartment joint space height with accompanying marginal osteop hyte proliferation. IMPRESSION Status post total left knee arthroplasty without evidence of complication. Ary LEPE IMG DX ORDERABLES documented in this encounter Visit Diagnoses Not on filedocumented in this encounter Care Teams Freelance Copywriter Relationship Specialty Start Date End Date Jermain Montalvo DO PCP - General 01/28/[address] [place] [address] documented as of this encounter
--- OUTSIDE RECORDS SUMMARY | 2022-03-08 00:35 | XMS_ITS | Encounter Summary ---
:1965 Author Organization [facility] [place] [place] [address] Care Team Providers Name Role Phone Jermain Montalvo DO Primary Care Provider Reason for Visit Reason Comments Basal Cell Carcinoma Encounter Details Date Type Department Care Team Description 02/15/2021 Procedure visit Dermatology at [facility] Basal cell carcinoma (BCC) of right forehead; Road R, BCC (basal cell carcinoma), face [address] [facility] [id number] [facility] [phone] [place] [address] Social History Tobacco Use Types Packs/Day Years Used Date Never Smoker Smokeless Tobacco: Never Used Alcohol Use Standard Drinks/Week Comments Not Currently 0 (1 standard drink = 0.6 oz pure alcoho l) Sex Assigned at Date Recorded Not on file documented as of this encounter Last Filed Vital Signs Vital Sign Reading Time Taken Comments Blood Pressure 128/80 02/15/2021 8:01 AM EDT Pulse 58 02/15/2021 8:01 AM EDT Temperature - - Respiratory Rate - - Oxygen Saturation - - Inhaled Oxygen Concentration - - Weight - - Height - - Body Mass Index - - documented in this encounter Patient Instructions Patient InstructionsDilcia Smith CCMA - 02/15/2021 8:00 AM EDT Your staff surgeon today was Alexys Siegel MD,PhD. Your wound(s) was repaired by [id number] stitches called a primary repair. You do not need to come back for suture removal because only absorbablesutures were used today. If the absorbable sutures bother your skin or do not absorb after 2 weeks, you may call us to remove them for you. Instructions are as below. Please keep this as a reference: Wound Care For wounds closed with absorbable-only stitches: ??? Gently remove your initial bandage (after 48 hours from surgery) and begin wound care as below. ??? If your initial bandage only lasts 24 hours (for example, falls off sooner), this is okay. Resume your wound care and bandaging instructions as below. ??? Change your bandage once a day (and whenever it becomes wet or soaks through). DO WOUND CARE FORONE WEEK. ??? For bandage changes: o Wash hands with soap and water, or use gloves that you can purchase a local pharmacy or drug store. o Clean the surgical area with cotton-tipped swabs or gauze dipped in soapy water (recommend liquid soap in clean room temperature water). Do not scrub the area or put direct shower water pressure ontoyour wound. It is okay to allow soapy water to run over your wound in the shower. o If you cannot remove crusted areas, you may soak with wet gauze first for 15 to 20 minutes to helpsoften it. o Pat the area dry with clean gauze or cotton swabs. Do not rub. o Use a cotton swab to apply a generous layer of petroleum jelly over the incision lines and any open-wound areas. o Cover with clean nonstick gauze or other nonstick dressing, such as Telfa. This may be purchased over the counter at a drug store. Secure with paper tape or bandage. Band-aids are okay, but typicallyhave more adhesive that can irritate the skin compared to paper tape. o Discontinue wound care after 7 days. If any portion of the incision was left open to heal on its own, continue to apply Vaseline daily until healed. o Allow the absorbable stitches to heal. If the top stitches that are absorbable are irritating yourskin, you may call us to have them removed. Otherwise, they will be absorbed naturally in approximately 2 weeks. It may absorb as quickly as 4 days. o Keep in mind that if you do not want to use a bandage at all due to difficulty, allergies, irritation of skin, cost, time, or inconvenience --- you can certainly avoid bandages altogether. However, it is imperative that you continue with topical petrolatum ointment or Aquaphor (plain, fragrance-free). This may need to be applied several times daily if it gets wiped off, washed off, or dries out. Things to purchase for wound care: -Nonstick gauze -A tube or tub of petrolatum jelly (fragrance-free, no dye, not lotion) -paper tape -cotton swabs -gloves (optional) -Dial or other antibacterial liquid soap After Surgery 1. If you are a tobacco user please attempt to decrease the amount of tobacco products used following surgery for 1-2 weeks. 2. Limit alcohol intake to one drink per day for the next 3 days. 3. Do not participate in athletic activities for 5-7 days, unless you were told a different timelineduring your visit. Athletic activity is a relative term, but this is considered to be anything that could potentially raise your heartrate or blood pressure. Elevating your heart rate and blood pressure increases the risk of swelling, bleeding, wound opening, and it could lead to worse scarring. Walking at a leisurely pace is fine for most people, but not if you are walking for the purpose of exercise. When in doubt, take it easy or call us. 4. Do not lift anything heavier than 10 pounds for 5-7 days postoperatively. 5. Some forensic accountant may need to be delayed or delegated such as vacuuming, mowing the lawn, snow shoveling, or caring for young children that need to be carried/lifted. Working any major muscle groups increases your heart rate and can increasing bleeding. 6. Avoid swimming, hot tubs, and direct water pressure for 3 weeks after surgery. You may shower, however, once your initial bandage comes off in 48 hours. 7. Avoid antibiotic ointments such as triple [...] 2 months. 10. Your wound will appear almost completely healed soon after sutures are removed (about 1 week), but incisions can remain bright red for several weeks. Then the scarring and healing process continuesunder the skin for 6 months until to 2 years. The scar may become less red, less firm, and more subtle during this time; please note that the rate of improvement varies depending on the person. Most redness, discoloration, bumpiness resolves by 6 months, and most patients will look presentable within a few weeks after surgery. 11. Keep your follow-up appointments and make sure to continue to have your skin checked, as often as is recommended by your cement finisher helper, for new skin cancers. This is once per year for most patients. 12. Your can expect your scar to be red for several weeks with gradual fading of the redness. Your scar will also be raised and lumpy until the dissolvable sutures under the skin get absorbed by your body which can take 3-4 months. The scar will flatten eventually. a. If you have a skin condition called rosacea, the redness can last long-term, or you can get an increased appearance of red vessels to the skin. The appearance of vessels slightly improves, but tendsto respond well to laser treatments. 13. Occasionally, about 20% of the time on the face, the stitches under the skin can spit out of the incision to the surface. It can start out looking like a pimple or blemish directly on your incision. Sometimes you can feel something poking through the incision. it can look also minic a small areaof infection, so please let us know before you [...] incision w ith a bandage when outdoors, wearing broad-rimmed hats, and wearing SPF 30 to 50 sunscreen (broad spectrum). 15. Any time you have skin surgery or any type of surgery, you can experience mild sensation loss (numbness) in the area of surgery. Massage starting at 8 weeks after surgery can help. 16. Swelling and bruising is common, and expected, especially if your surgery site was on the forehead, cheeks, temples, nose, or eyelids. . Sometimes it can be quite profound, where the eyelids swell shut, or getting black eyes. This is especially true if you are on blood thinners such as aspirin. Swelling and bruising will peak at about 48 hours after surgery. Bruising and swelling will graduallyresolve. You can use ice packs or a bag of frozen peas for 15-20 minutes, 20 minutes off, up to 3-4 times daily to areas of swelling on the face. Use caution not to put the icy item directly onto your incision, or directly in contact with your skin as this can damage skin. Avoid prolonged use more than 20 minutes. The best way to use ice packs is over the bandage, or using a light cloth/paper towel barrier between the ice pack and your skin. You can ice for as many days as needed until swelling has resolved. Eyelid and lip swelling is typically the last type of swelling to resolve. Antibiotics: If you were given antibiotic prescription, it is important to start them the evening of your surgerydate. However, most patients do not need antibiotics after surgery. For pain: Most patients of different ages do not require pain medications. If you do feel soreness, throbbing or sharp pains, start by taking over the counter extra strength acetaminophen (up to 3000 mg in a 24 hour period). Generally, we like you to avoid NSAIDS (non-steroid anti-inflammatory drugs such as ibuprofen) for the first 48 hours after surgery as this can increase risk of bleeding. However, if acetaminophen is not helping with pain, you can alternate acetaminophen with iburpofen or other NSAID. Icepacks over your bandage without getting your bandage wet can also help with pain and swelling. Frozen peas work well as ice packs. [...] it. If after hours, please call the x ray operator or [phone] and ask for the cement finisher helper on-call. If you have any non-urgent questions or concerns, please feel free to call my office or contact me through our patient portal, [email or web address], at [email or web address] How to contact us during business hours Dermatology at [facility]: Mohs scheduling or Mohs follow-up appointments: [phone] documented in this encounter Progress Notes Alexys Siegel MD - 02/15/2021 8:00 AM EDT Images from the original note were not included. Summary of Procedure(s): Site A: Site: Right temporal forehead Tumor Type: Basal Cell Carcinoma, superficial and nodular Stages to clear tumor: 2 Repair: linear closure Site B: Site: Right zygoma Tumor Type: Basal cell carcinoma, infiltrative Stages to clear tumor: 1 Repair: linear closure Images: Site A: Site B: The patient was asked to call with [...] and the biopsy report. VITAL SIGNS: BP 128/80 (BP Location (NBP): Left arm, Patient Position: Sitting, BP Cuff Sizes: Adult (25-34 cm)) Pulse 58 PHYSICAL EXAMINATION: General: patient is awake, alert, oriented and in no acute distress. Skin: Focused examination of surgical site(s) performed which shows a well healed biopsy site with surrounding poorly defined pearly plaque. PHYSICIAN REVIEW OF REPORTS, RECORDS, IMAGES: 1) The accompanying pathology report(s) associated with aforementioned biopsy slide(s) were/was alsoreviewed. Assessment: Checo Sanchez is a 55 y.o. male presenting for: 1. Biopsy-proven basal cell carcinoma, superficial and nodular located on the right temporal forehead. 2. Biopsy-proven basal cell carcinoma, infiltrative located on the right zygoma. Plan: 1. Findings from the biopsy report, [...] and follow up with his or her cement finisher helper or other skin provider. 6. Discussed avoiding direct sun exposure to scars for best cosmetic result. Note initiated by SHANA Jordan CCMA has performed the documentation for this encounter in the presence of and acting as a scribe for Dr. Siegel I performed the above scribed service and agree with the accuracy of the documentation in this encounter. Reviewed and signed by: Alexys Siegel Dermatology [facility] Alexys Siegel MD - 02/15/2021 8:00 AM EDT Mohs micrographic Surgery Operative Report Patient name: Checo Sanchez : 1965 Date: 02/15/2021 Staff Surgeon: Alexys Siegel MD PhD Nursing/Applications Sales Representative(s): Adalgisa Santana RN, Gretel Brush CMA, Ton Mendenhall CMA, Dilcia Smith CMA Cuprous Chloride Operator (s): Michelle Johnson Pre-operative diagnosis: Basal Cell Carcinoma, superficial and nodular Post-operative diagnosis: Basal Cell Carcinoma, superficial and nodular Location/Site: Right temporal forehead Procedure: Mohs micrographic surgery Indication(s) for Mohs [...] The site was confirmed with the patient/authorized retail sales representative/referring physician and/or a photograph form time [...] cell carcinoma (type of tumor) on section A1 (see section number on map). Stage II [...] of excision subcutaneous tissue Final defect size: 1.4 x 1.2 cm Repair Operative Report (Complex Linear Repair) Patient name: Checo Sanchez : 1965 Clinical Diagnosis: 1.4 x1.2cm surgical defect secondary to Mohs microscopically controlled excision Location/Site: Right temporal forehead Indication: repair of wound for baptism of function/anatomy Procedure: Complex linear layered closure of Mohs defect Staff Surgeon: Alexys Siegel MD PhD Surgical Assistants: Jaqueline Cortes MD, Jackie Munoz MD Nursing/Applications Sales Representative(s): Adalgisa Santana RN, Gretel Brush CMA, Laura Senior LPN, Ava Viveros CMA, Ton Mendenhall CMA, Dilcia Smith PLY SPLICER Due to the size and location of the defect resulting from the complete removal of the tumor, the postoperative risk of hemorrhage, infection, and the possibility of serious deformity from scarring, and in order to restore proper function and prevent loss of function, the defect was closed in the following manner. The nature and purpose of the procedure, associated risks, possible consequences, complications andalternative methods of treatment were explained to the patient in detail. An informed consent was obtained. The operative site was anesthetized with 1% lidocaine with 1:100,000 epinephrine. The site was prepped and draped in the usual sterile manner. The edges of the defect were widely undermined tat the dermal subcutaneous layer to a width greater than the width of the final defect as stated above. The edges could then be approximated without excess tension. Hemostasis was achieved with electrocoagulation. Redundant adjacent tissue was removed as needed. The deep tissues were apposed and sutured with 4-0 Monocryl sutures and the epidermal edges were approximated with 5-0 Fast Absorbing Gut running and/or interrupted sutures. The resulting complex linear closure measured 3.4 cm. The surgical site was cleaned and white petrolatum with a gauze pressure dressing applied. The patient tolerated the procedure well and without complications and was given both verbal and written instruction on postoperative wound care. Follow up as needed. The patient was discharged in good condition. Alexys Siegel MD PhD Mohs Micrographic Surgery and Dermatologic Oncology Department of Dermatology [address] [place] [address] Note initiated by SHANA Jordan CCMA has performed the documentation for this encounter in the presence of and acting as a scribe for Dr. Siegel I performed the above scribed service and agree with the accuracy of the documentation in this encounter. Reviewed and signed by: Alexys Siegel Dermatology [facility] Frozen Biopsy Procedure: Skin biopsy by shave technique Location: Right zygoma Discussed indications for procedure and expectations including risks and benefits. Verbal consent obtained. Skin prep with alcohol. Local anesthesia with 1% xylocaine, 1/100,000 epinephrine. A sample of the lesion was removed by shave technique to the level of the dermis and submitted for frozen sections and revealed basal cell carcinoma, infiltrative. Hemostasis obtained (AlCl and/or electrocautery). There were no complications; the pt. tolerated the procedure well. Mohs micrographic Surgery Operative Report Patient name: Checo Sanchez : 1965 Date: 02/15/2021 Staff Surgeon: Alexys Siegel MD PhD Nursing/Applications Sales Representative(s): Adalgisa Santana RN, Gretel Brush CMA, Laura Senior LPN, Ava Viveros CMA, Ton Mendenhall [facility], Dilcia Smith [facility] Cuprous Chloride Operator (s): Michelle Johnson Pre-operative diagnosis: Basal Cell Carcinoma, infiltrative Post-operative diagnosis: Basal Cell Carcinoma, infiltrative Location/Site: Right zygoma Procedure: Mohs micrographic surgery Indication(s) for Mohs micrographic surgery: Anatomic location for tissue conservation Stages: 1 Preoperative size of tumor: 1.0 x 0.9 cm Stage I The nature and purpose [...] The site was confirmed with the patient/authorized retail sales representative/referring physician and/or a photograph form time [...] the defect after complete tumor removal was 1.3 x 1.0 cm, extending to level of subcutaneous tissue. Repair Operative Report Clinical Diagnosis: 1.3 x 1.0 cm surgical defect secondary to Mohs microscopically controlled excision Location/Site: Right zygoma Indication: repair of wound for anatomic/functional baptism Procedure: Intermediate linear closure of Mohs defect Surgical Assistants: Jaqueline Cortes MD, Jackie Munoz MD Due to the size and location of the defect resulting from the complete removal of the tumor, the postoperative risk of hemorrhage, infection, and the possibility of serious deformity from scarring, and in order to restore proper function and prevent loss of function, the defect was closed in the following manner. The nature and purpose of the procedure, associated risks, possible consequences, complications andalternative methods of treatment were explained to the patient in detail. An informed consent was obtained. The operative site was anesthetized with 1% lidocaine with 1:100,000 epinephrine. The site was prepped and draped in the usual sterile manner. Moderate undermining of the surrounding tissue was performed for tension free closure as necessary and redundant tissue excised. The deep tissues were apposed and sutured with 4-0 Monocryl sutures and the epidermal edges were approximated with 6-0 Fast A bsorbing Gut running and/or interrupted sutures. .The resulting intermediate linear closure measured3.6 cm. The surgical site was cleaned and white petrolatum with a pressure dressing was applied. The patient tolerated the procedure well and without complications and was given both verbal and written instruction on postoperative wound care. Follow up as needed. The patient was discharged in good condition. Total local anesthesia with 1% lidocaine with 1:100,000 epinephrine used: 12 cc Total local with 0.25% bupivacaine used: 3 cc Alexys Siegel MD PhD Mohs Micrographic Surgery and Dermatologic Oncology Department of Dermatology [address] [place] [address] Note initiated by SHANA Jordan. SHANA Jordan has performed the documentation for this encounter in the presence of and acting as a scribe for Dr. Siegel I performed the above scribed service and agree with the accuracy of the documentation in this encounter. Reviewed and signed by: Alexys Siegel Dermatology [facility] documented in this encounter Plan of Treatment Upcoming Encounters Date Type Specialty Care Team Description 03/15/2022 Procedure visit Dermatology Olamide Grayson MD [facility] [address] [place] [id number] (Wo rk) documented as of this encounter Visit Diagnoses Diagnosis Basal cell carcinoma (BCC) of right fore head BCC (basal cell carcinoma), face Basal cell carcinoma of skin of other an d unspecified parts of face documented in this encounter Care Teams Decaler Relationship Specialty Start Date End Date Jermain Montalvo DO PCP - General 01/28/[address] [place] [address] documented as of this encounter
--- OUTSIDE RECORDS SUMMARY | 2022-03-08 00:35 | XMS_ITS | Encounter Summary ---
:1965 Author Organization [facility] [place] [address] Care Team Providers Name Role Phone Jermain Montalvo DO Primary Care Provider Reason for Visit Reason Comments Basal Cell Carcinoma Encounter Details Date Type Department Care Team Description 02/15/2021 Clinical Support Dermatology at [facility] ChristalPartha Basal cell carcinoma Annmarie Mckay MD (BCC) of right [address] [facility] [id number] [facility] [phone] [place] [address] Social History Tobacco Use Types Packs/Day Years Used Date Never Smoker Smokeless Tobacco: Never Used Alcohol Use Standard Drinks/Week Comments Not Currently 0 (1 standard drink = 0.6 oz pure alcoho l) Sex Assigned at Date Recorded Not on file documented as of this encounter Progress Notes Dilcia Smith, FLORINDAA - 02/15/2021 7:45 AM EDT Mohs consultation and preoperative note (H&P) Patient Name: Checo Sanchez Age: 55 y.o. Date of : 1965 Today's Date: 02/15/2021 REFERRING PROVIDER: Alayna Villalba MD CC: Mohs micrographic surgery for treatment of a cutaneous tumor HPI: Checo Sanchez is a 55 y.o. male presenting for probable basal cell carcinoma, superficial and nodular of the right temporal forehead. Frozen biopsy performed today. The dermatologic preoperative information sheet was reviewed with pertinent positive and negative as below. DERMATOLOGIC PRE-OPERATIVE EVALUATION AND REVIEW OF SYSTEMS History of Mohs surgery? Yes If yes, have you ever had Mohs surgery with Dr. Buck? Yes Pacemaker/Defibrillator? no Joint replacement or other implantable [...] visit Dermatology Olamide Grayson MD [facility] [place], [place] [address] (Wo rk) documented as of this encounter Visit Diagnoses Diagnosis Basal cell carcinoma (BCC) of right fore head documented in this encounter Care Teams Developmental Therapist Relationship Specialty Start Date End Date Jermain Montalvo DO PCP - General 01/28/[address] [place] [address] documented as of this encounter
--- OUTSIDE RECORDS SUMMARY | 2022-03-08 00:35 | XMS_ITS | Clinical Summary ---
:1965 Author Organization [facility] [place] [address] Care Team Providers Name Role Phone Jermain Montalvo DO Primary Care Provider Allergies Active Allergy Reactions Severity Noted Date Comments Ranitidine Hcl Medium 07/31/2017 Other reactio n(s): swelling and soreness Medications Medication Sig Dispensed Refills Start Date End Date Status gemfibrozil (LOPID) Take 600 mg by 0 Active 600 mg tablet mouth 2 times daily (before meals). omeprazole (PRILOSEC) Take 40 mg by 0 Active 20 mg capsule mouth daily. multivitamin Take by mouth. 0 Ac tive (THERAGRAN) Tablet [place] 500-1,000 mg Take by mouth. 0 Active Capsule acetaminophen Take 1 tablet by 30 tablet 1 02/28/2019 Active (TYLENOL) 500 mg mouth every 4 Tablet hours. aspirin 81 mg Tablet, Take 1 tablet by 30 tablet 3 02/28/2019 Active Delayed Release (E.C.) mouth 2 times daily. ketoconazole (NIZORAL) Apply topically to 30 g 0 12/08/19 21 Active 2 % CreamIndications: affected areas on Tinea corporis the abdomen and left chest twice daily as needed. Active Problems Problem Noted Date Status post total right knee replacement with Dr. Christiano saravia on 02/26/19 02/26/2019 Knee pain 02/05/2019 Hyperlipidemia 02/05/2019 Hiatal hernia 02/05/2019 Conductive hearing loss 02/05/2019 Bradycardia 02/05/2019 Basal cell carcinoma of skin 02/05/2019 Actinic keratosis 02/05/2019 Abnormal sexual function 02/05/2019 Osteoarthrosis 02/05/2019 Resolved Problems Problem Noted Date Resolved Date MRSA (methicillin resistant Staphylococcus aureus) 9 02/15/2019 Encounters Date Type Specialty Care Team Description 01/31/2022 Office Visit Dermatology Alayna Villalba MD Epiderma l inclusion cyst; Basal cell carc inoma (BCC), unspecified site from Last 3 Months Social History Tobacco Use Types Packs/Day Years Used Date Never Smoker Smokeless Tobacco: Never Used Alcohol Use Standard Drinks/Week Comments Not Currently 0 (1 standard drink = 0.6 oz pure alcoho l) Sex Assigned at Date Recorded Not on file Last Filed Vital Signs Vital Sign Reading Time Taken Comments Blood Pressure 128/80 02/15/2021 8:01 AM EDT Pulse 58 02/15/2021 8:01 AM EDT Temperature 36.6 ??C (97.9 ??F) 02/28/2019 8:36 AM EDT Respiratory Rate 18 02/28/2019 8:36 AM EDT Oxygen Saturation 97% 06/12/2019 3:42 PM EDT Inhaled Oxygen Concentration - - Weight 95.3 kg (210 lb) 06/12/2019 3:42 PM EDT Height 185.4 cm (6' 1) 06/12/2019 3:42 PM EDT Body Mass Index 27.71 06/12/2019 3:42 PM EDT Plan of Treatment Upcoming Encounters Date Type Specialty Care Team Description 03/15/2022 Procedure visit Dermatology Olamide Grayson MD [facility] [place], [place] [address] (Wo rk) Health Maintenance Due Date Last Done Comments Covid-19 Vaccine (#1) 1971 HIV screen 1984 Hepatitis C Screening 1984 Lipid Screening 1984 Tdap adult 1985 Tetanus vaccine 1985 Colonoscopy 2011 Zoster vaccine (1 of 2) 2016 Advance Directive 2021 Diabetes Screening (HgbA1C or 02/28/2022 02/28/2019, 2018, Glucose) 12/05/2018, Additional history exists Influenza (Flu) vaccine (1 of 1 - 04/21/2022 Influenza standard series) Medical Devices Implanted Type Area [employer] Developer Device Shelf Model / Identifier Expiration Serial / Date Lot Insrt Cr Art Xlpe Sz5/6 [id number] ([id number]) (Autoreq) - [id number] IMPLANTS Right: [employer] - 02/18/2028 [id number] / Implanted: Qty: 1 on 02/26/2019 by Mesfin Leach MD at [facility] NEW NEPH [id number] / [id number] Explanted Type Area [employer] Developer Device Shelf Model / Identifier Expiration Serial / Date Lot Pin Speed Non-Rimmed 80mm ([id number]) (Autoreq) - [id number] NTS Right: [employer] - [id number] / Explanted: Qty: 1 on 02/26/2019 by Mesfin Leach MD at [facility] NEW NEPH / [id number] Procedures Procedure Name Priority Date/Time Associated Diagnosis Comme nts SURGICAL PATHOLOGY Routine 01/31/2022 3:17 PM Res ults for this REPORT EDT procedure are i n the results section. SPECIMEN TO Routine 01/31/2022 3:17 PM Basal cell carcinoma R esults for this PATHOLOGY EDT (BCC), unspecified procedure are in site the results section. from Last 3 Months Results Surgical Pathology Report (01/31/2022 3:17 PM EDT) Component Value Ref Test Analysis Performed At [facility] Range Method Time Signature Surgical [id number] ? Location: [facility] Report The signing pathologist has (i) [...] Heladio Verified: ??02/02/2022 13:56 ??Dermatopathologist Performed at: ??-[facility] Dept. of Pathology, [place], [place] SPECIMEN(S) SUBMITTED A - Left lateral [...] Organization Address City/State/[place] [address] Specimen to Pathology (01/31/2022 3:17 PM EDT) Specimen Anatomical Collection Method Collection Time Receive d Time (Source) Location / / Volume Laterality AP Specimen 01/31/2022 3:17 PM 3:17 EDT PM EDT Narrative [facility] - 01/31/2022 3:17 PM EDT Specimen requisition ordered. ??Separate Pathology report to follow Alayna Villalba MD PATHOLOGY/CYTOLOGY ORDERABLE S Performing Organization Address City/State/ZIP [facility] Phon e Number [place] [id number] from Last 3 Months Insurance Payer Benefit Plan Subscriber ID Effective Dates Phone Address Type / Group [facility] [id number] 2018[place] [phone] [address] BLUE SHIELD t 3 [facility] [id number] [address] (Home) [place], [place] [phone] (Work) Advance Directives Latest Code Status on File Code Status Date Activated Date Inactivated Comments Full Code 02/26/2019 2:25 PM 02/28/2019 1:49 PM Does patient have capacity to make decision: Yes Care Teams Gypsum Calciner Relationship Specialty Start Date End Date Jermain Montalvo DO PCP - General 01/28/[address] [place] [address]
--- OUTSIDE RECORDS SUMMARY | 2022-03-08 00:35 | XMS_ITS | Encounter Summary ---
:1965 Author Organization [facility] [place] [address] Care Team Providers Name Role Phone Jermain Montalvo DO Primary Care Provider Encounter Details Date Type Department Care Team Description 03/07/2018 External Results Laboratory at [facility] [place] [address] [place] [address] [phone] Social History Tobacco Use Types Packs/Day Years Used Date Never Smoker Sex Assigned at Date Recorded Not on file documented as of this encounter Plan of Treatment Upcoming Encounters Date Type Specialty Care Team Description 03/15/2022 Procedure visit Dermatology Olamide Grayson MD [facility] [address] [place], [place] [address] (Wo rk) documented as of this encounter Procedures Procedure Name Priority Date/Time Associated Diagnosis Comme nts HEMOGRAM Routine 03/08/2018 5:40 AM Results f or this EDT procedure are i n the results section. BASIC METABOLIC Routine 03/08/2018 5:40 AM Result s for this PANEL (NON-FASTING) EDT procedur e are in the results section. APD LAB RESULT Routine 03/07/2018 5:45 AM Results for this EDT procedure are i n the results section. HEMOGRAM Routine 03/07/2018 5:45 AM Results f or this EDT procedure are i n the results section. BASIC METABOLIC Routine 03/07/2018 5:45 AM Result s for this PANEL (NON-FASTING) EDT procedur e are in the results section. documented in this encounter Results (ABNORMAL) Basic Metabolic Panel (non-fasting) (03/08/2018 5:40 AM EDT) Analysis Performed At [facility] Time Signature Sodium 141 135 - 145 [facility] (External mmol/L [facility]) Potassium 3.8 3.5 - 5.1 [facility] (External mmol/L [facility]) Chloride 107 98 - 107 [facility] (External mmol/L [facility]) CO2 24 21 - 32 [facility] (External mmol/L [facility]) Anion Gap 13.8 9 - 16.5 [facility] (External mmol/L [facility]) Osmolality 277 261 - 280 [facility] (External mosm/kg [facility]) Glucose Lvl 121 (ExtH) 74 - 106 [facility] mg/dL [facility] BUN 24 (ExtH) 7 - 18 [facility] mg/dL [facility] Creatinine 1.07 0.70 - [facility] (External 1.30 mg/dL [facility]) BUN/Cre Ratio 22.4 7.0 - 25.0 [facility] (External [facility]) Estimated GFR > 60 mL/min [facility] (External [facility]) Comment: Estimated GFR is to [...] ry ents with diabetic kidney disease. Calcium 8.5 (External Lab) 8.5 - 10.1 mg/dL [facility] Specimen Anatomical Collection Method Collection Time Receive d Time (Source) Location / / Volume Laterality 03/08/2018 5:40 AM 8 6:25 EDT AM EDT Thierno LEPE CHEMISTRY ORDERABLES Performing Organization Address City/State/ZIP Code Phon e Number [facility] [address] [place], [place] [address] (ABNORMAL) Hemogram (03/08/2018 5:40 AM EDT) [facility] gist Method Time Signature WBC 7.8 4.0 - [facility] (External 10.0 [facility]) 10^3/uL RBC 3.95 4.63 - [facility] (ExtL) 6.08 [facility] 10^6/uL Hemoglobin 12.0 13.7 - [facility] (ExtL) 17.5 g/dL [facility] Hematocrit 34.6 40.0 - [facility] (ExtL) 51.0 % [facility] MCV 87.6 79.0 - [facility] (External 92.0 fL [facility]) MCH 30.4 25.6 - [facility] (External 32.2 pg [facility]) MCHC 34.7 32.0 - [facility] (External 36.5 g/dL [facility]) RDWCV 12.9 10.9 - [facility] (External 14.4 % [facility]) RDWSD 40 35 - 46 [facility] (External fL [facility]) Platelets 153 145 - 370 [facility] (External 10^3/uL [facility]) MPV 11.3 9.0 - [facility] (External 12.0 fL [facility] Lab) Neutrophils % 72.7 34.0 - [facility] (ExtH) 71.0 % [facility] Lymphocytes % 20.7 19.0 - [facility] (External 53.0 % [facility]) Monocytes % 6.0 4.0 - [facility] (External 13.0 % [facility]) Eosinophils % 0.5 0.0 - 7.0 [facility] (External % [facility]) Basophils % 0.1 0.0 - 2.0 [facility] (External % [facility]) Neutr Abs (ANC) 5.7 1.5 - 6.3 [facility] (External ABS # [facility]) Lymphocytes Abs 1.6 1.0 - 3.6 [facility] (External ABS # [facility]) Monocyte Abs 0.5 0.2 - 1.0 [facility] (External ABS # [facility]) Eosinophils Abs 0.0 0.0 - 0.5 [facility] (External ABS # [facility]) Basophils Abs 0.0 0.0 - 0.2 [facility] (External ABS # [facility] Lab) Specimen Anatomical Collection Method Collection Time Receive d Time (Source) Location / / Volume Laterality 03/08/2018 5:40 AM 8 6:25 EDT AM EDT Thierno LEPE HEMATOLOGY ORDERABLES Performing Organization Address City/State/ZIP Code Phon e Number [facility] [address] [place], [place] [address] (ABNORMAL) APD Lab Result (03/07/2018 5:45 AM EDT) Patholo gist Method Time Signature APD LAB MANUAL [facility] RESULT DIFFERENTIAL [facility] (EXTERNAL/ABN) Specimen Anatomical Collection Method Collection Time Receive d Time (Source) Location / / Volume Laterality 03/07/2018 5:45 AM 8 6:31 EDT AM EDT Narrative [facility] - 03/07/2018 7:4 7 AM EDT Component ? Value ?RefRange ??Units ? Status Abn? NEUTROPHILS ? 9 3 ? 34-71 ? % ? F ?H LYMPHOCYTES ? 4 ?19-53 ? % ? F ?L MONOCYTES ? 3 ?4-13 ?% ? F ?L EOSINOPHILS ? 0 ?0-7 ? % ? F ? BASOPHILS ? 0 ?0-1 ? % ? F ? NEUTROPHILS ? 1 3.3 ? 1.5-6.3 ?? ABS # ? F ?H LYMPHOCYTES ? 0 .6 ?1.0-3.6 ?? ABS # ? F ?L MONOCYTES ? 0.4 ?0.2-1.0 ?? ABS # ? F ? EOSINOPHILS ? 0 .0 ?0.0-0.5 ?? ABS # ? F ? BASOPHILS ? 0.0 ?0.0-0.2 ?? ABS # ? F ? RBC MORPHOLOGY ?NO RMAL ? N/N ? F ? MORPHOLOGY ? PLT ESTIM/MORPH ? NOR MAL ? N/N ? F ? EST/MORPH ? Thierno LEPE POINT OF CARE TEST ORDERABLE S Performing Organization Address City/State/ZIP Code Phon e Number [facility] [address] [place], [place] [address] (ABNORMAL) Basic Metabolic Panel (non-fasting) (03/07/2018 5:45 AM EDT) Analysis Performed At Patho logist Time Signature Sodium 139 135 - 145 [facility] (External mmol/L [facility] Lab) Potassium 4.4 3.5 - 5.1 [facility] (External mmol/L [facility] Lab) Chloride 104 98 - 107 [facility] (External mmol/L [facility] Lab) CO2 25 21 - 32 [facility] (External mmol/L [facility] Lab) Anion Gap 14.4 9 - 16.5 [facility] (External mmol/L [facility] Lab) Osmolality 276 261 - 280 [facility] (External mosm/kg [facility]) Glucose Lvl 165 (ExtH) 74 - 106 [facility] mg/dL [facility] BUN 23 (ExtH) 7 - 18 [facility] mg/dL [facility] Creatinine 1.17 0.70 - [facility] (External 1.30 mg/dL [facility]) BUN/Cre Ratio 19.7 7.0 - 25.0 [facility] (External [facility] Lab) Estimated GFR > 60 mL/min [facility] (External [facility] Lab) Comment: Estimated GFR is to [...] ry ents with diabetic kidney disease. Calcium 9.0 (External Lab) 8.5 - 10.1 mg/dL [facility] Specimen Anatomical Collection Method Collection Time Receive d Time (Source) Location / / Volume Laterality 03/07/2018 5:45 AM 8 6:31 EDT AM EDT Thierno LEPE CHEMISTRY ORDERABLES Performing Organization Address City/[facility] Phon e Number [facility] [address] [place], [place] [address] (ABNORMAL) Hemogram (03/07/2018 5:45 AM EDT) P athologist Signature WBC 14.3 4.0 - 10.0 [facility] DAY (ExtH) 10^3/uL HOSPITAL RBC 4.13 4.63 - [facility] DAY (ExtL) 6.08 HOSPITAL 10^6/uL Hemoglobin 12.6 13.7 - [facility] DAY (ExtL) 17.5 g/dL HOSPITAL Hematocrit 35.6 40.0 - [facility] DAY (ExtL) 51.0 % HOSPITAL MCV 86.2 79.0 - [facility] DAY (External 92.0 fL HOSPITAL Lab) MCH 30.5 25.6 - [facility] DAY (External 32.2 pg HOSPITAL Lab) MCHC 35.4 32.0 - [facility] (External 36.5 g/dL HOSPITAL Lab) RDWCV 12.7 10.9 - [facility] DAY (External 14.4 % HOSPITAL Lab) RDWSD 39 35 - 46 fL [facility] (External HOSPITAL Lab) Platelets 199 145 - 370 [facility] (External 10^3/uL [facility]OSPITAL Lab) MPV 11.2 9.0 - 12.0 [facility] (External fL [facility]OSPITAL Lab) Specimen Anatomical Collection Method Collection Time Receive d Time (Source) Location / / Volume Laterality 03/07/2018 5:45 AM 8 6:31 EDT AM EDT Thierno LEPE HEMATOLOGY ORDERABLES Performing Organization Address City/[facility]/ZIP Code Phon e Number [facility] [address] [place], [place] [address] documented in this encounter Visit Diagnoses Not on filedocumented in this encounter Care Teams Manager Of Disaster Recovery Relationship Specialty Start Date End Date Jermain Montalvo DO PCP - General 01/28/[address] [place] [address] documented as of this encounter
--- OUTSIDE RECORDS SUMMARY | 2022-03-08 00:35 | XMS_ITS | Encounter Summary ---
:1965 Author Organization [facility] [place] [address] Care Team Providers Name Role Phone Jermain Montalvo DO Primary Care Provider Encounter Details Date Type Department Care Team Description 08/07/2017 Abstract Luisa Gross Conversion Apd Conversion, Flowsheet Results Provider, [address] [place] [address] Social History Tobacco Use Types Packs/Day Years Used Date Never Smoker Sex Assigned at Date Recorded Not on file documented as of this encounter Last Filed Vital Signs Vital Sign Reading Time Taken Comments Blood Pressure 126/69 08/07/2017 11:09 Sourced from AP D AM EST Conversion Pulse - - Temperature - - Respiratory Rate - - Oxygen Saturation - - Inhaled Oxygen - - Concentration Weight 95.9 kg (211 lb 6.7 08/07/2017 11:09 Sourced fro m APD oz) AM EST Conversion Height 185 cm (6' 0.84) 08/07/2017 11:09 Sourced from APD AM EST Conversion Body Mass Index 28.02 08/07/2017 11:09 AM EST documented in this encounter Plan of Treatment Upcoming Encounters Date Type Specialty Care Team Description 03/15/2022 Procedure visit Dermatology Olamide Grayson MD [facility] [address] [place], [place] [address] (Wo rk) documented as of this encounter Visit Diagnoses Not on filedocumented in this encounter Care Teams Intellectual Property Counsel Relationship Specialty Start Date End Date Jermain Montalvo DO PCP - General 01/28/[address] [place] [address] documented as of this encounter
--- OUTSIDE RECORDS SUMMARY | 2022-03-08 00:35 | XMS_ITS | Encounter Summary ---
:1965 Author Organization [facility] Address [facility] [address] [place] [address] Care Team Providers Name Role Phone Jermain Montalvo DO Primary Care Provider Encounter Details Date Type Department Care Team Description 03/18/2019 Orders Only Orthopaedics at [facility] Garc[facility], Stat post total Charlton Day right knee replacement [address] [place] [address] 02/26/19 (Primary Dx) [phone] [place] [address] Social History Tobacco Use Types Packs/Day Years Used Date Never Smoker Smokeless Tobacco: Never Used Alcohol Use Standard Drinks/Week Comments Not Currently 0 (1 standard drink = 0.6 oz pure alcoho l) Sex Assigned at Date Recorded Not on file documented as of this encounter Plan of Treatment Upcoming Encounters Date Type Specialty Care Team Description 03/15/2022 Procedure visit Dermatology Olamide Grayson MD [facility] [address] [place], [place] [address] (Wo rk) documented as of this encounter Results XR Knee 3 Views Right (03/29/2019 12:55 PM EDT) Anatomical Region Laterality Modality Knee Right Digital Radiography Specimen (Source) Anatomical Location Collection Method / Collectio n Time Received Time / Laterality Volume Impressions 03/29/2019 2:14 PM EDT Interval postoperative changes status post right total knee arthroplasty. No immediate hardware complications. Persis tent anterior knee soft tissue swelling and skin irregularity. Small knee joint effusion. Thank you for letting us participate in the care of this patient. For questions regarding this report, please contact th e number below. ? Narrative 03/29/2019 2:14 PM EDT EXAMINATION: XR KNEE 3 VIEWS RIGHT CLINICAL HISTORY: assess healing. s/p RT TKR WB AP LAT AND SUNRISE VIEW TECHNIQUE: 3 views RIGHT knee. AP view of the bilat eral knees, lateral and sunrise views the right knee. COMPARISON: Right knee radiographs 12/05/2018. FINDINGS: Interval postoperative changes status po st right total knee arthroplasty. Anterior knee soft tissue swelling. Smal l knee joint effusion. No periprosthetic fracture or bone resorption. Small quadr iceps enthesophyte. Incompletely evaluated left total knee arthroplasty. Soft tissue irregularity the anterior knee may correspond to the skin incision . Procedure Note Olamide Garcia MD - 03/29/2019Formattin g of this note might be different from the original. EXAMINATION: XR KNEE 3 VIEWS RIGHT CLINICAL HISTORY: assess healing. s/p RT TKR WB AP LAT AND SUNRISE VIEW TECHNIQUE: 3 views RIGHT knee. AP view of the bilat eral knees, lateral and sunrise views the right knee. COMPARISON: Right knee radiographs 12/05/2018. FINDINGS: Interval postoperative changes status po st right total knee arthroplasty. Anterior knee soft tissue swelling. Smal l knee joint effusion. No periprosthetic fracture or bone resorption. Small quadr iceps enthesophyte. Incompletely evaluated left total knee arthroplasty. Soft tissue irregularity the anterior knee may correspond to the skin incision . IMPRESSION Interval postoperative changes status po st right total knee arthroplasty. No immediate hardware complications. Persis tent anterior knee soft tissue swelling and skin irregularity. Small knee joint effusion. Thank you for letting us participate in the care of this patient. For questions regarding this report, please contact e number below. Mesfin Leach MD IMG DX ORDERABLES documented in this encounter Visit Diagnoses Diagnosis Status post total right knee replacement with Dr. Leach on 02/26/19 - Primary Status post total right knee replacement with Dr. Leach on 02/26/19 documented in this encounter Care Teams Core Feeder Relationship Specialty Start Date End Date Jermain Montalvo DO PCP - General 01/28/[address] [place] [address] documented as of this encounter
--- OUTSIDE RECORDS SUMMARY | 2022-03-08 00:35 | XMS_ITS | Encounter Summary ---
:1965 Author Organization [facility] [address] Care Team Providers Name Role Phone Jermain Montalvo DO Primary Care Provider Reason for Referral Consultation (Routine) - Duplicate Referral Specialty Diagnoses / Procedures Referred By Contact Refer red To Contact Dermatology Diagnoses Basal cell carcinoma, face Alayna Villalba MD Leboeuf, Matthew R, MD [facility] DR [facility] [address] [place] [address] Fax: Referral ID Status Reason Start Expiration Visits Visits Date Date Requested Authorized [id number] Duplicate Consult, 12/15/2020 12/15/2021 1 1 Referral Test & Treat Encounter Details Date Type Department Care Team Description 12/15/2020 Telephone Dermatology at [facility] Alayna Villalba MD [address] [place] [place] [address] [facility] [phone] [place], [place] [address] (Wo rk) Social History Tobacco Use Types Packs/Day Years Used Date Never Smoker Smokeless Tobacco: Never Used Alcohol Use Standard Drinks/Week Comments Not Currently 0 (1 standard drink = 0.6 oz pure alcoho l) Sex Assigned at Date Recorded Not on file documented as of this encounter Miscellaneous Notes Telephone Encounter - Trina Waldron LPN - 12/15/2020 3:39 PM EDT Referral to [facility] per Dr. Villalba documented in this encounter Plan of Treatment Upcoming Encounters Date Type Specialty Care Team Description 03/15/2022 Procedure visit Dermatology Olamide Grayson MD [facility] [address] [place], [place] [address] (Wo rk) Scheduled Referrals Name Type Priority Associated Order Schedule Diagnoses Referral to Outpatient Referral Routine Basal cell Ordered: Dermatology carcinoma, face 12/15/2020 documented as of this encounter Visit Diagnoses Diagnosis Basal cell carcinoma, face Basal cell carcinoma of skin of other an d unspecified parts of face documented in this encounter Care Teams Bin Packer Relationship Specialty Start Date End Date Jermain Montalvo DO PCP - General 01/28/13 [facility] [address] [place] [address] documented as of this encounter
--- OUTSIDE RECORDS SUMMARY | 2022-03-08 00:35 | XMS_ITS | Encounter Summary ---
:1965 Author Organization [facility] [place] [address] Care Team Providers Name Role Phone Jermain Montalvo DO Primary Care Provider Encounter Details Date Type Department Care Team Description 12/05/2018 Abstract Luisa Gross Conversion Apd Conversion, Flowsheet Results Provider, [place] [address] Social History Tobacco Use Types Packs/Day Years Used Date Never Smoker Sex Assigned at Date Recorded Not on file documented as of this encounter Last Filed Vital Signs Vital Sign Reading Time Taken Comments Blood Pressure - - Pulse - - Temperature - - Respiratory Rate - - Oxygen Saturation - - Inhaled Oxygen - - Concentration Weight 92.5 kg (203 lb 14.8 12/05/2018 10:38 Sourced fr om APD oz) AM EDT Conversion Height 185 cm (6' 0.84) 12/05/2018 10:38 Sourced from APD AM EDT Conversion Body Mass Index 27.03 12/05/2018 10:38 AM EDT documented in this encounter Plan of Treatment Upcoming Encounters Date Type Specialty Care Team Description 03/15/2022 Procedure visit Dermatology Olamide Grayson MD [facility] DERMATOLOGY [place], [place] [address] (Wo rk) documented as of this encounter Visit Diagnoses Not on filedocumented in this encounter Care Teams Superintendent Renting Managing Relationship Specialty Start Date End Date Jermain Montalvo DO PCP - General 01/28/[address] [place], [place] [address] documented as of this encounter
--- OUTSIDE RECORDS SUMMARY | 2022-03-08 00:35 | XMS_ITS | Encounter Summary ---
:1965 Author Organization [facility] Address [facility] [place] [address] Care Team Providers Name Role Phone Jermain Montalvo DO Primary Care Provider Encounter Details Date Type Department Care Team Description 02/22/2019 Orders Only Orthopaedics at [facility] Ary Becerra [place] [address] [place] [address] [phone] Social History Tobacco Use Types Packs/Day Years [...] Olamide Grayson MD [facility] ER [address] [place], [place] [address] (Wo rk) documented as of this encounter Visit Diagnoses Not on filedocumented in this encounter Care Teams Rip/Mould Operator Relationship Specialty Start Date End Date Jermain Montalvo DO PCP - General 01/28/[address] [place] [address] documented as of this encounter
--- OUTSIDE RECORDS SUMMARY | 2022-03-08 00:35 | XMS_ITS | Encounter Summary ---
:1965 Author Organization [facility] Address [facility] [place] [address] Care Team Providers Name Role Phone Jermain Montalvo DO Primary Care Provider Reason for Visit Reason Comments Skin Lesion Encounter Details Date Type Department Care Team Description 08/09/2021 Office Visit Dermatology at [facility] Su perficial basal cell carcinoma (BCC); Annmarie ALFORD Epidermal inclusion cyst; [address] [facility] History of basal cell carcin anthony (B[place]) [place] [address] [facility]-DERMATOLOGY [place], [place] [address] Social History Tobacco Use Types Packs/Day Years Used Date Never Smoker Smokeless Tobacco: Never Used Alcohol Use Standard Drinks/Week Comments Not Currently 0 (1 standard drink = 0.6 oz pure alcoho l) Sex Assigned at Date Recorded Not on file documented as of this encounter Progress Notes Alayna Villalba MD - 08/09/2021 8:00 AM EST Images from the original note were not included. DEPARTMENT OF DERMATOLOGY Medical Dermatology Clinic Provider: ALAYNA VILLALBA MD Preferred name Checo Preferred contact method for results [x] Phone (Home) [] MyD-H [] Letter Permission to leave detailed message Yes Permission to discuss care with No Past Medical History Date, location, treatment Melanoma No DN No SCC No BCC Patient reported BCC on the ? left flank 12/07/20: Left scapula, sBCC (clinical diagnosis, LN2) 12/07/20: Midline lower back, sBCC (clinical diagnosis, LN2) 12/07/20: Right upper arm, sBCC (clinical diagnosis, LN2) 12/07/20: Right upper arm, sBCC (clinical diagnosis, LN2) 12/07/20: Left tricep, sBCC (clinical diagnosis, LN2) 12/07/20: Right temporal forehead, sBCC (Mohs 02/15/21) 12/07/20: Right trapezius, sBCC (NER 03/26/21) 12/07/20: Right lateral back, sBCC (ED&C 03/26/21) 12/07/20: Right anterior shoulder, sBCC (ED&C 03/26/21) 12/07/20: Right preauricular, BCC (Mohs 02/15/21) 12/07/20: Right paranasal, BCC (Mohs 02/01/21) 12/07/20: Right nasal dorsum, BCC (Mohs 02/01/21) AK Yes UV exposure & protection Sun exposure: High as teen/young adult Other relevant past medical history EIC (midline mid back) Family History Details Melanoma No NMSC Mother Other relevant family history No Social History Pre-Procedure Screening Details Allergy to lidocaine, epinephrine, Dermabond, chlorhexidine, or adhesives: No Bleeding disorder or blood thinners: No Pacemaker, defibrillator, deep brain stimulator, cochlear implant: No History of Present Illness: Checo Sanchez is a 56 y.o. established patient who returns to the clinic today for re-evaluation of EIC on the back. Patient is interested in treatment options, including surgical excision. Last FSE: N/A Last visit at [facility] Derm: 03/26/2021 Last visit with this provider: 03/26/2021 Medications: Reviewed in eD-H Allergies: Reviewed in eD-H Skin Examination: A focused skin examination of the back, upper extremities, and face, significant for the following: Assessment/Plan: A. sBCC - 0.6 cm bright red, well-demarcated, angulated plaque with slight scale at edge of hypopigmented area on the left scapula. - Discussed treatment with cryotherapy; patient would like to proceed. - Instructed patient to return to clinic for re-evaluation if lesion does not resolve as expected with this treatment. Procedure: Destruction of malignant lesion with cryotherapy (LN2). Location: Left scapula Number: 1 Discussed procedure and expectations, including risks (especially hypopigmentation) and benefits. Verbal consent obtained. Frozen with LN2, 45 second thaw time, twice. There were no complications; patient tolerated the procedure well. Post-procedure expectations and wound care were reviewed. - Final diameter: 0.6 cm B. Epidermal Inclusion Cyst - 3 cm subcutaneous nodule on the midline mid back. - Discussed benign nature of lesion and provided reassurance. - Discussed that definitive treatment would require surgical excision. - Discussed treatment with ILK. Patient would like to proceed. Procedure: Intra-lesional Kenalog injection Location: Midline mid back Kenalog 20 mg/mL, total 0.2 mL Discussed indications for the procedure and expectations including risks, benefits, and potential side effects (hypopigmentation, ulceration, and skin atrophy). Skin prepped with alcohol and Kenalog injected intralesionally. There were no complications; patient tolerated the procedure well. Wound dressed with adhesive bandage as needed. LOT: [id number] EXP: 11/2022 [facility]: [id number] C. History of BCC - Well-healed scars per skin history. - No evidence of recurrence; will continue to monitor. Other: - N/A RTC: Late September 2021 for FSE & recheck A [] Note routed to city secretary [] Recall placed in scheduling system [x] Appointment scheduled before exiting SHANA Farah and Ary Rao have performed the documentation for this encounter in the presence of and acting as scribes for ALAYNA VILLALBA MD. I performed the above scribed service and agree with the accuracy of the documentation in this encounter. Reviewed and signed by: ALAYNA VILLALBA MD Dermatology [facility] documented in this encounter Plan of Treatment Upcoming Encounters Date Type Specialty Care Team Description 03/15/2022 Procedure visit Dermatology Olamide Grayson MD [facility] DERMATOLOGY [place], [place] [address] (Wo rk) documented as of this encounter Visit Diagnoses Diagnosis Superficial basal cell carcinoma (BCC) Epidermal inclusion cyst Sebaceous cyst History of basal cell carcinoma (BCC) documented in this encounter Care Teams Complaint Operator Relationship Specialty Start Date End Date Jermain Montalvo DO PCP - General 01/28/[address] [place] [address] documented as of this encounter
--- OUTSIDE RECORDS SUMMARY | 2022-03-08 00:35 | XMS_ITS | Encounter Summary ---
:1965 [place] [address] Care Team Providers Name Role Phone Jermain Montalvo DO Primary Care Provider Reason for Visit Reason Comments Skin Check Encounter Details Date Type Department Care Team Description 12/04/2013 Follow-Up Dermatology at [facility] Jaxson Lazcano MD Scar (Primary Dx); [facility] [place] (actinic keratosis) [address] [place] [address] [facility] [phone] RD-DERMATOLOGY [place], [place] [address] (Wo rk) Social History Tobacco Use Types Packs/Day Years Used Date Never Smoker Sex Assigned at Date Recorded Not on file documented as of this encounter Patient Instructions Patient InstructionsHugo Hernandez LPN - 12/04/2013 2:32 PM EDT I would like you to sign up for MetaCDN-H, which will give you secure online access to your electronic medical record at [facility] and the ability to communicate with your health care team when and where it???s most convenient for you. With MetaCDN-H you will be able to: - look at parts of your medical record including test results and office notes - send and receive messages to/from me and your other providers - renew prescriptions - schedule appointments. To sign up, go to [email or web address] and click I have an activation code and follow the instructions. Here is your activation code: [email or web address] Expires: 01/18/2014 2:32 PM Remember, myD-H is NOT for urgent needs! Always dial 911 for medical emergencies. documented in this encounter Progress Notes Wilson Jain MD - 12/09/2013 4:56 PM EDT I was the supervising physician working with dermatology resident Dr. Lazcano in the dermatology clinic during this patient visit. The level of Resident supervision for this patient visit was indirect supervision with direct supervision immediately available. (definition: [facility] Policy Statement on [facility] Medical Education, Supervision of Graduate Medical Trainees) I was immediately available to Dr. Lazcano for questions and discussion regarding this visit. I have reviewed her encounter note detailsand level of service. WILSON JAIN MD Staff Physician Siobhan Lazcano MD - 12/04/2013 2:23 PM EDT DERMATOLOGY - ESTABLISHED PATIENT FOLLOW-UP Date of service: 12/04/2013 Checo Sanchez : 1965 Dermatology Resident Note: Siobhan Lazcano MD Chief Problem: Skin check Chief Complaint Patient presents with ??? Skin Check Mr. Checo Sanchez is a 48 y.o. male. This is an established patient, last seen by myself on 10/15/2013. Here to follow up on treatment of Possible Inflamed/irritated SK vs AK vs NMSC of right cheek treated with LN2. Patient also had injection of hypertrophic scar left trunk at area of previous BCC exci cristobal 01/2013. Patient reports both are healing well. He feels the lesion on the left cheek has resolved. His scar is also no longer bothersome. Skin History: BCC-left chest/excised 01/2013, outside facility seborrheic keratosis actinic keratosis Tinea Versicolor Gutt[place] hypomelanosis lateral and posterior neck Dermatofibroma-right lateral knee Medical History: There is no problem list on file for this patient. Medications: Current Outpatient Prescriptions Medication Sig Dispense Refill ??? gemfibrozil (LOPID) 600 mg tablet Take 600 mg by mouth 2 times daily (before meals). ??? omeprazole (PRILOSEC) 20 mg capsule Take 40 mg by mouth daily. Allergies: No Known Allergies Family History: No family history of melanoma or non-melanoma skin cancer No family history of atopy, psoriasis or other skin disease Social History: Worked for years on a 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 - Skin: As per HPI; no other skin concerns. Examination: - Constitutional: Patient was alert, well-appearing and in no noticeable distress. - Skin: An abbreviated skin exam was performed; this includes: left chest and right cheek. Specific skin findings: 1. 3-4 mm hypopigmented atrophic area right cheek at site previously treated with LN2 2. [place] elliptical shaped scar left chest Diagnosis/Assessment/Treatment Plan: 1. Possible Inflamed/irritated SK vs AK of right cheek treated with LN2- now appears resolved, only scar present. Follow up in 6 months for re-evaluation. 2. Hypertrophic scar- improved with IL kenalog treatment Patient declines additional treatment at this time. Advised patient to follow up if scar becomes more bothersome. Follow-up: RTC in 6 months. Instructed to call for questions or concerns. Siobhan Lazcano MD Resident in Dermatology [facility] Staff electric welder helper: Wilson Jain MD, PhD Section of Dermatology [facility] documented in this encounter Plan of Treatment Upcoming Encounters Date Type Specialty Care Team Description 03/15/2022 Procedure visit Dermatology Olamide Grayson MD [facility] [address], [place] [address] (Wo rk) documented as of this encounter Visit Diagnoses Diagnosis Scar - Primary Scar condition and fibrosis of skin AK (actinic keratosis) Actinic keratosis documented in this encounter Care Teams Sales Office Manager Relationship Specialty Start Date End Date Jermain Montalvo DO PCP - General 01/28/[address] [place] [address] documented as of this encounter
--- OUTSIDE RECORDS SUMMARY | 2022-03-08 00:35 | XMS_ITS | Encounter Summary ---
:1965 Author Organization [facility] [place] [address] Care Team Providers Name Role Phone Jermain Montalvo DO Primary Care Provider Encounter Details Date Type Department Care Team Description 02/05/2019 Orders Only Orthopaedics at [facility] Elsa Enriquez Day RN [address] [place] [address] Social History Tobacco Use Types Packs/Day Years Used Date Never Smoker Sex Assigned at Date Recorded Not on file documented as of this encounter Plan of Treatment Upcoming Encounters Date Type Specialty Care Team Description 03/15/2022 Procedure visit Dermatology Olamide Grayson MD [facility] ER [address] [place], [place] [address] (Wo rk) documented as of this encounter Visit Diagnoses Not on filedocumented in this encounter Care Teams Post Secondary Professional Relationship Specialty Start Date End Date Jermain Montalvo DO PCP - General 01/28/[address] [place] [address] documented as of this encounter
--- OUTSIDE RECORDS SUMMARY | 2022-03-08 00:35 | XMS_ITS | Encounter Summary ---
:1965 Author Organization [facility] [place] [address] Care Team Providers Name Role Phone Jermain Montalvo DO Primary Care Provider Encounter Details Date Type Department Care Team Description 12/05/2018 Interpretation Only Ary Gomez , [facility] [address] [place] [address] [address] [phone] [place], [place] [address] (Wo rk) Social History Tobacco Use Types Packs/Day Years Used Date Never Smoker Sex Assigned at Date Recorded Not on file documented as of this encounter Plan of Treatment Upcoming Encounters Date Type Specialty Care Team Description 03/15/2022 Procedure visit Dermatology Olamide Grayson MD [facility] [address] [place], [place] [address] (Wo rk) documented as of this encounter Procedures Procedure Name Priority Date/Time Associated Diagnosis Comme nts XR KNEE AP LAT Routine 12/05/2018 10:20 AM Result s for this AXIAL PATELLA LEFT EDT procedure are in the results section. documented in this encounter Results XR Knee 3 Views Left (12/05/2018 10:20 AM EDT) Anatomical Region Laterality Modality Knee Left Radiographic Imaging Specimen (Source) Anatomical Collection Method Collection Time Re ceived Time Location / / Volume Laterality 12/05/2018 10:20 AM EDT Impressions 12/05/2018 12:02 PM EDT Stable appearance of the left knee joint prosthesis Thank you for letting us participate in the care of this patient. For questions regarding this report, please contact e number below. ? Narrative 12/05/2018 12:02 PM EDT EXAMINATION: KNEE BL/WB & 2+VWS -LT CLINICAL HISTORY: ASSESS HEALING S/P LT TKR AP LAT AND SUNRISE VIEW , ?? TECHNIQUE: Left knee 3 views COMPARISON: 04/04/2018 FINDINGS: Components of the left knee joint prosth esis appear intact and stable compared with 04/04/2018. There is no joint effusi on and the patella position is good. On the AP standing views on the right side there is significant narrowing of the medial joint space as before Procedure Note Kobe Dorman MD - 12/05/2018Format ting of this note might be different from the original. EXAMINATION: KNEE BL/WB & 2+VWS -LT CLINICAL HISTORY: ASSESS HEALING S/P LT TKR AP LAT AND SUNRISE VIEW , TECHNIQUE: Left knee 3 views COMPARISON: 04/04/2018 FINDINGS: Components of the left knee joint prosth esis appear intact and stable compared with 04/04/2018. There is no joint effusi on and the patella position is good. On the AP standing views on the right side there is significant narrowing of the medial joint space as before IMPRESSION Stable appearance of the left knee joint prosthesis Thank you for letting us participate in the care of this patient. For questions regarding this report, please contact e number below. Ary LEPE IMG DX ORDERABLES documented in this encounter Visit Diagnoses Not on filedocumented in this encounter Care Teams International Student Counselor Relationship Specialty Start Date End Date Jermain Montalvo DO PCP - General 01/28/[address] [place] [address] documented as of this encounter
--- OUTSIDE RECORDS SUMMARY | 2022-03-08 00:35 | XMS_ITS | Encounter Summary ---
:1965 Author Organization [facility] [place] [address] Care Team Providers Name Role Phone Jermain Montalvo DO Primary Care Provider Reason for Referral Consultation (Routine) - Closed Specialty Diagnoses / Procedures Referred By Contact Refer red To Contact Dermatology Diagnoses Neoplasm of uncertain behavior of skin Basal cell carcinoma (BCC) of forehead Alayna Villalba MD Leboeuf, Matthew R, MD [facility] DR [facility] [address] [place] [address] Fax: Referral ID Status Reason Start Date Expiration Date Visits V isits Requested Authorized [id number] Closed Consult, 12/07/2020 12/07/2021 1 1 Test & Treat Reason for Visit Reason Comments Skin Check Waist-up exam Consultation (Routine) - Closed Specialty Diagnoses / Procedures Referred By Contact Refer red To Contact Dermatology Diagnoses Photokeratitis, unspecified eye HX BCC Jermain Montalvo DO [facility] [address] [place], [place] [address] [address] [place] [address] Fax: Referral ID Status Reason Start Date Expiration Date Visits V isits Requested Authorized [id number] Closed Consult, Test 08/11/2020 08/11/2021 6 6 & Treat Connection Center PCP Updated and/or Approved Encounter Details Date Type Department Care Team Description 12/07/2020 Office Visit Dermatology at [facility] DeejayAlayna fan, Connelly perficial basal cell carcinoma (BCC) (Primary Dx); Annmarie ALFORD Neoplasm of uncertain behavior of skin; [address] [facility] Basal cell carcinoma (BCC), unspecified site; [place] [address] Tinea corporis; [phone] [facility] Epidermal inclu cristobal cyst; RD-DERMATOLOGY History of basal cell carcinoma (BCC) [place], [place] [address] Social History Tobacco Use Types Packs/Day Years Used Date Never Smoker Smokeless Tobacco: Never Used Alcohol Use Standard Drinks/Week Comments Not Currently 0 (1 standard drink = 0.6 oz pure alcoho l) Sex Assigned at Date Recorded Not on file documented as of this encounter Patient Instructions Patient InstructionsKami Whitten CCMA - 12/07/2020 9:15 AM EDT Shave Biopsy Wound Care Instructions Your treatment today: You have had a shave biopsy of your skin, which is a removal of tissue for examination under a microscope. This wound will heal without stitches. Allow 3-6 weeks for the wound to heal fully. If bleeding should occur, hold firm, constant pressure against the wound for 15- 20 minutes (with no peeking). If bleeding continues, call the clinic or go to your local emergency department. Please allow 1-2 weeks for the biopsy results to return. Based on the results, your physician or nurse will contact you by phone or letter; follow-up will be discussed at that time. If in 2 weeks, you have not heard from us, please feel free to call to request your biopsy results. Wound care instructions: Keep the bandage placed over the wound dry and intact for 24 hours. Afterwards, perform the following wound care daily: ?? Wash your hands. ?? Remove the bandage, clean the area with soap and water, and gently pat dry. ?? Apply a small amount of Vaseline and cover with a Band-Aid. ?? Repeat daily until the wound is healed fully. A small amount of yellow drainage is part of the normal healing process. The area might appear as a small depression with redness around the edge of the wound; this is normal. Please contact the clinicif you notice any of the following signs of infection: increased pain, tenderness, drainage, or redness that becomes hot or hard around the wound. Contact information: On weekdays (8am to 5pm), please call the clinic at [phone]. After 5pm, and on weekends and holidays, please call the hospital at [phone] and ask for the Hepatologist [facility] Practitioner. documented in this encounter Progress Notes Alayna Villalba MD - 12/07/2020 9:15 AM EDT Images from the original note were not included. 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 left flank [place] Yes Immunosuppression or malignancy No Blistering sunburns or tanning bed use Yes Lots of sun exposure as a teen/young adult Other relevant past medical history No Family History Y/N Parents, siblings, children Melanoma No NMSC Yes Mother Other No Procedure Screening Questions Y/N Allergies to lidocaine or epinephrine No Blood thinners Yes: ASA 81 mg Pacemaker or defibrillator No History of Present Illness: Checo Sanchez is a 55 y.o. new patient to me (last seen by Dr. Lazcano) referred by Jermain Montalvo DO, for photokeratitis. Patient presents to the clinic today for a waist-up examination with the following concerns: - Non-healing lesions on the right preauricular and right lower eyelid, both with a history of pruritus and easy bleeding. - Lesions on the left and right upper arms - Non-pruritic rash on left chest, present for 4-5 years - Clogged pore on the right upper back Medications: Reviewed in eD-H Allergies: Reviewed in eD-H Skin Examination: Waist-up skin examination: Examination of the scalp, hair, face, ears, neck, back, chest, abdomen, and upper extremities was normal with the exception of the findings below. Significant Findings/Assessment/Plan A. Infiltrative BCC - 1.0 cm pink, telangiectatic papule on the right temporal forehead (Figure 1, Specimen A). - Recommended a skin biopsy to confirm/clarify the nature of the skin lesion. After discussion of potential risks (scarring, bleeding, infection) and recurrence, patient agreed to proceed. - Patient denies known allergies to lidocaine and epinephrine. Procedure: Skin shave biopsy. Location: Right temporal forehead Time of procedure: 9:50 am Discussed indications for procedure and expectations including risks and benefits. Verbal consent obtained. Skin prepped with alcohol. Local anesthesia with 1% xylocaine, 1/100,000 epinephrine. A sample of the lesion was removed by shave technique to the level of the dermis and submitted to Pathology.Hemostasis obtained (AlCl). There were no complications; patient tolerated the procedure well. Wounddressed. Post-procedure expectations, wound care and activity restrictions reviewed. - Follow-up based on pathology results. B. Pigmented BCC - 0.6 cm pink, telangiectatic papule with pigment on the right trapezius (Figure 2,Specimen B). - Recommended a skin biopsy to confirm/clarify the nature of the skin lesion. After discussion of potential risks (scarring, bleeding, infection) and recurrence, patient agreed to proceed. Procedure: Skin shave biopsy. Location: Right trapezius Time of procedure: 9:51 am Discussed indications for procedure and expectations including risks and benefits. Verbal consent obtained. Skin prepped with alcohol. Local anesthesia with 1% xylocaine, 1/100,000 epinephrine. A sample of the lesion was removed by shave technique to the level of the dermis and submitted to Pathology.Hemostasis obtained (AlCl). There were no complications; patient tolerated the procedure well. Wounddressed. Post-procedure expectations, wound care and activity restrictions reviewed. - Follow-up based on pathology results. C. BCC - 1 cm pink, telangiectatic papule on the right lateral back (Figure 3, Specimen C). - Recommended a skin biopsy to confirm/clarify the nature of the skin lesion. After discussion of potential risks (scarring, bleeding, infection) and recurrence, patient agreed to proceed. Procedure: Skin shave biopsy. Location: Right lateral back Time of procedure: 9:52 am Discussed indications for procedure and expectations including risks and benefits. Verbal consent obtained. Skin prepped with alcohol. Local anesthesia with 1% xylocaine, 1/100,000 epinephrine. A sample of the lesion was removed by shave technique to the level of the dermis and submitted to Pathology.Hemostasis obtained (AlCl). There were no complications; patient tolerated the procedure well. Wounddressed. Post-procedure expectations, wound care and activity restrictions reviewed. - Follow-up based on pathology results. D. BCC - 1.0 cm pink, telangiectatic papule on the right anterior shoulder (Figure 4, Specimen D). - Recommended a skin biopsy to confirm/clarify the nature of the skin lesion. After discussion of potential risks (scarring, bleeding, infection) and recurrence, patient agreed to proceed. - Patient denies known allergies to lidocaine and epinephrine. Procedure: Skin shave biopsy. Location: Right anterior shoulder Time of procedure: 9:54 am Discussed indications for procedure and expectations including risks and benefits. Verbal consent obtained. Skin prepped with alcohol. Local anesthesia with 1% xylocaine, 1/100,000 epinephrine. A sample of the lesion was removed by shave technique to the level of the dermis and submitted to Pathology.Hemostasis obtained (AlCl). There were no complications; patient tolerated the procedure well. Wounddressed. Post-procedure expectations, wound care and activity restrictions reviewed. - Follow-up based on pathology results. E-G. BCCs - 0.7 cm pink telangiectatic papule on the right preauricular (Figure 5); 1.0 cm pink telangiectatic papule on the right paranasal (Figure 6); 0.3 cm pink telangiectatic papule on the right nasal dorsum (Figure 6) - Will refer to Mohs for frozen section biopsy and treatment based on characteristic clinical appearance. H-L. sBCCs - 0.6 cm bright red, well-demarcated, angulated plaque with slight scale on the left scapula (Figure 7). 0.5 cm bright red, well-demarcated, angulated plaque with slight scale on the midlinelower back (Figure 8). 1.6 cm and 0.3 cm bright red, well-demarcated, angulated plaques with slight scale on the right upper arm (Figure 9). 1.7 cm bright red, well-demarcated, angulated plaque with slight scale on the left tricep (Figure 10). - Discussed treatment with cryotherapy; patient would like to proceed. - Instructed patient to return to clinic for re-evaluation if lesion(s) does not resolve as expectedwith this treatment. Procedure: Destruction of malignant lesions with cryotherapy (LN2). Locations: Left scapula, midline lower back, right upper arm x 2, left tricep Number: 5 Discussed procedure and expectations, including risks (especially hypopigmentation) and benefits. Verbal consent obtained. Frozen with LN2, 45 second thaw time, twice. There were no complications; patient tolerated the procedure well. Post-procedure expectations and wound care were reviewed. - Final diameter: 0.6, 0.5, 1.6, 0.3, and 1.7 cm M. Tinea Corporis - Grouped well-demarcated scaly pink plaques on the left upper quadrant and left chest. Equivocal but positive RAY. - Start Rx ketoconazole 2% cream: Apply topically to affected area(s) on the left upper quadrant andleft chest twice daily as needed. O. Epidermal Inclusion Cyst - 2.5 cm subcutaneous nodule with overlying punctum on the midline upperback. - Discussed benign nature of lesion and provided reassurance. - No treatment necessary at this time. P. History of BCC - Well-healed scar on the left flank per skin history. - No evidence of recurrence; will continue to monitor. - Briefly discussed nicotinamide supplementation. Figure 1 - Right temporal forehead (Specimen A) Figure 2 - Right trapezius (Specimen B) Figure 3 - Right lateral back (Specimen C) Figure 4 - Right anterior shoulder (Specimen D) Figure 5 - Right preauricular Figure 6 - Right paranasal and right nasal dorsum Figure 7 - Left scapula Figure 8 - Midline lower back Figure 9 - Right upper arm x 2 Figure 10 - Left tricep Photo(s) taken and charted with patient's verbal consent. Other items to document in the assessment/plan if relevant: ??? Time spent (non face to face and face to face). Follow Up: RTC pending pathology and in 3 months for: [x] FSE [] Follow up [x] Note routed to junior legal secretary to schedule [] Recall placed in scheduling system [] Appointment scheduled before exiting If any questions or concerns arise, patient is welcome to return to clinic sooner. Ary Rao and Kami Whitten [facility] have performed the documentation for this encounter in the presence of and acting as scribes for ALAYNA VILLALBA MD. I performed the above scribed service and agree with the accuracy of the documentation in this encounter. Reviewed and signed by: ALAYNA VILLALBA MD Department of Dermatology [facility] documented in this encounter Plan of Treatment Upcoming Encounters Date Type Specialty Care Team Description 03/15/2022 Procedure visit Dermatology Olamide Grayson MD [facility] DR DERMATOLOGY [place], [place] [address] (Wo rk) Scheduled Referrals Name Type Priority Associated Order Schedule Diagnoses Referral to Outpatient Referral Routine Neoplasm of Ordered: Dermatology uncertain behavior of skin documented as of this encounter Procedures Procedure Name Priority Date/Time Associated Diagnosis Comme nts SPECIMEN TO Routine 12/07/2020 11:35 AM Neoplasm of Results for this PATHOLOGY EDT uncertain behavior procedure are in of skin the results section. SPECIMEN TO Routine 12/07/2020 11:35 AM Neoplasm of Results for this PATHOLOGY EDT uncertain behavior procedure are in of skin the results section. SPECIMEN TO Routine 12/07/2020 11:35 AM Neoplasm of Results for this PATHOLOGY EDT uncertain behavior procedure are in of skin the results section. SPECIMEN TO Routine 12/07/2020 11:35 AM Neoplasm of Results for this PATHOLOGY EDT uncertain behavior procedure are in of skin the results section. SURGICAL PATHOLOGY Routine 12/07/2020 9:45 AM Res ults for this REPORT EDT procedure are i n the results section. documented in this encounter Results Specimen to Pathology (12/07/2020 11:35 AM EDT) Specimen Anatomical Collection Method Collection Time Receive d Time (Source) Location / / Volume Laterality AP Specimen 12/07/2020 11:35 12/07/2020 7:10 AM EDT PM EDT Narrative [facility] - 12/07/2020 7:10 PM EDT Specimen requisition ordered. ??Separate Pathology report to follow Resulting Agency Comment Spec In Lab Alayna Villalba MD PATHOLOGY/CYTOLOGY ORDERABLE S Performing Organization Address City/State/ZIP Code Phon e Number [place] [phone] Specimen to Pathology (12/07/2020 11:35 AM EDT) Specimen Anatomical Collection Method Collection Time Receive d Time (Source) Location / / Volume Laterality AP Specimen 12/07/2020 11:35 12/07/2020 7:10 AM EDT PM EDT Narrative [facility] - 12/07/2020 7:10 PM EDT Specimen requisition ordered. ??Separate Pathology report to follow Resulting Agency Comment Spec In Lab Alayna Villalba MD PATHOLOGY/CYTOLOGY ORDERABLE S Performing Organization Address [facility] [place] [address] Specimen to Pathology (12/07/2020 11:35 AM EDT) Specimen Anatomical Collection Method Collection Time Receive d Time (Source) Location / / Volume Laterality AP Specimen 12/07/2020 11:35 12/07/2020 7:10 AM EDT PM EDT Narrative [facility] - 12/07/2020 7:10 PM EDT Specimen requisition ordered. ??Separate Pathology report to follow Resulting Agency Comment Spec In Lab Alayna Villalba MD PATHOLOGY/CYTOLOGY ORDERABLE S Performing Organization Address City/[facility]/[place] [address] Specimen to Pathology (12/07/2020 11:35 AM EDT) Specimen Anatomical Collection Method Collection Time Receive d Time (Source) Location / / Volume Laterality AP Specimen 12/07/2020 11:35 12/07/2020 7:10 AM EDT PM EDT Narrative [facility] - 12/07/2020 7:10 PM EDT Specimen requisition ordered. ??Separate Pathology report to follow Resulting Agency Comment Spec In Lab Alayna Villalba MD PATHOLOGY/CYTOLOGY ORDERABLE S Performing Organization Address City/[facility]/[place] [address] [facility] Surgical Pathology Report (12/07/2020 9:45 AM EDT) Component Value Ref Test Analysis Performed At [facility] Range Method Time Signature Surgical [id number] ? Location: [facility] Report The signing pathologist has (i) examined the relevant preparation(s) for the [facility] specimen(s) and (ii) rendered or confirmed the diagnosis(es) . H[facility]PITAL LAB[facility]ORY . ?Surgic al Pathology DIAGNOSIS A. Right temporal forehead, skin shave biopsy: - ??Basal cell carcinoma, connelly perficial and early nodular patterns, ?present at the peripheral and deep specimen edges B. Right trapezius, skin shave biopsy: - ??Basal cell carcinoma, connelly perficial and nodular patterns, focally pigmeneted, extending to the peripheral and deep specimen edges C. Right lateral back, skin shave biopsy: - ??Basal cell carcinoma, connelly perficial pattern, present at the peripheral specimen edge D. Right anterior shoulder, skin shave biopsy: - ??Basal cell carcinoma, connelly perficial pattern, ?? present at the deep specimen edge Electronically signed by: ?Nelly Shaw MD Verified: ??12/11/2020 11:12 ??Dermatopathologist Performed at: ??-[facility] Dept. of Pathology, [place], [place] SPECIMEN(S) SUBMITTED A - right temporal forehead (A), skin shave biopsy (1) B - right trapezius (B), skin shave biopsy (1) C - right lateral back (C), skin shave biopsy (1) D - right anterior shoulder (D), skin shave biopsy (1) CLINICAL INFORMATION A - 1.0 cm pink telangiectatic papule; infiltrative BCC B - 0.6 cm pink telangiectatic papule with pigment; pigmente d BCC C - 1 cm telangiectatic papule; BCC D - 1.0 cm pink telangiectatic papule; BCC SPECIMEN PROCESSING A - Labeled/Fixative: Right temporal forehead, formalin. Quantity/Size: ??Single, 0.6 x 0.4 x 0.1 cm. Tissue Description: Shave of a garcia skin papule. Sections/Processing: Inked, trisected and entirely submitted in 1 cassette labele d A1. B - Labeled/Fixative: Right trapezius, formalin. Quantity/Size: ??Single, 0.6 x 0.5 x 0.1 cm. Tissue Description: Shave of a garcia skin papule. Sections/Processing: Inked, trisected and entirely submitted in 1 cassette labele d B1. C - Labeled/Fixative: Right lateral back, formalin. Quantity/Size: ??Single, 0.6 x 0.5 x 0.1 cm. Tissue Description: Shave of a garcia skin papule. Sections/Processing: . SPECIMEN PROCESSING Inked, trisected and entirely submitted in 1 cassette labele d C1. D - Labeled/Fixative: Right anterior shoulder, formalin. Quantity/Size: ??Single, 0.7 x 0.5 x 0.1 cm. Tissue Description: Shave of garcia skin. Sections/Processing: Inked, trisected and entirely submitted in 1 cassette labele d D1. ??regulo Specimen (Source) Anatomical Collection Method Collection Time Re ceived Time Location / / Volume Laterality 12/07/2020 9:45 AM EDT Alayna Villalba MD PATHOLOGY/CYTOLOGY ORDERABLE S Performing Organization Address City/State/[place] [address] documented in this encounter Visit Diagnoses Diagnosis Superficial basal cell carcinoma (BCC) - Primary Neoplasm of uncertain behavior of skin Basal cell carcinoma (BCC), unspecified site Tinea corporis Dermatophytosis of the body Epidermal inclusion cyst Sebaceous cyst History of basal cell carcinoma (BCC) documented in this encounter Care Teams Housing Project Manager Relationship Specialty Start Date End Date Jermain Montalvo DO PCP - General 01/28/[address] [place] [address] documented as of this encounter
--- OUTSIDE RECORDS SUMMARY | 2022-03-08 00:36 | XMS_ITS | Encounter Summary ---
:1965 [place] [address] Care Team Providers Name Role Phone Jermain Montalvo DO Primary Care Provider Reason for Visit Reason Comments Skin Check Encounter Details Date Type Department Care Team Description 10/15/2013 Follow-Up Dermatology at Jaxson Waddell MD Scar (Primary Dx); [facility] Seborrheic keratosis, inflam ed; [address] [place] [address] [facility] [phone] RD-DERMATOLOGY [place] [id number] (Wo rk) Social History Tobacco Use Types Packs/Day Years Used Date Never Smoker Sex Assigned at Date Recorded Not on file documented as of this encounter Progress Notes Mini Swan MD - 10/15/2013 3:06 PM EST I directly supervised Dr. Lazcano during this office visit. Dr. Lazcano presented the history and physical exam to me. I then saw and examined this patient with Dr. Lazcano. We reviewed the history and pertinent details and I confirmed the physical findings. I agree with the details of the history and physical exam as documented in Dr. Lazcano's note. MINI SWAN MD Staff Physician Siobhan Lazcano MD - 10/15/2013 12:58 PM EST DERMATOLOGY - ESTABLISHED PATIENT FOLLOW-UP Date of service: 10/15/2013 Checo Sanchez : 1965 Dermatology Resident Note: Siobhan Lazcano MD Chief Problem: skin evaluation-follow up Chief Complaint Patient presents with ??? Skin Check Mr. Checo Sanchez is a 48 y.o. male. This is an established patient, last seen by Dr. Multani on 03/14/13 HPI: Mr. Sanchez presents to clinic today for a skin evaluation. The area near his right eyebrow which wastreated with liquid nitrogen have completely resolved. The site/scar located on his left trunk where the BCC was excised last year, is occasionaly tingly, and tender. Several months ago he noticed a flaky spot located on the right cheek which is bothersome when he shaves. No other skin concerns today Skin History: ?? BCC-left chest/excised 01/2013, outside [...] capsule Take 40 mg by mouth daily. ??? meloxicam (MOBIC) 7.5 mg tablet Take 7.5 mg by mouth daily. 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 - Skin: As per HPI; no other skin concerns. Examination: Examination of skin from the waist up was performed. This includes examination of the skin of the face, ears, neck, chest, axillae, left and right upper extremities, hands, back, and abdomen. Specific skin findings: 1. 0.3cm superficially eroded papule with stuck on appearance located on the right cheek 2. [place] elliptical shaped hypertrophic scar left chest/trunk-BCC, NER 3. 3mm brown stuck on papule left post-auricular 4. No pigmented lesions suspicous for malignancy Diagnosis/Assessment/Treatment Plan: 1. Possible Inflamed/irritated SK vs AK vs NMSC. Discussed options including biopsy, treat with LN vs do nothing. Discussed pros/cons of each. Unable to determine origin of lesion without biopsy, difficult lesion to diagnose clinically as it has been shaved over and is irritated. Patient is hesitant to biopsy at this time, agreed to recheck in 2 months and biopsy if still present. Procedure Note: Procedure: Destruction of lesion(s) with cryotherapy. Number: 1 Location: as above-right cheek Discussed procedure and expectations including risks (including risk of hypopigmentation) and benefits. Verbal consent obtained. Frozen with LN2, 15-30 second thaw time, TWICE. There were no complications; the patient tolerated the procedure well. Post-procedure expectations and wound care were reviewed. 2. Hypertrophic [id number] trunk excised 01/31 I discussed this condition with the patient and explored therapeutic options. I recommended injecting the spot with IL steroid to flatten scar, and recommended daily massage to breakdown collagen. Kenalog 5mg/ml, injected 0.5cc total [id number] - 3. Seborrheic keratosis- Reassured of benign nature, not treatment. The nature of sun-induced photo-aging and skin cancers is discussed. Sun avoidance, protective clothing, and the use of 30-SPF sunscreens is advised. Observe closely for skin damage/changes, and call if such occurs. Follow-up: RTC in 2 months to check right cheek and inject scar if needed. Appt. made at time of exit. Instructed to call for questions or concerns. I Laura Fowler LPN, am documenting this encounter acting as the scribe for and in the presence of Davie Lazcano MD I performed the above scribed service and agree with the accuracy of the documentation in this encounter Siohban Lazcano MD Resident in Dermatology [facility] Patient seen and evaluated with staff telecommunications professional: Mini Swan MD Section of Dermatology [facility] documented in this encounter Plan of Treatment Upcoming Encounters Date Type Specialty Care Team Description 03/15/2022 Procedure visit Dermatology Olamide Grayson MD [facility] DR DERMATOLOGY [place], [place] [address] (Wo rk) documented as of this encounter Visit Diagnoses Diagnosis Scar - Primary Scar condition and fibrosis of skin Seborrheic keratosis, inflamed Inflamed seborrheic keratosis History of basal cell carcinoma Personal history of other malignant neop lasm of skin documented in this encounter Administered Medications Inactive Administered Medications - up to 3 most recent administrations Medication Order MAR Action Action Date Dose Rate Site triamcinolone acetonide Given 10/15/2013 1:31 PM 5 mg 11- Chest (Left) (KENALOG) injection 5 mg EST 5 mg, Intra-Lesional, ONCE, 1 dose, On Mon10/15/13 at 1400, Routine documented in this encounter Care Teams Supervisor Aircraft Cleaning Relationship Specialty Start Date End Date Jermain Montalvo DO PCP - General 01/28/[address] [place] [address] documented as of this encounter
--- OUTSIDE RECORDS SUMMARY | 2022-03-08 00:36 | XMS_ITS | Encounter Summary ---
:1965 Author Organization [facility] [place] [address] Care Team Providers Name Role Phone Jermain Montalvo DO Primary Care Provider Reason for Visit Reason Comments Skin Check Encounter Details Date Type Department Care Team Description 03/14/2013 Office Visit Dermatology at [facility], DR MAGDALENA LUNSFORD (actinic keratosis) (Primary Dx); Road David Multani MD [facility] [place] [address] Inflamed seborrheic keratosis; [address] History of non[place] [phone] Social History Tobacco Use Types Packs/Day Years Used Date Never Smoker Sex Assigned at Date Recorded Not on file documented as of this encounter Progress Notes Hugo Hernandez LPN - 03/14/2013 7:47 AM EDT DERMATOLOGY CONSULT NOTE Date of service: 03/14/2013 Checo Sanchez : 1965 Provider: David Multani MD PROBLEM: The patient is seen at the request of Jermain Montalvo MD, who referred the patient to be seen for skin exam. HPI Checo Sanchez is a 47 y.o. year old male presents for a skin exam. He reports a recent basal cell carcinoma on left chest excised about 1 month ago. He also reports having spots frozen in the past by his PCP. Patient is concerned about a lesion on his right upper brow. 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 no DO YOU HAVE ARTIFICIAL JOINTS? no Less than 2 year old? DO YOU HAVE AN ARTIFICIAL HEART VALVE? no What blood thinner do you take? no Do you take antibiotics before procedures? no ADR: No Known Allergies MEDS: Current Outpatient Prescriptions Medication Sig Dispense Refill ??? gemfibrozil (LOPID) 600 mg tablet Take 600 mg by mouth 2 times daily (before meals). ??? omeprazole (PRILOSEC) 20 mg capsule Take 40 mg by mouth daily. ??? meloxicam (MOBIC) 7.5 mg tablet Take 7.5 mg by mouth daily. ROS General: feeling well Skin: denies other skin complaints EXAM General: NAD, pleasant, cooperative Skin: A total body skin exam except for areas covered by underwear was performed. This includes examination of the skin of the face, ears, neck, chest, axillae, left and right upper and lower extremities, hands and feet, abdomen, and except the areas covered by underwear were not examined. Significant skin findings: A. Indurated yellow papular lesion right infrabrow B. Type 1 skin type with obvious sun damage to exposed areas C. Evidence of sun damage uppermost back and posterior neck D. Geographic patch: scaly, dusky erythematous left chest E. Guttate hypomelanosis lateral and posterior neck F. Dermatofibroma right lateral knee G. Seborrheic keratosis right lateral knee H. 0.2-0.3cm scaly irregular pink papules x 2 left forearm ASSESSMENT/PLAN: A. ISK right infrabrow Procedure: Destruction of lesion(s) with cryotherapy. Number:1 Location: as above Discussed procedure and expectations including risks (including risk of hypopigmentation) and benefits. Verbal consent obtained. Frozen with LN2, 15-30 second thaw time, TWICE. There were no complications; the patient tolerated the procedure well. Post-procedure expectations and wound care were reviewed. B. Type 1 skin C. Sun damage Patient encouraged to wear hat and SPF >30 D. Tinea Versicolor E. Guttate hypomelanosis lateral and posterior neck F. Dermatofibroma Benign lesion. Patient reassured. G. Seborrheic keratosis Benign lesion. Patient reassured. H. Actinic keratosis x 2 left forearm: Procedure: Destruction of lesion(s) with cryotherapy. Number: 2 Location: as above Discussed procedure and expectations including risks (including risk of hypopigmentation) and benefits. Verbal consent obtained. Frozen with LN2, 15-30 second thaw time, TWICE. There were no complications; the patient tolerated the procedure well. Post-procedure expectations and wound care were reviewed. RTC in 6 months for skin exam, or prn. I am documenting this encounter acting as the scribe for and in the presence of Dr. Multani: HUGO HERNANDEZ LPN, [place] I performed the above scribed service and agree with the accuracy of the documentation in this encounter. David Multani MD Section of Dermatology [facility] documented in this encounter Plan of Treatment Upcoming Encounters Date Type Specialty Care Team Description 03/15/2022 Procedure visit Dermatology Olamide Grayson MD [facility] DERMATOLOGY [place], [place] [address] (Wo rk) documented as of this encounter Visit Diagnoses Diagnosis AK (actinic keratosis) - Primary Actinic keratosis Inflamed seborrheic keratosis History of nonmelanoma skin cancer Personal history of other malignant neop lasm of skin documented in this encounter Care Teams Glaze Maker Relationship Specialty Start Date End Date Jermain Montalvo DO PCP - General 01/28/[address] [place] [address] documented as of this encounter
--- OUTSIDE RECORDS SUMMARY | 2022-03-08 00:38 | XMS_ITS | Encounter Summary ---
:1965 Author Organization [facility] Address [address] [place] [address] Care Team Providers Name Role Phone Jermain Montalvo DO Primary Care Provider Encounter Details Date Type Department Care Team Description 12/14/2020 Lab Requisition [facility] Outr Resulting Lab, Pathology & Laboratory Provider [facility] [address] [place], [place] [address] Social History Tobacco Use Types Packs/Day Years Used Date Never Assessed Sex Assigned at Date Recorded Not on file documented as of this encounter Plan of Treatment Not on filedocumented as of this encounter Procedures Procedure Name Priority Date/Time Associated Comments Diagnosis PSA TOTAL, Routine 12/14/2020 15:36 Results for this DIAGNOSTIC EDT procedure are i n the results section. documented in this encounter Results PSA TOTAL, DIAGNOSTIC (12/14/2020 15:36 EDT) Pathologist Sig nature PSA 0.9 0.0 - 3.5 ng/mL [facility] Specimen Blood - Venous blood (substance) Narrative [facility] - 12/14/2020 22:19 EDT NOTE: Serum PSA concentration should not be in terpreted as absolute evidence for the presence or absence of malignant disease. Assayed on Siemens ADVIA Centaur XPT usi ng chemiluminescent technology.??Values obtained by using different assay methods cannot be used interchangeably. Performing Organization Address City/State/ZIP Code Phon e Number [facility] [address] [place] [address] SERVICES documented in this encounter Visit Diagnoses Not on filedocumented in this encounter Care Teams Telecommunications Technician Relationship Specialty Start Date End Date Jermain Montalvo, PCP - General 04/05/11 [address] [address] documented as of this encounter
--- OUTSIDE RECORDS SUMMARY | 2022-03-08 00:38 | XMS_ITS | Encounter Summary ---
:[address] [facility] Address [address] [place] [address] Care Team Providers Name Role Phone Unavailable Primary Care Provider Unavailable Encounter Details Date Type Department Care Team Description 10/18/2000 Results Only [facility] - Judy Zuluaga MD conversion [address] [place] [phone] Social History Tobacco Use Types Packs/Day Years Used Date Never Assessed Sex Assigned at Date Recorded Not on file documented as of this encounter Plan of Treatment Not on filedocumented as of this encounter Procedures Procedure Name Priority Date/Time Associated Diagnosis Comme nts SURGICAL PATHOLOGY Routine 10/18/2000 0:00 EST Re sults for this procedure are i n the results section. documented in this encounter Results SURGICAL PATHOLOGY (10/18/2000 0:00 EST) Pathology Report: SURGICAL PATHOLOGY REPORT TRUDY JAIMES Reports generated via electronic interface contain sarkis ginal data; LAB however they are lacking the format of the original re port. Caution should be taken when reading/interpreting unfo rmatted reports. Name: ? ROSAURA GASTON ? Accession #: ? [id number] ? : ? 1965 (Age: 35) ??M ? Collect Date: ? 10/18/2000 ? Location: ? [facility] ? Receive Date: ? 001 ? Provider: COLIN BRENNAN MD Copy to: JUDY ULLOA MD ? Final Pathologic Diagnosis: A. ?Antrum and duodenum, junction, biopsy : 1. ?Chronic active gastritis with ulcerat ion. 2. ?Bonifacio sta in is negative for Helicobacter pylori-like organisms. B. ?Esophagogastric junction, biopsies: 1. ?Cardiac and squamous mucosa with features consistent with reflux. 2. ?Bonifacio sta in negative for Helicobacter pylori-like organisms. 3. ?PAS and Alcian blue stains show no ev idence of intestinal metaplasia. Document reviewed and electronically signed by: Janeth Reece MD Report ??Date: 10/23/2000 16:58 By the signature above, the attending physician certif ies that he/she has personally conducted a gross and/or microscopic examin ation of the described specimens and rendered or confirmed the above diagnosi s. Specimen(s) Received: A. ?Prepyloric ulcer bx (#1) B. ?Bx E-G junction Clinical History: A. ?Prepyloric ulcer ??shallow, superific ial (#1) B. ?GERD, HH (#2) Gross Description: ? Received in Hollande' s fixative labelled Gaston and prepyloric bx is a garcia irregular 0.3 x 0.3 x 02 cm soft tissue fragment. ??The specimen is entirely submitted as (A). Received in Hollande' s fixa tive labelled Gaston and bx EG junction are two garcia-storey irregular soft tiss ues measuring 0.5 x 0.2 x 0.2 cm. ??The specimen is entirely submitted as (B). ??(Darian Chen)/[facility] End of Report Specimen Performing Organization Address City/State/ZIP Code Phon e Number [facility] [address] [place] [address] SERVICES [facility] [address] [place] [address] documented in this encounter Visit Diagnoses Not on filedocumented in this encounter
--- OUTSIDE RECORDS SUMMARY | 2022-03-08 00:38 | XMS_ITS | Encounter Summary ---
:1965 Author Organization [facility] Address [address] [place] [address] Care Team Providers Name Role Phone SelvinJermain pozo DO Primary Care Provider Encounter Details Date Type Department Care Team Description 01/31/2013 Results Only [facility]- Sharon Brown DO [phone] [facility] [place] [address] (Wo rk) Social History Tobacco Use Types Packs/Day Years Used Date Never Assessed Sex Assigned at Date Recorded Not on file documented as of this encounter Plan of Treatment Not on filedocumented as of this encounter Procedures Procedure Name Priority Date/Time Associated Diagnosis Comme [facility] SURGICAL PATHOLOGY Routine 01/31/2013 10:29 Resul ts for this EDT procedure are i n the results section. documented in this encounter Results SURGICAL PATHOLOGY (01/31/2013 10:29 EDT) Pathology Report: SURGICAL PATHOLOGY REPORT TRUDY JAIMES Reports generated via electronic interface contain sarkis ginal data; LAB however they are lacking the format of the original re port. Caution should be taken when reading/interpreting unfo rmatted reports. Name: ? ROSAURA GASTON ? Accession #: ? [id number] ? : ? 1965 (Age: 47) ??M ? Collect Date: ? 01/31/2013 ? Location: ? [facility] ? Receive Date: ? 013 ? Provider: SHARON GUARDADO DO Copy to: JERMAIN MONTALVO DO ? Final Pathologic Diagnosis: SKIN OF TRUNK, EXCISION: - Basal cell carcinoma, superficial multicentric type. - Margins negative for basal cell carcinoma. - Basal cell carcinoma present approximately 2.0 mm fr om closest peripheral margin. Microscopic Description: Emanating from the epidermis and extending into the papillary dermis are buds of atypical basal cells. ??The basal cells have scant cyt oplasm and round dark nuclei. ??Mitotic figures an d apoptotic bodies are evident. ??The nuclei at the periphery of the buds have a palisaded arrangeme nt. The superficial dermis is loose and, in some areas, there is retraction of the a typical cells from the stroma. (Dr. Lloyd)/rust Document reviewed and electronically signed by: DEE LLOYD MD Report ??Date: 02/04/2013 17:07 By the signature above, the attending physician certif ies that he/she has personally conducted a gross and/or microscopic examin ation of the described specimens and rendered or confirmed the above diagnosi s. Specimen(s) Received: Basal cell carcinoma of the trunk Clinical History: Basal cell carcinoma 1.5 cm in vivo in diameter; clinical diagnosis code: 173.67 ? Gross Description: Received in formalin labelled Rosaura Gaston and danna dowling biopsy is an unoriented ellipse of garcia-wh ite skin and subcutis measuring 2.9 x 1.4 cm and is excised to a depth of 0.7 cm . ??Eccentrically there appears to be a well healed scar measuring 0.6 x 0.3 cm. ??This area is pink-red t o white and slightly depressed. ??The margins of the specimen are inked ayush ck and the specimen is serially sectioned and submi tted entirely central sections as blocks (1) through (5) and block (6) tips reverse en face. (Diane marin/[facility] End of Report Specimen Performing Organization Address City/State/ZIP Code Phon e Number [facility] [address] [place] [address] SERVICES [facility] [address] [place] [address] documented in this encounter Visit Diagnoses Not on filedocumented in this encounter Care Teams Decorating Equipment Setter Relationship Specialty Start Date End Date Jermain Montalvo, PCP - General 04/05/[address] [place] [address] documented as of this encounter
--- OUTSIDE RECORDS SUMMARY | 2022-03-08 00:38 | XMS_ITS | Encounter Summary ---
:1965 Author Organization [facility] Address [address] [place] [address] Care Team Providers Name Role Phone Unavailable Primary Care Provider Unavailable Encounter Details Date Type Department Care Team Description 10/18/2007 Results Only [facility] - David Zuluaga MD conversion [address] [place] [phone] Social History Tobacco Use Types Packs/Day Years Used Date Never Assessed Sex Assigned at Date Recorded Not on file documented as of this encounter Plan of Treatment Not on filedocumented as of this encounter Procedures Procedure Name Priority Date/Time Associated Diagnosis Comme nts SURGICAL PATHOLOGY Routine 10/18/2007 0:00 EST Re sults for this procedure are i n the results section. documented in this encounter Results SURGICAL PATHOLOGY (10/18/2007 0:00 EST) Pathology Report: SURGICAL PATHOLOGY REPORT TRUDY JAIMES Reports generated via electronic interface contain sarkis ginal data; LAB however they are lacking the format of the original re port. Caution should be taken when reading/interpreting unfo rmatted reports. Name: ? ROSAURA GASTON ? Accession #: ? [id number] ? : ? 1965 (Age: 42) ??M ? Collect Date: ? 10/18/2007 ? Location: ? [facility] ? Receive Date: ? 008 ? Provider: COLIN BRENNAN MD Copy to: MANDY NELSON DO ? Final Pathologic Diagnosis: A. ?Colon, hepatic flexure, random, biops y: 1. ?No specific pathologic features. B. ?Colon, splenic flexure, biopsy: 1. ?No specific pathologic features. C. ?Colon, sigmoid, biopsy: 1. ?No specific pathologic features. D. ?Colon, rectum, biopsy: 1. ?Focal active proctitis, mild. Document reviewed and electronically signed by: Eduin Chavez MD Report ??Date: 10/22/2007 12:42 By the signature above, the attending physician certif ies that he/she has personally conducted a gross and/or microscopic examin ation of the described specimens and rendered or confirmed the above diagnosi s. Specimen(s) Received: A. ?Random bx hepatic flexure (#1) B. ? Bx splenic flexure (#2) C. ? Bx sigmoid (#3) D. ? Bx rectum (#4) Clinical History: ? Hx rectal bleeding; mild inflammatory changes i n rectum Gross Description: ? Received in Hollande' s fixative labelled Gaston and random bx hepatic flexure is a 0.1 x 0.1 x 0.1 cm portion of garcia- pink soft tissue. ??Submitted intact as (A). Received in Hollande's fixat ursula labelled Gaston and bx splenic flexure is a 0.3 x 0.1 x 0.1 cm portions of garcia-pink soft tissue. ??Submitted intact as (B). Received in Hollande's fixative labelled Gaston and bx sigmoid is a 0.3 x 0.1 x 0.1 cm portion of garcia-pink soft tissue. ??Submit delia intact as (C). Received in Hollande's fixative labelled Gaston and bx rectum are two portions of garcia-pink soft ti ssue averaging 0.2 x 0.1 x 0.1 cm. Submitted in toto as (D). ??(Jose Woodard)/[facility] End of Report Specimen Performing Organization Address City/State/ZIP Code Phon e Number [facility] [address] [place] [address] SERVICES [facility] [address] [place] [address] documented in this encounter Visit Diagnoses Not on filedocumented in this encounter
--- OUTSIDE RECORDS SUMMARY | 2022-03-08 00:38 | XMS_ITS | Encounter Summary ---
:1965 Author Organization [facility] Address [address] [place] [address] Care Team Providers Name Role Phone Jermain Montalvo DO Primary Care Provider Encounter Details Date Type Department Care Team Description 12/10/2020 Lab Requisition [facility] Outr Resulting Lab, Pathology & Laboratory Provider [facility] [address], [place] [address] Social History Tobacco Use Types Packs/Day Years Used Date Never Assessed Sex Assigned at Date Recorded Not on file documented as of this encounter Plan of Treatment Not on filedocumented as of this encounter Procedures Procedure Name Priority Date/Time Associated Comments Diagnosis PSA TOTAL, Routine 12/10/2020 7:12 EDT Results for this DIAGNOSTIC procedure are i n the results section. documented in this encounter Results PSA TOTAL, DIAGNOSTIC (12/10/2020 7:12 EDT) Pathologist Sig nature PSA <0.1 0.0 - 3.5 ng/mL [facility] Specimen Blood - Venous blood (substance) Narrative [facility] - 12/10/2020 18:08 EDT NOTE: Serum PSA concentration should not be in terpreted as absolute evidence for the presence or absence of malignant disease. Assayed on Siemens ADVIA Centaur XPT usi ng chemiluminescent technology.??Values obtained by using different assay methods cannot be used interchangeably. Performing Organization Address City/State/ZIP Code Phon e Number [facility] [address] [place] [address] SERVICES documented in this encounter Visit Diagnoses Not on filedocumented in this encounter Care Teams Verification Lead Relationship Specialty Start Date End Date Jermain Montalvo, PCP - General 8/16/11 [address] [place] [address] documented as of this encounter
--- OUTSIDE RECORDS SUMMARY | 2022-03-08 00:38 | XMS_ITS | Encounter Summary ---
:1965 Author Organization [facility] Address [address] [place] [address] Care Team Providers Name Role Phone Unavailable Primary Care Provider Unavailable Encounter Details Date Type Department Care Team Description 2011 Results Only [facility] Deny Adame , Laboratory Services - [address] VIVIENNE PATTON [address] [place] [address] [place] [address] [phone] Social History Tobacco Use Types Packs/Day Years Used Date Never Assessed Sex Assigned at Date Recorded Not on file documented as of this encounter Plan of Treatment Not on filedocumented as of this encounter Procedures Procedure Name Priority Date/Time Associated Diagnosis Comme [facility] SURGICAL PATHOLOGY Routine 2011 0:00 EDT Re sults for this procedure are i n the results section. documented in this encounter Results SURGICAL PATHOLOGY (2011 0:00 EDT) Pathology Report: SURGICAL PATHOLOGY REPORT ? TRUDY MG Reports generated via [employer] interface contain original data; ? LAB however they are lacking the format of the original report. ? Caution should be taken when reading/interpreting unformatted reports. ? Name: ? GASTON, ROSAURA J ? Accession #: ? [id number] ? : ? 1965 (Age: 46) ??M ? Collec t Date: ? 2011 ? Location: ? [facility] ? R eceive Date: ? 2011 ? Provider: DENY CIFUENTES SON DO ? Copy to: MANDY F OMAR DO ? Final Pathologic Diagnosis: ? A. ?Stomach, an trum, biopsy: ? 1. ?Fundic and antral mucosa with mild chronic gastritis. ? 2. ?? No Helicobacter pylori-like microorganisms identified on ? H&E-stained sections. ? B. ??Stomach, body, b iopsy: ? 1. ?? Fundic mucosa with minimal chronic gastritis. ? 2. ?? No Helicobacter pylori-like microorganisms identified on ? H&E-stained sections. ? C. ??Esophagus, dista l, biopsy: ? 1. ?? Squamous mucosa with rare intraepithelial eosinophils and focal acute ? esophagitis. ? 2. ?? PAS-amylase sta in negative for fungi. ? 3. ?? Fundic-type muc damien with mild chronic gastritis. ? 4. ?? No Helicobacter pylori-like microorganisms identified on ? H&E-stained sections. ? D. ?? Esophagus, mid, biopsies: ? 1. ?? Squamous mucosa with accentuation of rete ridges, basal cell ? hyperplasia, and ?intraepithelial lymphocytes suggestive of reflux ? esophagitis. ? E. ?Esophagus, proximal, biopsy: ? 1. ?Squamous mucosa with no significant pathologic features. ? Document reviewed and electr onically signed by: ? ISABELLA J BUTNOR MD ? Report ??Date: 04/05/2011 12 :33 ? By the signature above, the attending physician certifies that he/she has ? personally conducted a gross and/or microscopic examination of the described ? specimens and rendered or co nfirmed the above diagnosis. ? Specimen(s) Received: ? A. ?Bx antrum ? B. ? Body of stomach ? C. ? Distal esophagus x 2 ? D. ? Mid esophagus x 2 ? E. ? Proximal esophagus x 2 ? Clinical History: ? Acid reflux ? Gross Description: ? Received in formalin labelled Rosaura Gaston and bx antrum are two ? fragments of garcia and white s oft tissue which measure 0.3 x 0.2 x 0.2 cm and 0.2 x 0.2 x 0.2 cm, submitted en gil as (A). ? Received in formalin erin d Rosaura Gaston and body of stomach is a one ?? garcia fragment of soft tissue which measures 0.4 x 0.2 x 0.2 cm, submitted ? entirely as (B). ? Received in formalin erinRosaura Rice and distal esophagus are two ?? fragments of garcia soft tissue which measure 3.0 x 1.0 x 1.0 cm and 2.0 x 2.0 x ?? 2.0 cm, submitted entirely a s (C). ? Received in formalin erin Rosaura Lopez and mid esophagus x 2 are two fragments of white and garcia s oft tissue which measure 0.3 x 0.2 x 0.2 cm and 0.2 x 0.2 x 0.2 cm, submitted en gil as (D). ? Received in formalin erinRosaura Rice and proximal esophagus x 2 are two fragments of white and t an soft tissue which measure 0.4 x 0.2 x 0.2 cm and 0.2 x 0.2 x 0.2 cm, submitte d entirely as (E). ??(Dr. Saavedra)/[facility] ? End of Report ? Specimen Performing Organization Address City/State/ZIP Code Phon e Number [facility] [address] [place] [address] SERVICES [facility] [address] [place] [address] documented in this encounter Visit Diagnoses Not on filedocumented in this encounter
--- OUTSIDE RECORDS SUMMARY | 2022-03-08 00:38 | XMS_ITS | Encounter Summary ---
:1965 Author Organization [facility] Address [address] [place] [address] Care Team Providers Name Role Phone Jermain Montalvo DO Primary Care Provider Encounter Details Date Type Department Care Team Description 01/23/2013 Results Only [facility] Selvin Sam carmen Yenni, DO Laboratory Services - [address] [place] [address] [address] [facility] [place] [address] [phone] Social History Tobacco Use Types Packs/Day Years Used Date Never Assessed Sex Assigned at Date Recorded Not on file documented as of this encounter Plan of Treatment Not on filedocumented as of this encounter Procedures Procedure Name Priority Date/Time Associated Diagnosis Comme [facility] SURGICAL PATHOLOGY Routine 01/23/2013 0:00 EDT Re sults for this procedure are i n the results section. documented in this encounter Results SURGICAL PATHOLOGY (01/23/2013 0:00 EDT) Pathology Report: SURGICAL PATHOLOGY REPORT TRUDY JAIMES Reports generated via electronic interface contain sarkis ginal data; LAB however they are lacking the format of the original re port. Caution should be taken when reading/interpreting unfo rmatted reports. Name: ? ROSAURA GASTON ? Accession #: ? [id number] ? : ? 1965 (Age: 47) ??M ? Collect Date: ? 01/23/2013 ? Location: ? [facility] ? Receive Date: ? 013 ? Provider: JERMAIN MONTALVO DO Copy to: ? Final Pathologic Diagnosis: NOTE: This specimen was originally received on 01/23/13 and accessioned as [id number]. ??On 01/30/13, Dr. Montalvo's office informed us that the requisition and container were labelled with the wrong patient's n ophelia, date of and demographic information. ??A corrected requisition was submitted on 02/05/13 from the pathology department at [facility]. ??The specimen is re-accessioned as above. ??T he slide and block are relabelled. ??The charges were removed from the incorrect patient on 01/30/13. ??An ad dendum report has been issued on the original report. ??The diagnostic information in this report is unchanged. /klb SKIN OF CHEST, LEFT, PUNCH BIOPSY: - Basal cell carcinoma, nodular type. ??- Basal cell carcinoma present approx imately 0.1 mm from peripheral edge of punch biopsy specimen. Microscopic Description: Irregularly shaped islands o f atypical basal cells infiltrate the dermis. ??The basal cells have scant cytoplasm and round dark nuclei. ??Mitotic figures and apoptotic bodies are evident . ??The nuclei at the periphery of the islands have a palisaded arrangement. ??The islands are associated with a fibromyxoid stroma and there is cleft formation bet ween some of the islands and stroma. ??(Dr. Lloyd)/klb Document reviewed and electronically signed by: DEE LLOYD MD Report ??Date: 02/25/2013 16:49 By the signature above, the attending physician certif ies that he/she has personally conducted a gross and/or microscopic examin ation of the described specimens and rendered or confirmed the above diagnosi s. Specimen(s) Received: 2 mm punch Clinical History: 1.5 cm left chest, suspicious for BCCa Gross Description: Received in formalin with proper patient identif ication and 2 mm punch is a 0.2 x 0.2 cm light garcia skin punch biopsy, excise d to a depth of 0.1 cm. ??The specimen is submitted intact as (1). ??(CONCETTA Corcoran)/ sugar End of Report Specimen Performing Organization Address City/State/ZIP Code Phon e Number [facility] [address] [place] [address] SERVICES [facility] [address] [place] [address] documented in this encounter Visit Diagnoses Not on filedocumented in this encounter Care Teams Customer Acquisition Manager Relationship Specialty Start Date End Date Jermain Montalvo, PCP - General 04/05/[address] [place] [address] [place] [id number] documented as of this encounter
--- NOTE | 2022-03-08 07:15 | DI.CT_ITS ---
Exam(s) CT ABDOMEN PELVIS W EXAM: CT ABDOMEN PELVIS W CLINICAL HISTORY: Abd wall mass LUQ, see US, R19.02. TECHNIQUE: Imaging Protocol: Axial computed tomography images with coronal and sagittal reformatted images were created and reviewed CONTRAST MATERIAL: Intravenous: Omnipaque 100cc Oral: Yes. Oral contrast was administered for bowel opacification. COMPARISON: No exams were available for comparison FINDINGS: VISUALIZED LUNG BASES: Uppermost images reveal a 2 millimeter nodule in the lateral basal segment of the left lower lobe. No pleural effusions. ABDOMEN: There is no ascites. LIVER: Small focal density in the left hepatic lobe is probably a small hemangioma. No other focal h epatic findings. No dilated intrahepatic ducts. GALLBLADDER/BILIARY: Tiny density in the gallbladder neck noted, possibly calculus or polyp. No gall bladder wall edema. No pericholecystic fluid. CBD is not dilated. PANCREAS: In the pancreatic body there is a 6 x 5 millimeter fat density benign-appearing lesion, non calcified this is below the midline. No other focal pancreatic findings. SPLEEN: Spleen is not enlarged. No obvious intrasplenic lesions. Splenic and portal veins are paten t. ADRENALS: There are no significant adrenal masses. KIDNEYS:No cysts evident. No solid renal masses. No calculi nor hydronephrosis.. ABDOMINAL AORTA: Abdominal aorta is not enlarged. LYMPH NODES:There is no retroperitoneal nor paraaortic adenopathy. ABDOMINAL WALL: No evidence of significant anterior abdominal wall nor inguinal hernia. GI: There is no evidence of bowel obstruction, free air, nor abscess. PELVIS: GI: No evidence of appendicitis.There diverticuli in the descending colon but no evidence of acute di verticulitis. LYMPH NODES: There is no intrapelvic nor inguinal adenopathy. REPRODUCTIVE: Prostate and seminal vesicles age-appropriate URINARY BLADDER: No calculi nor obvious masses evident OSSEOUS: No significant osseous lesions. IMPRESSION: 1. Possible subtle tiny density in the gallbladder which may be a small stone or polyp or possibly ju st volume averaging. The gallbladder is not distended nor edematous. There is no pericholecystic fl uid. If clinically indicated this can be further studied with ultrasound. 2. Benign-appearing fat containing 6 x 5 millimeter noncalcified lesion in the pancreas body tail gabriel ction. This can be studied in [address] scan or MRI. 3. There are few diverticuli in the descending colon. No diverticulitis. No evidence of acute infla mmatory process in either iliac fossa. 4. RADIATION DOSE DELIVERED: 1,575.32mGy.cm Total DLP DATA REPOSITORY: All CT scans at this facility are submitted to the National Radiology Data Registry (NRDR) Dose Index Registry (DIR) with the [employer] (ACR). RADIATION OPTIMIZATION: All CT scans at this facility use at least one of these dose optimization te chniques: automated exposure control; mA and/or kV adjustment per patient size (includes targeted exa ms where dose is matched to clinical indication); or iterative reconstruction.
[2022-03-08] MEDS: Omnipaque 350 MG/ML 100 ML BTL IJ (09:47)
== END ==
PROVIDERS: PCP Family Medicine; Visit Provider Surgery
DX: K86.89 Other specified diseases of pancreas (principal); K57.30 Diverticulosis of large intestine without perforation or abscess without bleeding; R19.02 Left upper quadrant abdominal swelling, mass and lump
CPT/HCPCS: 74177; J3490

== ENCOUNTER 2022-10-25 03:40 | Outpatient (CLI) | payer BC, SELFPAY ==
[2022-10-25 13:36] LABS: ALT 59 U/L (16-63); AST 29 U/L (15-37); Alkaline Phosphatase 73 U/L (46-116); Anion Gap 9.2 mmol/L (3-11); BUN 17 mg/dL (7-18); Bilirubin, Total 0.5 mg/dL (0.2-1.0); CO2 26.8 mmol/L (21.0-32.0); Calcium 9.4 mg/dL (8.5-10.1); Calculated LDL 80 mg/dL (<100); Chloride 105 mmol/L (98-107); Cholesterol 171 mg/dL (<200); Estimated GFR 88.33 (mL/min/1.73m2); Glucose 116 mg/dL (74-106); HDL Cholesterol 45 mg/dL (40-60); Potassium 4.2 mmol/L (3.5-5.1); Sodium 141 mmol/L (136-145); Total Protein 7.9 g/dL (6.4-8.2); Triglyceride 230 mg/dL (<150)
[2022-10-27 10:00] LABS: Hepatitis C Ab w Rflx HCV PCR Negative (Negative)
[2022-10-27 10:13] LABS: HIV-1/2 Ag & Ab Screen Negative (Negative)
== END 2022-10-25 03:41 | disposition home or self-care (01) ==
PROVIDERS: PCP Family Medicine; Visit Provider Family Medicine
DX: Z00.00 Encounter for general adult medical examination without abnormal findings (principal); E78.5 Hyperlipidemia, unspecified; Z11.4 Encounter for screening for human immunodeficiency virus [HIV]
CPT/HCPCS: 36415; 80053; 80061; 86803; 87389

== ENCOUNTER 2023-02-08 06:08 | Day surgery (SDC) | payer BC, SELFPAY ==
[2023-02-08] VITALS (12 sets, daily range): BP systolic 100–154; BP diastolic 48–97; PULSE 48–58; RESP 16–24; TEMP 36.1–36.5; O2SAT 95–100; BMI 30.5
--- NOTE | 2023-02-08 06:28 | PGE_ITS ---
Date of Service Date of service: 02/08/23 Time of Service: 06:28 Assessment and Plan Assessment and plan (1) Ventral hernia: Status: Acute Assessment and plan: Checo is a pleasant 57 year old male with a ventral hernia just to the left of midline. I recommend a laparoscopic repair so that I can take down the falsiform ligament and place a large mesh. We reviewed the procedure in detail again in [facility] prior to his procedure, as well as the risks, benefits and complications.? Risks, benefits and complications have been reviewed. Complications include but are not limited to bleeding, pain, infection, injury to underlying structures like bowel, recurrence, hematoma, seroma, chronic pain and adverse reaction to the medication.? Questions were entertained and answered to their satisfaction. The patient understood the procedure and its complications and he wished to proceed. No guarantees were given or implied. Proceed with Laparoscopic Ventral hernia repair with mesh
--- NOTE | 2023-02-08 06:30 | ROE_ITS ---
Date of service: 02/08/23 Time of Service: 08:36 Operative Note Operative Note DATE OF PROCEDURE: 02/08/23 PRE-OP DIAGNOSIS: Ventral hernia POST-OP DIAGNOSIS: same PROCEDURE: Laparoscopic Ventral Hernia repair with mesh SURGEON: Charlene Ralph CAR WASH SUPERVISOR: Eula Arthur ANESTHESIA TYPE: Local By Surgeon and General LMA/ETT Refer to Anesthesia Record ESTIMATED BLOOD LOSS: 3 PATHOLOGY: none sent COMPLICATIONS: None Patient was transported to: PACU Patient's condition: stable Implants: Ventralight ST Mesh with ECHO PS Positioning System: [id number]- [id number] 2023-07-18 Indications: Checo is a pleasant 57 year old male with a ventral hernia just to the left of midline. I recommend a laparoscopic repair so that I can take down the falsiform ligament and place a large mesh. We reviewed the procedure in detail as well as the risks, benefits and complications.? Risks, benefits and complications have b een reviewed. Complications include but are not limited to bleeding, pain, infection, injury to underlying structures like bowel, recurrence, hematoma, seroma, chronic pain and adverse reaction to the medication.? Questions were entertained and answered to their satisfaction. The patient understood the procedure and its complications and he wished to proceed. No guarantees were given or implied. Procedure Description: After informed consent was obtained the patient was taken to the operating room placed in the supine position. SCDs were applied, as well as monitors. A timeout was done. The patient was then placed under general anesthesia and intubated without any difficulty. At this point the abdomen was prepped and draped in a sterile surgical fashion with chlorhexidine. A second timeout was done and the patient's name, date of , operation to be performed, DVT prophylaxis, antibiotic given, and fire risk was assessed. 0.25% bupivocain was injected into the dermis in the right upper quadrant. A 12 mm incision was made with an 11 blade. The subcutaneous tissue was dissected down to the fascia with a hemostat. A 12 mm port was placed under direct visualization into the abdomen. The abdomen was insufflated and adhesions of omentum up to the umbilical hernia mesh was noted. Local anesthetic was then injected in the right lower Quadrant. A small 5 mm incision was made with an 11 blade and a 5 mm port was placed under direct visualization into the abdomen. A second 5 mm port was placed under direct visualization into the LLQ. Using a laparoscopic Ligasure the omentum was gently taken down. Omentum was gently removed from the hernia defect which was in the midline at the falsiform ligament. Once all the omentum was removed from the hernia defect, the fasliform ligament was taken down in order to place a mesh. The insufflation was stopped and some of the air was removed to measure the defeect. The defect measured 4 x 3 cm approximately. The omentum was then inspected,and no active bleeding was noted. A 11.5 cm ECHO PS CHOCO mesh was placed into the abdomen through the 11 port site. A small puncture was made over the hernia defect and using a Dennis Vega the blue insuflation piece of the mesh was pulled up. The balloon along the mesh was inflated. The mesh was pulled up and secured by placing a hemostat on the insuflation catheter. Using a 5 mm Tacker, the mesh was tacked up to the abdominal wall circumferentially. Once in good position the mesh balloon was deflated and removed through the 11 port site. The omentum was inspected one more time and no bleeding was noted. Good coverage of the entire midline incision was noted with this mesh. 40 cc of 0.25% Bupivocaine was injected in to the pre-peritoneal space under direct visualization circumferentially around the mesh. 10 cc of the local was injected above the liver. The 11 mm port was removed. The 5 mm ports were removed under direct visualization and there was no bleeding from the fascia. The 11 mm fascia was closed with a 0 vicryl figure of eight suture. The skin was then closed with 4-0 Vicryl. The skin was cleaned and dried and dermabond was applied. The patient was woken up, extubated and taken back to recovery room in stable condition. There were no immediate complications. Sponge, instrument and needle counts were correct at the end of the case x2.
--- NOTE | 2023-02-08 06:32 | W.PM.DSUDISC ---
Date of service: 02/08/23 Time of Service: 10:53 Discharge Plan Disposition Patient Disposition: Home Condition: Stable Discharge Details Reason For Visit: Ventral hernia repair Attending Provider: Charlene Ralph Primary Care Provider: Yvonne Bo Home Meds and New Rx's Prescriptions: New tramadol 50 mg tablet 50 mg PO Q6H PRNQty: 14 0RF Continued rosuvastatin [Crestor] 10 mg tablet 10 mg PO DAILY Qty: 90 3RF multivitamin 1 EACH capsule 1 cap PO DAILY Fish Oil 1 EACH capsule 1 ea PO BID omeprazole 40 mg capsule,delayed release(DR/EC) 40 mg PO EVERY OTHER DAY Qty: 45 3RF Discharge Instructions Instructions: Laparoscopic Herniorrhaphy (DC) Additional Instructions: Activity at Home after surgery: 1. Make sure you walk outside at least 4 times per day 2. You should be able to climb a flight of stairs 3. No driving while in pain or taking pain medications 4. No strenuous activity or heavy lifting for 2 weeks (laparoscopic surgery) Diet, Nutrition, & wound healin. Avoid alcohol until after you are recovered from your surgery 2. Make sure to eat plenty of lean protein (meat, fish, eggs, cottage cheese, beans) 3. Eat a variety of fruits and vegetables. Eat plenty of high fiber foods to avoid constipation. 4. Drink plenty of liquids to stay hydrated and avoid constipation Pain Medications: 1. Tylenol 650mg every 6 hours as needed and Ibuprofen 600 mg every 6 hours as needed. You may alternate between the 2 medications every 3 hours 2. If a narcotic has been prescribed take as directed only for breakthrough pain For Constipation: 1. Take Milk of Magnesia or MiraLax as needed for constipation Other: 1. You may shower daily. Do not scrub the incisions 2. Do not soak the incisions for 1 week 3. You may alternate ice and heat as needed for pain and swelling Wound Care: 1. Keep the incisions clean and dry Please call our office if you develop: 1. Fevers >101.5 2. Nausea or Vomiting 3. Worsening pain 4. Redness and thick discharge from the wounds If after hours please call the Hospital at and ask to speak to the on-call surgeon Referrals: Charlene Ralph MD [ [facility] STAFF PHYSICIAN] - 02/22/23 1:15 am Activity:: as above Shower/Bathe:: 24 hours Diet:: As Tolerated Discharge Orders Discharge Orders: Discharge Order (Routine); Ordered 02/08/23 Ordered By: Charlene Ralph DS: Diagnosis Discharge Diagnosis (1) Ventral hernia: Status: Acute Asessment and Plan: The patient is doing well post-op from their Laparoscopic Ventral hernia repair surgery.? They are having no nausea or vomiting. They are tolerating liquids and a snack. The pt is not having any chest pain or SOB.? Their pain is adequately controlled. They have been able to urinate.? ?HEENT:? no eye pain/drainage/redness/swelling. Mild sore throat ?Cardio- NSR, no chest pain, BP stable- see VS record ?Pulm: no sob or productive cough. No hemoptysis ?Incision- dressing is c/d/i w/ no excessive bleeding or drainage ?I discussed with the patient the findings at the time of surgery and the patient?s progress. ?We reviewed expectations at home; what the patient could expect for recovery time, and in the post-operative period.? We discussed the importance of walking to avoid blood clots and pneumonia.? We discussed and reviewed the patient's post-operative wound care and dressing needs.?? We reviewed their step-hameed pain management plan, Rx called to the pharmacy of their choice.? We reviewed activity and limitations-see discharge instructions. We reviewed warning signs, and when to seek medical attention- see d/c instructions.?? Patient was given a postoperative follow-up appointment. Patient verbalized understanding of their postoperative instructions, how do to take care of themselves and their incision, and the pain management plan. Please see discharge instructions.?
--- NOTE | 2023-02-08 06:42 | W.ANESPRE ---
General Info Date of Service Date Performed: 02/08/23 Height: 6 ft 1 in Weight: 105.1 kg Body Mass Index (BMI): 30.5 Surgical Procedure: Operation Date: 02/08/23 07:40 Proposed Procedure Side Surgeon p Hernia Ventral Laparoscopic w/Mesh Charlene Ralph MD Meds Allergies and Home Medications Allergies Allergy/AdvReac Type Severity Reaction Status Date / Time ranitidine AdvReac Unknown GYNECOMASTI Unverified 02/08/23 06:27 A Home Medication Medication Instructions Recorded multivitamin 1 cap PO DAILY 12/17/12 omega 8-xwr-vwq-fish oil 120 1 ea PO BID 06/10/15 mg-180 mg-500 mg capsule (Fish Oil) omeprazole 40 mg capsule,delayed 40 mg PO EVERY OTHER DAY #45 caps 10/03/22 release rosuvastatin 10 mg tablet (Crestor) 10 mg PO DAILY #90 tabs 10/21/22 Current Visit Medications: Current Medications Generic Name Dose Route Start Last Admin Trade Name Freq PRN Reason Stop Dose Admin Acetaminophen 1,000 mg 02/08/23 06:00 Acetaminophen 500 Mg Tab PO 03/09/23 23:59 PREOP WILMER Celecoxib 200 mg 02/08/23 06:00 Celecoxib 200 Mg Cap PO 03/09/23 23:59 PREOP WILMER Gabapentin 600 mg 02/08/23 06:00 Gabapentin 300 Mg Cap PO 03/09/23 23:59 PREOP WILMER Ringer's Solution 1,000 mls @ 80 mls/hr 02/08/23 06:00 IV 03/09/23 23:59 INFUSION WILMER Cefazolin Sodium/Dextrose 2 gm in 50 mls @ 100 mls/hr 02/08/23 06:00 Ancef Duplex IVPB 03/09/23 23:59 PREOP WILMER Ondansetron HCl 4 mg/ Sodium 52 mls @ 200 mls/hr 02/08/23 06:34 Chloride IVPB 03/10/23 06:33 Q6H PRN PRN IV Miscellaneous Supplies 1 each 02/08/23 06:00 Iv Access IV 03/09/23 23:59 DIRECTED WILMER Morphine Sulfate 2 mg 02/08/23 06:34 Morphine 4 Mg/Ml Syr IVP 03/10/23 06:33 Q1H PRN PRN Sodium Chloride 0 ml 02/08/23 06:00 Normal Saline Flush 10 Ml Syr IV 03/09/23 23:59 PRN PRN Sodium Chloride 0 ml 02/08/23 06:00 Normal Saline 10 Ml Vial IJ 03/09/23 23:59 DIRECTED PRN Sterile Water 0 ml 02/08/23 06:00 Water,Injection,Sterile 10 Ml Vial IJ 03/09/23 23:59 DIRECTED PRN Tramadol HCl 50 mg 02/08/23 06:34 Tramadol 50 Mg Tab PO 03/10/23 06:33 Q6H PRN PRN Pain PFSH Active Problems Active Problems: Problem Status Onset Code GERD (gastroesophageal reflux disease) Gynecomastia, male N62 Conductive hearing loss H90.2 Hyperlipidemia E78.5 Diastasis recti M62.08 Abdominal mass, left upper quadrant R19.02 Ventral hernia K43.9 Medical History Medical History Actinic keratosis Basal cell carcinoma of truncal skin (01/31/13) DR. GUARDADO; managed at [facility] every 6 months. Gastric motor function disorder Ulcer disease; H.H. Hiatal hernia Surgical History Surgical History S/P skin cancer resection basal cell Total knee replacement status L:2018 R:2019 Umbilical hernia s/p repair Tobacco Smoking/Tobacco Use Status: Never Second hand exposure: No Alcohol Alcohol Intake: current Alcohol intake frequency: a few times a month Alcohol type: beer Substance Use Substance use: Never Substance use type: does not use Vital Signs and Lab Results Vital Signs Most Recent Vital Signs in EMR: Most Recent Vital Signs Temp Pulse Resp BP Pulse Ox 36.1 C L 54 L 16 154/90 H 99 02/08/23 06:15 02/08/23 06:15 02/08/23 06:15 02/08/23 06:15 02/08/23 06:15 Lab Results Blood Type / Crossmatch: No Data to Display Complete Blood Count: No Data to Display Complete Metabolic Panel: No Data to Display Liver Function Panel: No Data to Display Coagulation Panel: No Data to Display Cardiac Panel: No Data to Display Arterial Blood Gas: No Data to Display Venous Blood Gas: No Data to Display Pancreas Panel: No Data to Display Thyroid Panel: No Data to Display Infectious Disease: No Data to Display Blood Cultures: No Data to Display Toxicology Panel: No Data to Display Anesthesia Assessment and Plan Anesthesia History Personal History: No History of Anesthesia Complications Family History: No Family History of Anesthesia Complications Exercise Tolerance Exercise Tolerance: Metabolic Equivalents>4 Pertinent Negatives Pertinent Negatives: No Symptoms of GERD, No Major Cardiovascular Symptoms or Complaints, No Major Pulmonary Symptoms or Complaints and No History of CVA/TIA Cardiac & Pulmonary Exam Cardiac Exam: Normal S1/S2 Heart Sounds Pulmonary Exam: Clear Bilateral Breath Sounds Implantable Cardiac Device Does patient have a Pacemaker or an ICD?: No Airway Exam Known Difficult Airway: No Mallampati Class: 3 Mouth Opening: Normal (> 3cm) Thyromental Distance: Greater than 3 cm Neck Range of Motion: Full ROM Neck Circumference: Normal Teeth Condition: Normal Dentition and Generalized Poor Dentition ASA Classification ASA Score: ASA 2 Emergency Case?: No NPO Status NPO Status: NPO Clears >2 hours, Solids >8 hours Anesthesia Plan Resuscitation Status: Full Code Anesthesia Technique: General Anesthesia Airway Planned: Endotracheal Tube Pain Management: Surgeon and patient request nerve block (Consented for a postop block for pain (either rectus sheath or TAP)) Monitors Used: Standard Monitors
--- NOTE | 2023-02-08 06:45 | HPE_ITS ---
Assessment and Plan Assessment and plan (1) Ventral hernia: Status: Acute Assessment and plan: Checo is a pleasant 57 year old male with a ventral hernia just to the left of midline. I recommend a laparoscopic repair so that I can take down the falsif orm ligament and place a large mesh. We reviewed the procedure in detail as well as the risks, benefits and complications.? Risks, benefits and complications have been reviewed. Complications include but are not limited to bleeding, pain, infection, injury to underlying structures like bowel, recurrence, hematoma, seroma, chronic pain and adverse reaction to the medication.? Questions were entertained and answered to their satisfaction. The patient understood the procedure and its complications and he wished to proceed. No guarantees were given or implied. Anesthesia: general Previous surgical intolerances: No Previous surgical complications: No Pulmonary risk factors: no Date of surgery: 02/08/23 Planned procedure: Yes Sleep apnea risks: No Can climb one flight of stairs (12-13 steps) in less than 30 seconds without stopping and without symptoms: Yes The surgery proposed for this patient is: low risk Active cardiac conditions: none Active risk factors: none ASA (acetylsalicylic acid): not used Beta blockers: not used Proceed with Laparoscopic Ventral hernia repair with mesh History of Present Illness Narrative: I am seeing Checo in [facility] today for his Laparoscopic Ventral Hernia repair with mesh. I saw him back in December of last year and then again in November of this year, for a mass just to the left of midline. I ordered an US which unfortunately could not differentiate between this being a hernia vs a lipoma. I ordered a CT scan which showed a hernia. Checo is ready to have this repaired during his summer vacation. The hernia has not increased in size that he is aware of and it is still not painful. He wants to have it repaired before it becomes an issue for him. he hasn't had any new issues since I saw him in November. He is otherwise pretty healthy. He denies any chest pain or SOB with activity. His PMHx is significant for reflux which is well controlled with omeprazole daily. Review of Systems All systems reviewed & are unremarkable except as noted in HPI and below PFSH All Active Problems GERD (gastroesophageal reflux disease) (Chronic) Gynecomastia, male (Chronic) felt to be due to gemfibrozil. Conductive hearing loss (Chronic) RIGHT EAR Hyperlipidemia (Chronic) Type 4 hyperlipidemia with triglycerides high at 750 Diastasis recti (Acute) Abdominal mass, left upper quadrant (Acute) Ventral hernia (Acute) Medical History Actinic keratosis Basal cell carcinoma of truncal skin (01/31/13) DR. GUARDADO; managed at [facility] every 6 months. Gastric motor function disorder Ulcer disease; H.H. Hiatal hernia Surgical History S/P skin cancer resection basal cell Total knee replacement status L:2018 R:2019 Umbilical hernia s/p repair Family History Mother Essential hypertension Hyperlipidemia Father Heart disease A-FIB Brother Neoplasm SKIN Maternal Grandfather , 61 Stroke Maternal Grandmother , 86 Essential hypertension Paternal Grandmother , 69 Personal history of malignant neoplasm BREAST Son No problems noted. 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 Pets and animals: Yes Pets and animals: cat(s) Sexually active: Yes Do you think of yourself as: straight/heterosexual Current gender identity: male What is your relationship status?: How often do you talk on the phone with friends or family?: three or more times per week How often do you get together with friends or relatives?: three or more times per week How often do you attend adventist or christianity services?: decline to answer Do you belong to any clubs or organized social groups?: yes Panel score (0-1 are the most socially isolated patients): 2 What type of physical activity do you participate in: walking and other Details: PT Duration: 30-45 minutes/day Frequency: 5-6 times per week Isis/Restoration: Sabianism Special isis needs: No Seatbelt use: always Helmet use: No Drive intox or ride w/intox transporter driver: No Do you feel safe at home: Yes Do you feel safe in your relationship?: Yes Meds Allergies and Home Medications Allergies Allergy/AdvReac Type Severity Reaction Status Date / Time ranitidine AdvReac Unknown GYNECOMASTI Unverified 02/08/23 06:27 A Home Medications Medication Instructions Recorded Confirmed Type multivitamin 1 cap PO DAILY 12/17/12 02/08/23 History omega 6-tyg-dfl-fish oil 120 1 ea PO BID 06/10/15 02/08/23 History mg-180 mg-500 mg capsule (Fish Oil) omeprazole 40 mg capsule,delayed 40 mg PO EVERY OTHER DAY #45 caps 10/03/22 02/08/23 Rx release rosuvastatin 10 mg tablet (Crestor) 10 mg PO DAILY #90 tabs 10/21/22 02/08/23 Rx Exam Const General: cooperative, comfortable and no acute distress Nutritional Appearance: average body habitus Orientation: alert and oriented x3 HENMT Head: normocephalic and atraumatic Resp Effort & Inspection: normal respiratory effort Auscultation: clear to auscultation bilaterally Cardio Rate: regular rate Rhythm: regular rhythm Heart Sounds: no gallops, no murmurs and no rubs GI Inspection: normal to inspection and visible herniation Palpation: soft, hernia (just to the left of midline) and nontender Results Last Vital Signs Temp 97.0 F L 02/08/23 06:15 Pulse 54 L 02/08/23 06:15 Resp 16 02/08/23 06:15 BP 154/90 H 02/08/23 06:15 Pulse Ox 99 02/08/23 06:15
[2023-02-08] MEDS: Gabapentin 300 MG CAP 600 MG PO (06:46)
[2023-02-08] MEDS: Acetaminophen 500 MG TAB 1000 MG PO (06:47)
[2023-02-08] MEDS: Celecoxib 200 MG CAP PO (06:47)
[2023-02-08] MEDS: Lactated Ringers 1,000 ML 80 ML IV (06:52)
[2023-02-08] MEDS: ceFAZolin 2 GM/50 ML BAG IVPB (07:35)
[2023-02-08] MEDS: Bupivacaine 0.25% Pres-Free 30 ML VIAL ×2 (08:27→08:30)
[2023-02-08] MEDS: Normal Saline 10 ML VIAL IJ (09:10)
[2023-02-08] MEDS: HYDROmorphone 2 MG/ML SYR IVP ×4 (09:10→09:49)
[2023-02-08] MEDS: Ketorolac 15 MG/ML VIAL IVP (09:28)
[2023-02-08] MEDS: traMADol 50 MG TAB PO (10:38)
--- NOTE | 2023-02-08 10:40 | W.ANESPOSTOP ---
Postoperative Evaluation Date, Time and Location Date Performed: 02/08/23 Time Performed: 10:40 Patient Location: Day Surgery Unit Vital Signs Most Recent Imported Vital Signs: Most Recent Vital Signs Temp Pulse Resp BP Pulse Ox 36.1 C L 58 L 18 109/97 H 97 02/08/23 10:40 02/08/23 10:40 02/08/23 10:40 02/08/23 10:40 02/08/23 10:40 Pain Score Most Recent Pain Score: Most Recent Pain Score Pain Level 2 02/08/23 10:40 Assessment Mental Status: Awake (Alert & Oriented to Patient Baseline) Airway and Respiratory Function: Patent airway with normal (patient baseline) respiratory exam Cardiovascular Function: Hemodynamically Stable Hydration Status: Adequately Hydrated Nausea & Vomiting: No Nausea or Vomiting Pain: Pt. Denies Any Pain Peripheral Nerve Block: Patient did not receive a nerve block
== END 2023-02-08 11:20 | disposition home or self-care (01) ==
PROVIDERS: PCP Family Medicine; Visit Provider Surgery
PROC: 0WQF4ZZ Repair Abdominal Wall, Percutaneous Endoscopic Approach (ICD-10-PCS; CPT 49593; principal; 2023-02-08 07:30)
DX: K43.9 Ventral hernia without obstruction or gangrene (principal); K21.9 Gastro-esophageal reflux disease without esophagitis
CPT/HCPCS: 49593; C1781; J0690; J1100; J1170; J1885; J2001; J2250; J2405; J2704

== ENCOUNTER 2024-04-16 14:00 | Outpatient (CLI) | payer BC, SELFPAY ==
[2024-04-16 14:19] LABS: Hemoglobin A1C 5.7 % (<5.7)
[2024-04-16 14:47] LABS: Anion Gap 9.5 mmol/L (3-11); BUN 17 mg/dL (7-18); CO2 27.5 mmol/L (21.0-32.0); CREATININE 1.1 mg/dL (0.70-1.30); Calcium 8.9 mg/dL (8.5-10.1); Calculated LDL 96 mg/dL (<100); Chloride 104 mmol/L (98-107); Cholesterol 164 mg/dL (<200); Estimated GFR 77.81 (mL/min/1.73m2); Glucose 127 mg/dL (74-106); HDL Cholesterol 45 mg/dL (40-60); Potassium 3.8 mmol/L (3.5-5.1); Sodium 141 mmol/L (136-145); Triglyceride 118 mg/dL (<150)
[2024-04-16 23:26] LABS: PSA, Screening 0.7 ng/mL (<=3.5)
== END 2024-04-16 14:01 | disposition home or self-care (01) ==
LOC: LBO 14:02
PROVIDERS: PCP Family Medicine; Visit Provider Family Medicine
DX: Z13.6 Encounter for screening for cardiovascular disorders (principal); Z13.1 Encounter for screening for diabetes mellitus; R73.01 Impaired fasting glucose; Z12.5 Encounter for screening for malignant neoplasm of prostate
CPT/HCPCS: 36415; 80048; 80061; 84153; 83036